=== PATIENT | male | born 1955 | race Caucasian/White ===

== ENCOUNTER 2018-02-20 16:16 | Inpatient (IN) | payer MEDICARE ==
--- NOTE | 2018-02-20 17:49 | ER Document Report ---
ED Medical Screen (RME) - General Chief Complaint: Abdominal Pain Stated Complaint: ABDOMINAL PAIN Time Seen by Provider: 02/20/18 17:36 Mode of Arrival: Wheelchair Information source: Relative Notes: 62-year-old male history of cirrhosis presents altered patient is on lactulose is concerned about elevated potassium Kd I have greeted and performed a rapid initial assessment of this patient. A comprehensive ED assessment and evaluation of the patient, analysis of test results and completion of the medical decision making process will be conducted by additional ED providers. PHYSICAL EXAMINATION: GENERAL: ill appearing HEAD: Atraumatic, normocephalic. EYES: Pupils equal round extraocular movements intact, conjunctiva are normal. ENT: Nares patent NECK: Normal range of motion LUNGS: No respiratory distress Musculoskeletal: Normal range of motion NEUROLOGICAL: spasms noted , not acting at baseline SKIN: Warm, Dry, normal turgor, no rashes or lesions noted. TRAVEL OUTSIDE OF THE [place] IN LAST 30 DAYS: No - Related Data Allergies/Adverse Reactions: No Known Allergies Allergy (Verified 02/20/18 17:40) Past Medical History - Social History Chew tobacco use (# tins/day): No Frequency of alcohol use: None Drug Abuse: None - Past Medical History Cardiac Medical History: Reports: Hx Congestive Heart Failure, Hx Coronary Artery Disease, Hx DVT, Hx Hypercholesterolemia, Hx Hypertension Denies: Hx Pulmonary Embolism Pulmonary Medical History: Reports: Hx Asthma Denies: Hx COPD, Hx Sleep Apnea Neurological Medical History: Denies: Hx Seizures Endocrine Medical History: Reports: Hx Diabetes Mellitus Type 1. Denies: Hx Hyperthyroidism, Hx Hypothyroidism Renal/ Medical History: Denies: Hx Peritoneal Dialysis GI Medical History: Reports: Hx Cirrhosis, Hx Gastroesophageal Reflux Disease, Hx Hepatitis Musculoskeltal Medical History: Reports Hx Arthritis - Osteoarthritis. Skin Medical History: Denies Hx Eczema, Denies Hx Psoriasis Psychiatric Medical History: Reports: Hx Depression Infectious Medical History: Reports: Hx Hepatitis Past Surgical History: Reports: Hx Appendectomy, Hx Cardiac Surgery - CABG X2, Hx Coronary Artery Bypass Graft, Hx Orthopedic Surgery - neck - Immunizations Immunizations up to date: Yes Hx Diphtheria, Pertussis, Tetanus Vaccination: No Physical Exam - Vital signs Vitals: Temp Pulse Resp BP Pulse Ox 99.0 F 57 L 16 113/45 L 95 02/20/18 16:30 02/20/18 16:30 02/20/18 16:30 02/20/18 16:30 02/20/18 16:30 Course - Vital Signs Vital signs: Temp Pulse Resp BP Pulse Ox 99.0 F 57 L 16 113/45 L 95 02/20/18 16:30 02/20/18 16:30 02/20/18 16:30 02/20/18 16:30 02/20/18 16:30
[2018-02-20 18:19] LABS: ABSOLUTE EOSINOPHILS # (AUTO) 0.1 10^3/uL (0.0-0.6); ABSOLUTE LYMPHOCYTES (AUTO) 1.5 10^3/uL (0.5-4.7); ABSOLUTE NEUT (AUTO) 9.6 10^3/uL (1.7-8.2); BASOPHILS % (AUTO) 0.3 % (0-2); EOSINOPHILS % (AUTO) 0.6 % (0-6); HEMATOCRIT 31.3 % (37.9-51.0); HEMOGLOBIN 10.3 g/dL (13.5-17.0); LYMPHOCYTES % (AUTO) 12.3 % (13-45); MEAN CORPUSCULAR HEMOGLOBIN 28.9 pg (27.0-33.4); MEAN CORPUSCULAR HGB CONC 32.8 g/dL (32.0-36.0); MEAN CORPUSCULAR VOLUME 88 fl (80-97); PLATELET COUNT 119 10^3/uL (150-450); RED BLOOD COUNT 3.56 10^6/uL (4.35-5.55); RED CELL DISTRIBUTION WIDTH 16.2 % (11.5-14.0); SEGMENTED NEUTROPHILS % (AUTO) 78.8 % (42-78); TOTAL CELLS COUNTED % (AUTO) 100 %; WHITE BLOOD COUNT 12.2 10^3/uL (4.0-10.5)
--- NOTE | 2018-02-20 18:20 | RADIOLOGY REPORT (SQ) ---
"EXAM DESCRIPTION: CT HEAD WITHOUT COMPLETED DATE/TIME: 02/20/2018 6:10 pm REASON FOR STUDY: altered COMPARISON: 08/28/2013 TECHNIQUE: Axial images acquired through the brain without intravenous contrast. Images reviewed wi th bone, brain and subdural windows. Additional sagittal and coronal reconstructions were generated. Images stored on PACS. All CT scanners at this facility use dose modulation, iterative reconstruction, and/or weight based d osing when appropriate to reduce radiation dose to as low as reasonably achievable (ALARA). [facility]: Dose Right [facility]: CareDose [facility]: Dose Right [facility]: Teradose 4D [facility]: Smart ideaTree - innovate | mentor | invest RADIATION DOSE: CT Rad equipment meets quality standard of care and radiation dose reduction techniq ues were employed. CTDIvol: 53.2 mGy. DLP: 991 mGy-cm. mGy. LIMITATIONS: None. FINDINGS: VENTRICLES: Normal size and contour. CEREBRUM: No masses. No hemorrhage. No midline shift. No evidence for acute infarction. Areas of l ow density in the white matter most likely chronic small vessel ischemic changes. CEREBELLUM: No masses. No hemorrhage. No evidence of acute infarction. EXTRAAXIAL SPACES: No fluid collections. No masses. ORBITS AND GLOBE: No intra- or extraconal masses. Normal contour of globe without masses. CALVARIUM: No fracture. PARANASAL SINUSES: No fluid or mucosal thickening. SOFT TISSUES: No mass or hematoma. OTHER: No other significant finding. IMPRESSION: MILD CHRONIC MICROVASCULAR ISCHEMIA. NO ACUTE IMAGING FINDINGS IN THE BRAIN. EVIDENCE OF ACUTE STROKE: NO. COMMENT: Quality ID # [id number]: Final reports with documentation of one or more dose reduction techniques (e.g., Automated exposure control, adjustment of the mA and/or kV according to patient size, use of iterative reconstruction technique) TECHNICAL DOCUMENTATION: JOB ID: [id number] [employer]- All Rights Reserved Reading location - IP/workstation name: [email or web address]"
--- NOTE | 2018-02-20 18:22 | RADIOLOGY REPORT (SQ) ---
EXAM DESCRIPTION: CHEST SINGLE VIEW COMPLETED DATE/TIME: 02/20/2018 6:14 pm REASON FOR STUDY: ALTERED (PER DR Shaw) COMPARISON: 07/25/2016 EXAM PARAMETERS: NUMBER OF VIEWS: One view. TECHNIQUE: Single frontal radiographic view of the chest acquired. RADIATION DOSE: NA LIMITATIONS: None. FINDINGS: LUNGS AND PLEURA: No opacities, masses or pneumothorax. No pleural effusion. MEDIASTINUM AND HILAR STRUCTURES: No masses. Contour normal. HEART AND VASCULAR STRUCTURES: Cardiomegaly. No evidence of failure. BONES: No acute findings. HARDWARE: Sternotomy wires. Graft markers. OTHER: No other significant finding. IMPRESSION: Cardiomegaly without CHF. TECHNICAL DOCUMENTATION: JOB ID: [id number] [employer]- All Rights Reserved Reading location - IP/workstation name: [email or web address]
[2018-02-20] MEDS ORDERED: LACTULOSE SYRUP 20 GM/30 ML UDCUP PO ONE ×3 (19:15→20:38)
--- NOTE | 2018-02-20 19:17 | ER Document Report ---
ED General - General Chief Complaint: Abdominal Pain Stated Complaint: ABDOMINAL PAIN Time Seen by Provider: 02/20/18 17:36 Mode of Arrival: Wheelchair Cannot obtain history due to: Altered mental status Notes: Patient is a 62-year-old male with a past medical history of morbid obesity, [place] with associated liver cirrhosis, insulin dependent diabetes, takes lactulose on a regular basis who presents with 48 hours of progressively worsening confusion and mild that it dictation. He has also only had one bowel movement in the past 2 days. states he has been taking medications as directed. She notes this is similar to when he has had hyperammonemia in the past. He has not seen his general doctor regarding today's concerns. History is otherwise limited as the patient is extremely lethargic. TRAVEL OUTSIDE OF THE [place] IN LAST 30 DAYS: No - Related Data Allergies/Adverse Reactions: No Known Allergies Allergy (Verified 02/20/18 17:40) Past Medical History - General Information source: Relative - Social History Smoking Status: Never Smoker Chew tobacco use (# tins/day): No Frequency of alcohol use: None Drug Abuse: None Lives with: Spouse/Significant other Family History: DM, Hypertension Patient has suicidal ideation: No Patient has homicidal ideation: No - Past Medical History Cardiac Medical History: Reports: Hx Congestive Heart Failure, Hx Coronary Artery Disease, Hx DVT, Hx Hypercholesterolemia, Hx Hypertension Denies: Hx Pulmonary Embolism Pulmonary Medical History: Reports: Hx Asthma Denies: Hx COPD, Hx Sleep Apnea Neurological Medical History: Denies: Hx Seizures Endocrine Medical History: Reports: Hx Diabetes Mellitus Type 1. Denies: Hx Hyperthyroidism, Hx Hypothyroidism Renal/ Medical History: Denies: Hx Peritoneal Dialysis GI Medical History: Reports: Hx Cirrhosis, Hx Gastroesophageal Reflux Disease, Hx Hepatitis Musculoskeltal Medical History: Reports Hx Arthritis - Osteoarthritis. Skin Medical History: Denies Hx Eczema, Denies Hx Psoriasis Psychiatric Medical History: Reports: Hx Depression Infectious Medical History: Reports: Hx Hepatitis Past Surgical History: Reports: Hx Appendectomy, Hx Cardiac Surgery - CABG X2, Hx Coronary Artery Bypass Graft, Hx Orthopedic Surgery - neck - Immunizations Immunizations up to date: Yes Hx Diphtheria, Pertussis, Tetanus Vaccination: No Hx Pneumococcal Vaccination: 06/22/15 Review of Systems - Review of Systems -: Yes ROS unobtainable due to patient's medical condition Physical Exam - Vital signs Vitals: Temp Pulse Resp BP Pulse Ox 99.0 F 57 L 16 113/45 L 95 02/20/18 16:30 02/20/18 16:30 02/20/18 16:30 02/20/18 16:30 02/20/18 16:30 Interpretation: Bradycardic Notes: PHYSICAL EXAMINATION: GENERAL: Lethargic, wakes to loud voice or noxious stimulation HEAD: Atraumatic, normocephalic. EYES: Pupils equal round and reactive to light, extraocular movements intact, sclera anicteric, conjunctiva are normal. ENT: nares patent, oropharynx clear without exudates. Mildly dry mucous membranes. NECK: Normal range of motion, supple without lymphadenopathy LUNGS: Breath sounds clear to auscultation bilaterally and equal. No wheezes rales or rhonchi. HEART: Regular bradycardia without murmurs ABDOMEN: Soft, obese abdomen, no fluid wave, no fluid visualized on bedside ultrasound suggested abdominal ascites. No focal rebound or guarding. EXTREMITIES: no pitting or edema. No cyanosis. NEUROLOGICAL: No focal neurological deficits. Moves all extremities spontaneously and on command. PSYCH: Lethargic, oriented to person and place only SKIN: Warm, Dry, normal turgor, no rashes or lesions noted. Course - Re-evaluation Re-evalutation: 02/20/18 19:16 Patient presents with altered mental status consistent with hyperammonemia in the setting of liver cirrhosis from [place]. Bedside ultrasound does not show any evidence of intraperitoneal fluid to suggest a spontaneous bacterial peritonitis. CT of the head and chest x-ray likewise clear. CMP is pending. The patient is quite lethargic, wakes only to loud voice or sternal rub and will likely require hospitalization given his degree of mental status decline. Will be started on lactulose as apparently he has had only one bowel movement over the past 2 days and he really should be having 3-4 bowel movements daily. Awaiting CMP and then will plan for admission 02/20/18 20:35 Patient is noted to have severe hyperkalemia at 7.3. EKG without marker changes. Insulin and dextrose as well as calcium will be administered. 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 Will discuss with Dr. evans for admission. - Vital Signs Vital signs: Temp Pulse Resp BP Pulse Ox 99.0 F 57 L 14 116/52 L 95 02/20/18 16:30 02/20/18 16:30 02/20/18 18:26 02/20/18 18:26 02/20/18 18:26 - Laboratory Result Diagrams: 02/20/18 17:55 02/20/18 19:40 Laboratory results interpreted by me: 02/20/18 02/20/18 02/20/18 17:55 17:55 19:16 WBC 12.2 H RBC 3.56 L Hgb 10.3 L Hct 31.3 L RDW 16.2 H Plt Count 119 L Seg Neutrophils % 78.8 H Lymphocytes % 12.3 L Absolute Neutrophils 9.6 H Sodium Potassium BUN Creatinine Est GFR (Non-Af Amer) Glucose Alkaline Phosphatase Ammonia 68.4 H Albumin Urine Ascorbic Acid 40 H 02/20/18 19:40 WBC RBC Hgb Hct RDW Plt Count Seg Neutrophils % Lymphocytes % Absolute Neutrophils Sodium 132.3 L Potassium 7.3 H* BUN 43 H Creatinine 1.38 H Est GFR (Non-Af Amer) 52 L Glucose 180 H Alkaline Phosphatase 160 H Ammonia Albumin 3.3 L Urine Ascorbic Acid - Diagnostic Test Radiology reviewed: Image reviewed, Reports reviewed Radiology results interpreted by me: 02/20/18 19:50 CT head: No acute intracranial bleed or mass Chest x-ray: No acute infiltrate Discharge - Discharge Clinical Impression: Hyperkalemia, Hyperammonemia Altered mental status Qualifiers: Altered mental status type: delirium Qualified Code(s): R41.0 - Disorientation , unspecified Condition: Fair Disposition: ADMITTED INPATIENT Admitting Provider: Sh[facility] Unit Admitted: IMCU Referrals: BETHANIE PLUNKETT MD [Primary Care Provider] - Follow up as needed
[2018-02-20 19:32] LABS: APPEARANCE,URINE CLEAR; BILIRUBIN,URINE NEGATIVE (NEGATIVE); COLOR,URINE YELLOW; GLUCOSE, URINE NEGATIVE (NEGATIVE); KETONES,URINE NEGATIVE (NEGATIVE); LEUKOCYTE ESTERASE,URINE NEGATIVE (NEGATIVE); NITRITE,URINE NEGATIVE (NEGATIVE); PROTEIN,URINE NEGATIVE (NEGATIVE); URINE SPECIFIC GRAVITY 1.012; UROBILINOGEN,URINE NEGATIVE mg/dL (<2.0)
[2018-02-20 20:20] LABS: ALANINE AMINOTRANSFERASE 41 U/L (21-72); ALBUMIN 3.3 g/dL (3.5-5.0); ALKALINE PHOSPHATASE 160 U/L (38-126); ANION GAP 11 (5-19); ASPARTATE AMINO TRANSFERASE 43 U/L (17-59); BILIRUBIN,DIRECT 0.4 mg/dL (0.0-0.4); BILIRUBIN,TOTAL 1.3 mg/dL (0.2-1.3); BLOOD UREA NITROGEN 43 mg/dL (7-20); CALCIUM 8.7 mg/dL (8.4-10.2); CARBON DIOXIDE 23 mmol/L (22-30); CHLORIDE 98 mmol/L (98-107); GLUCOSE 180 mg/dL (75-110); SODIUM 132.3 mmol/L (137-145); TOTAL PROTEIN 6.3 g/dL (6.3-8.2)
[2018-02-20] MEDS ORDERED: NORMAL SALINE 1000 ML 500 ML IV ONE (20:30)
[2018-02-20] MEDS ORDERED: CALCIUM GLUCONATE 1000 MG/10 ML INJ IV ONE (20:30)
[2018-02-20 20:31] LABS: POTASSIUM 7.3 mmol/L (3.6-5.0)
[2018-02-20] MEDS ORDERED: DEXTROSE 50%-WATER 25 GM/50 ML DISP.SYRIN IV ONE (20:34)
[2018-02-20] MEDS ORDERED: INSULIN REG, HUMAN 100 UNIT/ML 3 ML VIAL (PYX) IV ONE (20:34)
[2018-02-20] MEDS ORDERED: FUROSEMIDE INJ/PF 40 MG/4 ML SDV IV ONE (20:39)
[2018-02-20] MEDS ORDERED: SODIUM POLYSTYRENE SULFONATE 15 GM/60 ML PO ONE (23:30)
[2018-02-20] MEDS ORDERED: OXYCODONE HCL IR 5 MG TABLET PO PRN (23:51)
[2018-02-20] MEDS ORDERED: NITROGLYCERIN 0.4 MG/TAB 25 TAB/BOTTLE SL PRN (23:51)
[2018-02-20] MEDS ORDERED: ALBUTEROL SULFATE 0.083% NEB 2.5 MG/3 ML AMPUL NEB PRN (23:51)
[2018-02-21] MEDS ORDERED: LACTULOSE SYRUP 20 GM/30 ML UDCUP PO SCH
[2018-02-21] MEDS ORDERED: DEXTROSE 50%-WATER SYRINGE 25 GM/50 ML DOSE IV PRN (00:35)
[2018-02-21] MEDS ORDERED: DEXTROSE 40% GEL 15 GM TUBE X 2 PO PRN (00:35)
[2018-02-21] MEDS ORDERED: GLUCAGON,HUMAN RECOMB 1 MG INJ IM PRN (00:35)
[2018-02-21] MEDS ORDERED: DEXTROSE 40% GEL 15 GM TUBE PO PRN (00:35)
[2018-02-21] MEDS ORDERED: DEXTROSE 50%-WATER SYRINGE 12.5 GM/25 ML DOSE IV PRN (00:35)
[2018-02-21] MEDS: LACTULOSE SYRUP 20 GM/30 ML UDCUP PO SCH ×4 (04:08→21:12)
[2018-02-21] MEDS ORDERED: ALBUTEROL SULFATE 0.083% NEB 2.5 MG/3 ML AMPUL NEB PRN (06:00)
--- NOTE | 2018-02-21 06:19 | EKG REPORT ---
SEVERITY:- NORMAL ECG - SINUS RHYTHM : Confirmed by: Adalid Leary MD 21-Feb-2018 06:18:15
[2018-02-21 07:43] LABS: ABSOLUTE BASOPHILS # (AUTO) 0.1 10^3/uL (0.0-0.2); ABSOLUTE EOSINOPHILS # (AUTO) 0.1 10^3/uL (0.0-0.6); ABSOLUTE LYMPHOCYTES (AUTO) 1.4 10^3/uL (0.5-4.7); ABSOLUTE MONOCYTES (AUTO) 0.7 10^3/uL (0.1-1.4); BASOPHILS % (AUTO) 1.1 % (0-2); EOSINOPHILS % (AUTO) 1.4 % (0-6); HEMATOCRIT 28.9 % (37.9-51.0); HEMOGLOBIN 9.8 g/dL (13.5-17.0); LYMPHOCYTES % (AUTO) 19.8 % (13-45); MEAN CORPUSCULAR HEMOGLOBIN 29.7 pg (27.0-33.4); MEAN CORPUSCULAR VOLUME 87 fl (80-97); MONOCYTES % (AUTO) 9.6 % (3-13); RED BLOOD COUNT 3.31 10^6/uL (4.35-5.55); RED CELL DISTRIBUTION WIDTH 16.2 % (11.5-14.0); SEGMENTED NEUTROPHILS % (AUTO) 68.1 % (42-78); TOTAL CELLS COUNTED % (AUTO) 100 %; WHITE BLOOD COUNT 7.3 10^3/uL (4.0-10.5)
[2018-02-21 07:57] LABS: ALANINE AMINOTRANSFERASE 42 U/L (21-72); ALBUMIN 3.1 g/dL (3.5-5.0); ALKALINE PHOSPHATASE 155 U/L (38-126); ANION GAP 8 (5-19); ASPARTATE AMINO TRANSFERASE 44 U/L (17-59); BILIRUBIN,DIRECT 0.4 mg/dL (0.0-0.4); BILIRUBIN,TOTAL 1.3 mg/dL (0.2-1.3); BLOOD UREA NITROGEN 34 mg/dL (7-20); CARBON DIOXIDE 27 mmol/L (22-30); CHLORIDE 104 mmol/L (98-107); GLUCOSE 266 mg/dL (75-110); SODIUM 139.3 mmol/L (137-145); TRIGLYCERIDES 136 mg/dL (<150)
[2018-02-21] MEDS: INSULIN LISPRO 100 UNIT/ML 3 ML VIAL SUBCUT PRN ×4 (07:57→22:49)
[2018-02-21] MEDS: LANSOPRAZOLE 30 MG TAB.RAP.DR PO SCH (07:57)
[2018-02-21] MEDS ORDERED: SODIUM POLYSTYRENE SULFONATE 15 GM/60 ML PO ONE (08:00)
[2018-02-21 08:09] LABS: DIRECT LDL 67 mg/dL (<100)
[2018-02-21 08:11] LABS: POTASSIUM 6.2 mmol/L (3.6-5.0)
[2018-02-21 08:18] LABS: PLATELET COUNT 91 10^3/uL (150-450)
[2018-02-21] MEDS: ASPIRIN 81 MG TABLET, CHEWABLE PO SCH (09:10)
[2018-02-21] MEDS: PREGABALIN 100 MG CAPSULE PO SCH ×2 (09:10→17:37)
[2018-02-21] MEDS: ESCITALOPRAM OXALATE 10 MG TABLET PO SCH (09:11)
[2018-02-21] MEDS: METFORMIN HCL 500 MG TABLET PO SCH ×2 (09:11→17:38)
[2018-02-21] MEDS: FERROUS SULFATE 325 MG TABLET PO SCH ×2 (09:11→17:37)
[2018-02-21] MEDS: PROMETHAZINE HCL 25 MG TABLET PO SCH ×2 (09:11→17:38)
[2018-02-21] MEDS: LORATADINE 10 MG TABLET PO SCH (09:12)
[2018-02-21] MEDS: ENOXAPARIN SODIUM INJ 40 MG/0.4 ML DISP.SYRIN SUBCUT SCH (09:17)
[2018-02-21] MEDS: ATENOLOL 50 MG TABLET PO SCH (09:58)
[2018-02-21] MEDS ORDERED: SODIUM POLYSTYRENE SULFONATE 15 GM/60 ML PO SCH (10:00)
[2018-02-21] MEDS: FLUTICASONE NASAL SPRAY 50 MCG/SPRY 120 SPRAY/16 GM NASL SCH (10:00)
[2018-02-21] MEDS ORDERED: INSULIN GLARGINE,HUM.REC.ANLOG 1,000 UNIT/10 ML UNIT SUBCUT SCH (10:00)
--- NOTE | 2018-02-21 13:16 | PDOC H&P ---
History of Present Illness Admission Date/PCP: 02/20/18 20:50 BETHANIE PLUNKETT Patient complains of: History of confusion and change in mental status for 2 days as per pt's . 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 def. anemia/Narcolepsy/Chronic hyperkalemia/Neck pain/ Depression, who has been admitted to the hospital in the past for Hyperkalemia and elevated ammonia. He was in his baseline till about 2 days ago when he started having worsening confusion and change in mental status as per his .He has had 1 bowel movement in the past 48 hours. He was brought to ER and his potassium was 7.2. He was given calcium gluconate, Insulin and Lactulose at ER. I added Kayexelate for him last night and this morning. He was admitted to [facility] for mgt. Past Medical History Cardiac Medical History: Reports: Congestive Heart Failure, Coronary Artery Disease, DVT, Hyperlipidema, Hypertension Denies: Pulmonary Embolism Pulmonary Medical History: Reports: Asthma Denies: Chronic Obstructive Pulmonary Disease (COPD), Sleep Apnea Neurological Medical History: Denies: Seizures Endocrine Medical History: Reports: Diabetes Mellitus Type 1 Denies: Hyperthyroidism, Hypothyroidism GI Medical History: Reports: Cirrhosis, Gastroesophageal Reflux Disease, Hepatitis Musculoskeltal Medical History: Reports: Arthritis - Osteoarthritis. Skin Medical History: Denies: Eczema, Psoriasis Psychiatric Medical History: Reports: Depression Past Surgical History Past Surgical History: Reports: Appendectomy, Coronary Artery Bypass Graft, Orthopedic Surgery - neck Social History Lives with: Spouse/Significant other Smoking Status: Never Smoker Frequency of Alcohol Use: None Hx Recreational Drug Use: No Drugs: None Hx Prescription Drug Abuse: No Family History Family History: DM, Hypertension Parental Family History Reviewed: Yes Children Family History Reviewed: Yes Sibling(s) Family History Reviewed.: Yes Medication/Allergy Home Medications: Atenolol [Tenormin 100 mg Tablet] 100 mg PO QAM 02/21/18 Atorvastatin Calcium [Lipitor 20 mg Tablet] 20 mg PO QPM 02/21/18 Ergocalciferol (Vitamin D2) [Drisdol 50,000 unit (1.25MG) Capsule] 50,000 unit PO MO@1000 02/21/18 Escitalopram Oxalate [Lexapro] 20 mg PO QHS 02/21/18 Esomeprazole Magnesium [Nexium] 40 mg PO QAM 02/21/18 Furosemide [Lasix 20 mg Tablet] 20 mg PO QHS 02/21/18 Insulin Aspart [Novolog Flexpen] 10 units SQ .BEFORE SNACKS 02/21/18 Insulin Aspart [Novolog Flexpen] 30 unit SQ MEALS 02/21/18 Insulin Glargine,Hum.rec.anlog [Lantus Solostar] 65 units SQ BID 02/21/18 Lactulose [Enulose 10 gm/15 mL Oral Solution] 30 mg PO QID 02/21/18 Lisinopril [Prinivil 40 mg Tablet] 40 mg PO QAM 02/21/18 Metformin HCl [Glucophage] 1,000 mg PO BID 02/21/18 Methadone HCl [Dolophine 10 mg Tablet] 10 mg PO Q8HP PRN 02/21/18 Modafinil [Provigil] 200 mg PO DAILY 02/21/18 Oxycodone HCl [Oxycodone HCl 10 MG Tablet] 10 mg PO Q8HP PRN 02/21/18 Pregabalin [Lyrica 100 mg Capsule] 100 mg PO Q12 02/21/18 Promethazine HCl [Phenergan 25 mg Tablet] 25 mg PO Q12HP PRN 02/21/18 Spironolactone [Aldactone] 50 mg PO QAM 02/21/18 Allergies/Adverse Reactions: No Known Allergies Allergy (Verified 02/20/18 17:40) Review of Systems Constitutional: PRESENT: as per HPI Eyes: PRESENT: as per HPI Ears: PRESENT: as per HPI Nose, Mouth, and Throat: PRESENT: as per HPI Breasts: PRESENT: as per HPI Cardiovascular: PRESENT: as per HPI Respiratory: PRESENT: as per HPI Gastrointestinal: PRESENT: as per HPI Genitourinary: PRESENT: as per HPI Musculoskeletal: PRESENT: as per HPI Integumentary: PRESENT: as per HPI Neurological: PRESENT: confusion Physical Exam Vital Signs: Temp Pulse Resp BP Pulse Ox 99.0 F 78 12 139/47 H 97 02/21/18 12:02 02/21/18 12:02 02/21/18 12:02 02/21/18 12:02 02/21/18 12:02 Intake & Output 02/20/18 02/21/18 02/22/18 06:59 06:59 06:59 Intake Total 20 Output Total 2150 Balance -2130 Weight 107.3 kg General appearance: PRESENT: no acute distress, obese, well-developed, well- nourished Head exam: PRESENT: atraumatic, normocephalic Eye exam: PRESENT: conjunctiva pink, EOMI, PERRLA. ABSENT: scleral icterus Ear exam: PRESENT: normal external ear exam Mouth exam: PRESENT: moist, tongue midline Neck exam: PRESENT: full ROM. ABSENT: carotid bruit, JVD, lymphadenopathy, thyromegaly Respiratory exam: PRESENT: clear to auscultation jhonatan, symmetrical Cardiovascular exam: PRESENT: RRR, +S1, +S2. ABSENT: diastolic murmur, rubs, systolic murmur Pulses: PRESENT: normal dorsalis pedis pul, +2 pedal pulses bilateral Vascular exam: PRESENT: normal capillary refill GI/Abdominal exam: PRESENT: normal bowel sounds, soft. ABSENT: distended, guarding, mass, organolmegaly, rebound, tenderness Rectal exam: PRESENT: deferred Extremities exam: PRESENT: full ROM Musculoskeletal exam: PRESENT: full ROM Neurological exam: PRESENT: alert, altered, awake, oriented to person, oriented to place, oriented to time, oriented to situation, CN II-XII grossly intact. ABSENT: motor sensory deficit Additional comments: Lethargic, but awakes and answers questions correctly. Psychiatric exam: PRESENT: appropriate affect, normal mood. ABSENT: homicidal ideation, suicidal ideation Skin exam: PRESENT: dry, intact, warm. ABSENT: cyanosis, rash Results Laboratory Results: 02/21/18 07:13 02/21/18 07:13 02/21/18 02/21/18 02/21/18 07:13 07:13 07:13 WBC 7.3 RBC 3.31 L Hgb 9.8 L Hct 28.9 L MCV 87 MCH 29.7 MCHC 34.0 RDW 16.2 H Plt Count 91 L Seg Neutrophils % 68.1 Lymphocytes % 19.8 Monocytes % 9.6 Eosinophils % 1.4 Basophils % 1.1 Absolute Neutrophils 5.0 Absolute Lymphocytes 1.4 Absolute Monocytes 0.7 Absolute Eosinophils 0.1 Absolute Basophils 0.1 Sodium 139.3 Potassium 6.2 H* D Chloride 104 Carbon Dioxide 27 Anion Gap 8 BUN 34 H Creatinine 1.12 Est GFR ( Amer) > 60 Est GFR (Non-Af Amer) > 60 Glucose 266 H Calcium 9.0 Total Bilirubin 1.3 AST 44 ALT 42 Alkaline Phosphatase 155 H Ammonia Total Protein 6.0 L Albumin 3.1 L Triglycerides 136 Cholesterol 118.40 LDL Cholesterol Direct 67 VLDL Cholesterol 27.0 HDL Cholesterol 32 L TSH 1.51 02/21/18 07:13 WBC RBC Hgb Hct MCV MCH MCHC RDW Plt Count Seg Neutrophils % Lymphocytes % Monocytes % Eosinophils % Basophils % Absolute Neutrophils Absolute Lymphocytes Absolute Monocytes Absolute Eosinophils Absolute Basophils Sodium Potassium Chloride Carbon Dioxide Anion Gap BUN Creatinine Est GFR ( Amer) Est GFR (Non-Af Amer) Glucose Calcium Total Bilirubin AST ALT Alkaline Phosphatase Ammonia 69.5 H Total Protein Albumin Triglycerides Cholesterol LDL Cholesterol Direct VLDL Cholesterol HDL Cholesterol TSH Impressions: Chest X-Ray 02/20/18 00:00 IMPRESSION: Cardiomegaly without CHF. Head CT 02/20/18 17:47 IMPRESSION: MILD CHRONIC MICROVASCULAR ISCHEMIA. NO ACUTE IMAGING FINDINGS IN THE BRAIN. EVIDENCE OF ACUTE STROKE: NO. Assessment & Plan - Diagnosis (1) Altered mental status Qualifiers: Altered mental status type: delirium Qualified Code(s): R41.0 - Disorientation, unspecified Is this a current diagnosis for this admission?: Yes Plan: Monitor his mental status closely; ct with Lactulose 20 g q6h po; Correct Hyperkalemia; monitor chemistries daily. (2) Hepatic encephalopathy Is this a current diagnosis for this admission?: Yes Plan: Ct with Lactulose 20 g(30ml) q6h po; monitor mental status and chemistries daily. (3) Hyperkalemia Is this a current diagnosis for this admission?: Yes Plan: Ct with Kayexelate 30 g BID PO; Pt had received IV calcium gluconate and Insulin with dextrose at ED. Hold Lisinopril and Spironolactone for now. Monitor chemistries daily and telemetry. (4) Diabetes mellitus type 2 in obese Is this a current diagnosis for this admission?: Yes Plan: Ct with Metformin 1000mg BID PO; Lantus insulin 65 iu BID subcut; accucheck qac , qhs with slidding scale with humalog insulin OM protocol; 1800 calorie ADA diet. (5) Hypertension Qualifiers: Hypertension type: essential hypertension Qualified Code(s): I10 - Essential (primary) hypertension Is this a current diagnosis for this admission?: Yes Plan: Ct with Atenolol 100 mg qd po; 2 g sodium diet; Hold off Lisinopril due to hyperkalemia. (6) Hyperlipidemia Qualifiers: Hyperlipidemia type: unspecified Qualified Code(s): E78.5 - Hyperlipidemia , unspecified Is this a current diagnosis for this admission?: Yes Plan: Ct with Atorvastatin 20 mg qhs po; 200 mg cholesterol diet. (7) Diabetic neuropathy Is this a current diagnosis for this admission?: Yes Plan: Ct with Lyrica 100 mg BID po. (8) Coronary artery disease Qualifiers: Coronary Disease-Associated Artery/Lesion type: [place] artery [place] vs. transplanted heart: [place] heart Associated angina: without angina Qualified Code(s): I25.10 - Atherosclerotic heart disease of [place] coronary artery without angina pectoris Is this a current diagnosis for this admission?: Yes Plan: Ct with Aspirin 81 mg qd po; NTG 0.4 mg S/L q5 minutes prn x3; cardiac diet. (9) Asthma Qualifiers: Asthma severity: unspecified severity Asthma complication type: uncomplicated Qualified Code(s): J45.909 - Unspecified asthma, uncomplicated Is this a current diagnosis for this admission?: Yes Plan: Ct with Albuterol nebs 2.5 mg q6h prn. (10) Cirrhosis Qualifiers: Hepatic cirrhosis type: other cirrhosis Qualified Code(s): K74.69 - Other cirrhosis of liver Is this a current diagnosis for this admission?: Yes Plan: Ct with Lasix 20 mg qd po; hold spironolactone due to hyperkalemia. Ct with Lactulose 20 g q6h po. (11) Narcolepsy Is this a current diagnosis for this admission?: Yes Plan: Ct with Provigil 200 mg qd po. (12) Reflux esophagitis Is this a current diagnosis for this admission?: Yes Plan: Ct with Prevacid 30 mg qd po since we do not have Nexium in our formulary. (13) Cervicalgia Is this a current diagnosis for this admission?: Yes Plan: Ct with Oxycodone 15 mg q6h prn po. (14) Rhinitis, allergic Qualifiers: Allergic rhinitis seasonality: seasonal Is this a current diagnosis for this admission?: Yes Plan: Ct with Claritin 10 mg qd po; Flonase nasal spray- 1 spray daily. (15) Vitamin D deficiency Is this a current diagnosis for this admission?: Yes Plan: Ct with Vitamin D [id number] weekly po. (16) Depression Is this a current diagnosis for this admission?: Yes Plan: Ct with Lexapro 20 mg qd po. (17) Anemia of chronic disease Is this a current diagnosis for this admission?: Yes Plan: Ct with Ferrous sulfate 325 mg BID po.Monitor CBC daily. (18) DVT prophylaxis Is this a current diagnosis for this admission?: Yes Plan: Ct with Lovenox 40 mg qd subcut; SCD. - Time Time Spent: 30 to 50 Minutes Smoking Cessation Education: 3 to 10 minutes Medications reviewed and adjusted accordingly: Yes Anticipated discharge: Home Within: within 72 hours - Inpatient Certification Medical Necessity: Failure to Improve With Outpatient Therapy, Significant Comorbidiites Make Outpatient Treatment Too Risky, Need Close Monitoring Due to Risk of Patient Decompensation, Need For Continuous Telemetry Monitoring, Need for Nebulizer Therapy and Monitoring of Response, Need for Neurological Checks, Risk of Complication if Not Cared For in Hospital, Risk of Diagnosis Which Will Require Inpatient Eval/Care/Monitoring
[2018-02-21] MEDS: INSULIN GLARGINE,HUM.REC.ANLOG 1,000 UNIT/10 ML UNIT SUBCUT SCH (17:37)
[2018-02-21] MEDS: FUROSEMIDE 20 MG TABLET PO SCH (21:16)
[2018-02-21] MEDS: ATORVASTATIN CALCIUM 20 MG TABLET PO SCH (21:17)
[2018-02-21] MEDS: SODIUM POLYSTYRENE SULFONATE 15 GM/60 ML PO SCH (21:18)
[2018-02-22] MEDS: LACTULOSE SYRUP 20 GM/30 ML UDCUP PO SCH ×4 (04:18→21:10)
[2018-02-22] MEDS: OXYCODONE HCL IR 5 MG TABLET PO PRN ×3 (04:30→19:16)
[2018-02-22 07:03] LABS: ABSOLUTE BASOPHILS # (AUTO) 0.1 10^3/uL (0.0-0.2); ABSOLUTE EOSINOPHILS # (AUTO) 0.1 10^3/uL (0.0-0.6); ABSOLUTE LYMPHOCYTES (AUTO) 1.7 10^3/uL (0.5-4.7); ABSOLUTE MONOCYTES (AUTO) 0.6 10^3/uL (0.1-1.4); ABSOLUTE NEUT (AUTO) 3.1 10^3/uL (1.7-8.2); EOSINOPHILS % (AUTO) 1.9 % (0-6); HEMOGLOBIN 10.4 g/dL (13.5-17.0); LYMPHOCYTES % (AUTO) 30.2 % (13-45); MEAN CORPUSCULAR HEMOGLOBIN 29.3 pg (27.0-33.4); MEAN CORPUSCULAR HGB CONC 33.7 g/dL (32.0-36.0); MEAN CORPUSCULAR VOLUME 87 fl (80-97); MONOCYTES % (AUTO) 11.1 % (3-13); PLATELET COUNT 102 10^3/uL (150-450); RED BLOOD COUNT 3.56 10^6/uL (4.35-5.55); RED CELL DISTRIBUTION WIDTH 16.2 % (11.5-14.0); SEGMENTED NEUTROPHILS % (AUTO) 55.8 % (42-78); TOTAL CELLS COUNTED % (AUTO) 100 %; WHITE BLOOD COUNT 5.6 10^3/uL (4.0-10.5)
[2018-02-22 07:21] LABS: ALANINE AMINOTRANSFERASE 43 U/L (21-72); ALBUMIN 3.2 g/dL (3.5-5.0); ALKALINE PHOSPHATASE 148 U/L (38-126); ANION GAP 11 (5-19); ASPARTATE AMINO TRANSFERASE 43 U/L (17-59); BILIRUBIN,DIRECT 0.4 mg/dL (0.0-0.4); BILIRUBIN,TOTAL 0.9 mg/dL (0.2-1.3); BLOOD UREA NITROGEN 24 mg/dL (7-20); CALCIUM 9.3 mg/dL (8.4-10.2); CARBON DIOXIDE 27 mmol/L (22-30); CHLORIDE 108 mmol/L (98-107); GLUCOSE 133 mg/dL (75-110); TOTAL PROTEIN 6.2 g/dL (6.3-8.2)
[2018-02-22 07:44] LABS: POTASSIUM 4.9 mmol/L (3.6-5.0)
[2018-02-22] MEDS: LANSOPRAZOLE 30 MG TAB.RAP.DR PO SCH (08:52)
[2018-02-22] MEDS: INSULIN LISPRO 100 UNIT/ML 3 ML VIAL SUBCUT PRN ×4 (09:52→21:58)
[2018-02-22] MEDS: INSULIN GLARGINE,HUM.REC.ANLOG 1,000 UNIT/10 ML UNIT SUBCUT SCH ×2 (09:52→17:59)
[2018-02-22] MEDS: FERROUS SULFATE 325 MG TABLET PO SCH ×2 (09:53→17:59)
[2018-02-22] MEDS: ENOXAPARIN SODIUM INJ 40 MG/0.4 ML DISP.SYRIN SUBCUT SCH (09:53)
[2018-02-22] MEDS: METFORMIN HCL 500 MG TABLET PO SCH ×2 (09:54→18:00)
[2018-02-22] MEDS: ESCITALOPRAM OXALATE 10 MG TABLET PO SCH (09:54)
[2018-02-22] MEDS: PREGABALIN 100 MG CAPSULE PO SCH ×2 (09:54→18:00)
[2018-02-22] MEDS: PROMETHAZINE HCL 25 MG TABLET PO SCH ×2 (09:55→18:00)
[2018-02-22] MEDS: LORATADINE 10 MG TABLET PO SCH (09:55)
[2018-02-22] MEDS: ATENOLOL 50 MG TABLET PO SCH (09:56)
[2018-02-22] MEDS: SODIUM POLYSTYRENE SULFONATE 15 GM/60 ML PO SCH (09:57)
[2018-02-22] MEDS: FLUTICASONE NASAL SPRAY 50 MCG/SPRY 120 SPRAY/16 GM NASL SCH (09:59)
[2018-02-22] MEDS: ASPIRIN 81 MG TABLET, CHEWABLE PO SCH (10:01)
--- NOTE | 2018-02-22 13:10 | PDOC PROGRESS REPORT ---
Subjective Progress Note for:: 02/22/18 Subjective:: He is doing better today and was able to walk up to 300 feet with physical therapy. His Potassium is normal at 4.9 and ammonia at 24. I added Amlodipine 10 m qd to help optimize his BP control since Lisinopril and Spironolactone wre D/C due to hypokalemia. He was seen by medical planner and he has no needs presently. He will be possibly discharged home tomorrow. Reason For Visit: AMS Physical Exam Vital Signs: Temp Pulse Resp BP Pulse Ox 97.9 F 80 14 142/47 H 98 02/22/18 12:38 02/22/18 12:38 02/22/18 12:38 02/22/18 12:38 02/22/18 12:38 Intake & Output 02/21/18 02/22/18 02/23/18 06:59 06:59 06:59 Intake Total 20 715 Output Total 2150 1300 Balance -2130 -585 Weight 107.3 kg 107.9 kg General appearance: PRESENT: no acute distress, cooperative, obese, well- developed, well-nourished Head exam: PRESENT: atraumatic Eye exam: PRESENT: EOMI, PERRLA Ear exam: PRESENT: normal external ear exam, TM's normal bilaterally Mouth exam: PRESENT: moist, neck supple, tongue midline Neck exam: PRESENT: full ROM Respiratory exam: PRESENT: clear to auscultation jhonatan, symmetrical Cardiovascular exam: PRESENT: +S1, +S2 Pulses: PRESENT: +2 pedal pulses bilateral GI/Abdominal exam: PRESENT: normal bowel sounds, soft Rectal exam: PRESENT: deferred Extremities exam: PRESENT: full ROM Musculoskeletal exam: PRESENT: full ROM Neurological exam: PRESENT: alert, awake, oriented to person, oriented to place , oriented to time Psychiatric exam: PRESENT: normal mood Results Laboratory Results: 02/22/18 06:39 02/22/18 06:39 02/22/18 02/22/18 02/22/18 06:39 06:39 06:39 WBC 5.6 RBC 3.56 L Hgb 10.4 L Hct 31.0 L MCV 87 MCH 29.3 MCHC 33.7 RDW 16.2 H Plt Count 102 L Seg Neutrophils % 55.8 Lymphocytes % 30.2 Monocytes % 11.1 Eosinophils % 1.9 Basophils % 1.0 Absolute Neutrophils 3.1 Absolute Lymphocytes 1.7 Absolute Monocytes 0.6 Absolute Eosinophils 0.1 Absolute Basophils 0.1 Sodium 146.0 H Potassium 4.9 D Chloride 108 H Carbon Dioxide 27 Anion Gap 11 BUN 24 H Creatinine 0.83 Est GFR ( Amer) > 60 Est GFR (Non-Af Amer) > 60 Glucose 133 H Calcium 9.3 Total Bilirubin 0.9 AST 43 ALT 43 Alkaline Phosphatase 148 H Ammonia 21.6 Total Protein 6.2 L Albumin 3.2 L Impressions: Chest X-Ray 02/20/18 00:00 IMPRESSION: Cardiomegaly without CHF. Head CT 02/20/18 17:47 IMPRESSION: MILD CHRONIC MICROVASCULAR ISCHEMIA. NO ACUTE IMAGING FINDINGS IN THE BRAIN. EVIDENCE OF ACUTE STROKE: NO. Assessment & Plan - Diagnosis (1) Altered mental status Qualifiers: Altered mental status type: delirium Qualified Code(s): R41.0 - Disorientation, unspecified Is this a current diagnosis for this admission?: Yes Plan: Monitor his mental status closely; ct with Lactulose 20 g q6h po; Correct Hyperkalemia; monitor chemistries daily. (2) Hepatic encephalopathy Is this a current diagnosis for this admission?: Yes Plan: Ct with Lactulose 20 g(30ml) q6h po; monitor mental status and chemistries daily. (3) Hyperkalemia Is this a current diagnosis for this admission?: Yes Plan: Ct with Kayexelate 30 g BID PO; Pt had received IV calcium gluconate and Insulin with dextrose at ED. Hold Lisinopril and Spironolactone for now. Monitor chemistries daily and telemetry. (4) Diabetes mellitus type 2 in obese Is this a current diagnosis for this admission?: Yes Plan: Ct with Metformin 1000mg BID PO; Lantus insulin 65 iu BID subcut; accucheck qac , qhs with slidding scale with humalog insulin [facility] protocol; 1800 calorie ADA diet. (5) Hypertension Qualifiers: Hypertension type: essential hypertension Qualified Code(s): I10 - Essential (primary) hypertension Is this a current diagnosis for this admission?: Yes Plan: Ct with Atenolol 100 mg qd po; Add Amlodipine 10 mg qd po; 2 g sodium diet; Hold off Lisinopril due to hyperkalemia. (6) Hyperlipidemia Qualifiers: Hyperlipidemia type: unspecified Qualified Code(s): E78.5 - Hyperlipidemia , unspecified Is this a current diagnosis for this admission?: Yes Plan: Ct with Atorvastatin 20 mg qhs po; 200 mg cholesterol diet. (7) Diabetic neuropathy Is this a current diagnosis for this admission?: Yes Plan: Ct with Lyrica 100 mg BID po. (8) Coronary artery disease Qualifiers: Coronary Disease-Associated Artery/Lesion type: [place] artery [place] vs. transplanted heart: [place] heart Associated angina: without angina Qualified Code(s): I25.10 - Atherosclerotic heart disease of [place] coronary artery without angina pectoris Is this a current diagnosis for this admission?: Yes Plan: Ct with Aspirin 81 mg qd po; NTG 0.4 mg S/L q5 minutes prn x3; cardiac diet. (9) Asthma Qualifiers: Asthma severity: unspecified severity Asthma complication type: uncomplicated Qualified Code(s): J45.909 - Unspecified asthma, uncomplicated Is this a current diagnosis for this admission?: Yes Plan: Ct with Albuterol nebs 2.5 mg q6h prn. (10) Cirrhosis Qualifiers: Hepatic cirrhosis type: other cirrhosis Qualified Code(s): K74.69 - Other cirrhosis of liver Is this a current diagnosis for this admission?: Yes Plan: Ct with Lasix 20 mg qd po; hold spironolactone due to hyperkalemia. Ct with Lactulose 20 g q6h po. (11) Narcolepsy Is this a current diagnosis for this admission?: Yes Plan: Ct with Provigil 200 mg qd po. (12) Reflux esophagitis Is this a current diagnosis for this admission?: Yes Plan: Ct with Prevacid 30 mg qd po since we do not have Nexium in our formulary. (13) Cervicalgia Is this a current diagnosis for this admission?: Yes Plan: Ct with Oxycodone 15 mg q6h prn po. (14) Rhinitis, allergic Qualifiers: Allergic rhinitis seasonality: seasonal Is this a current diagnosis for this admission?: Yes Plan: Ct with Claritin 10 mg qd po; Flonase nasal spray- 1 spray daily. (15) Vitamin D deficiency Is this a current diagnosis for this admission?: Yes Plan: Ct with Vitamin D [id number] weekly po. (16) Depression Is this a current diagnosis for this admission?: Yes Plan: Ct with Lexapro 20 mg qd po. (17) Anemia of chronic disease Is this a current diagnosis for this admission?: Yes Plan: Ct with Ferrous sulfate 325 mg BID po.Monitor CBC daily. (18) DVT prophylaxis Is this a current diagnosis for this admission?: Yes Plan: Ct with Lovenox 40 mg qd subcut; SCD.
[2018-02-22] MEDS ORDERED: AMLODIPINE BESYLATE 10 MG TABLET PO ONE (14:00)
[2018-02-22] MEDS ORDERED: ONDANSETRON HCL INJ/PF 4 MG/2 ML SDV IV PRN (19:27)
[2018-02-22] MEDS ORDERED: ONDANSETRON HCL INJ/PF 4 MG/2 ML SDV ONE (20:54)
[2018-02-22] MEDS: ATORVASTATIN CALCIUM 20 MG TABLET PO SCH (21:53)
[2018-02-22] MEDS: FUROSEMIDE 20 MG TABLET PO SCH (21:53)
[2018-02-23] MEDS: LACTULOSE SYRUP 20 GM/30 ML UDCUP PO SCH ×3 (02:22→15:17)
[2018-02-23] MEDS: OXYCODONE HCL IR 5 MG TABLET PO PRN ×2 (03:58→09:51)
[2018-02-23 05:20] LABS: ABSOLUTE EOSINOPHILS # (AUTO) 0.2 10^3/uL (0.0-0.6); ABSOLUTE LYMPHOCYTES (AUTO) 1.6 10^3/uL (0.5-4.7); ABSOLUTE MONOCYTES (AUTO) 0.6 10^3/uL (0.1-1.4); ABSOLUTE NEUT (AUTO) 2.6 10^3/uL (1.7-8.2); BASOPHILS % (AUTO) 0.9 % (0-2); EOSINOPHILS % (AUTO) 3.1 % (0-6); HEMOGLOBIN 10.2 g/dL (13.5-17.0); LYMPHOCYTES % (AUTO) 31.6 % (13-45); MEAN CORPUSCULAR HEMOGLOBIN 29.6 pg (27.0-33.4); MEAN CORPUSCULAR HGB CONC 34.1 g/dL (32.0-36.0); MEAN CORPUSCULAR VOLUME 87 fl (80-97); MONOCYTES % (AUTO) 11.7 % (3-13); RED BLOOD COUNT 3.45 10^6/uL (4.35-5.55); RED CELL DISTRIBUTION WIDTH 15.7 % (11.5-14.0); SEGMENTED NEUTROPHILS % (AUTO) 52.7 % (42-78); TOTAL CELLS COUNTED % (AUTO) 100 %
[2018-02-23 05:25] LABS: ALANINE AMINOTRANSFERASE 44 U/L (21-72); ALBUMIN 3.1 g/dL (3.5-5.0); ALKALINE PHOSPHATASE 158 U/L (38-126); ANION GAP 14 (5-19); ASPARTATE AMINO TRANSFERASE 43 U/L (17-59); BILIRUBIN,DIRECT 0.4 mg/dL (0.0-0.4); BILIRUBIN,TOTAL 0.8 mg/dL (0.2-1.3); BLOOD UREA NITROGEN 17 mg/dL (7-20); CALCIUM 8.9 mg/dL (8.4-10.2); CARBON DIOXIDE 27 mmol/L (22-30); CHLORIDE 104 mmol/L (98-107); GLUCOSE 137 mg/dL (75-110); POTASSIUM 4.3 mmol/L (3.6-5.0); SODIUM 144.5 mmol/L (137-145); TOTAL PROTEIN 6.3 g/dL (6.3-8.2)
[2018-02-23 05:51] LABS: PLATELET COUNT 99 10^3/uL (150-450)
[2018-02-23] MEDS: PREGABALIN 100 MG CAPSULE PO SCH (09:47)
[2018-02-23] MEDS: ESCITALOPRAM OXALATE 10 MG TABLET PO SCH (09:47)
[2018-02-23] MEDS: METFORMIN HCL 500 MG TABLET PO SCH (09:47)
[2018-02-23] MEDS: ASPIRIN 81 MG TABLET, CHEWABLE PO SCH (09:49)
[2018-02-23] MEDS: PROMETHAZINE HCL 25 MG TABLET PO SCH (09:49)
[2018-02-23] MEDS: LANSOPRAZOLE 30 MG TAB.RAP.DR PO SCH (09:49)
[2018-02-23] MEDS: FERROUS SULFATE 325 MG TABLET PO SCH (09:50)
[2018-02-23] MEDS: ATENOLOL 50 MG TABLET PO SCH (09:50)
[2018-02-23] MEDS: INSULIN GLARGINE,HUM.REC.ANLOG 1,000 UNIT/10 ML UNIT SUBCUT SCH (09:51)
[2018-02-23] MEDS: FLUTICASONE NASAL SPRAY 50 MCG/SPRY 120 SPRAY/16 GM NASL SCH (09:52)
[2018-02-23] MEDS: LORATADINE 10 MG TABLET PO SCH (09:57)
[2018-02-23] MEDS: ENOXAPARIN SODIUM INJ 40 MG/0.4 ML DISP.SYRIN SUBCUT SCH (09:58)
[2018-02-23] MEDS ORDERED: AMLODIPINE BESYLATE 10 MG TABLET PO SCH (10:00)
[2018-02-23] MEDS ORDERED: INSULIN LISPRO 100 UNIT/ML 3 ML VIAL SUBCUT SCH (12:00)
[2018-02-23] MEDS: INSULIN LISPRO 100 UNIT/ML 3 ML VIAL SUBCUT PRN (13:02)
--- NOTE | 2018-02-23 14:49 | PDOC DISCHARGE SUMMARY ---
General - Admit/Disc Date/PCP Admission Date/Primary Care Provider: 02/20/18 20:50 BETHANIE PLUNKETT Discharge Date: 02/23/18 - Discharge Diagnosis (1) Altered mental status Is this a current diagnosis for this admission?: Yes (2) Hepatic encephalopathy Is this a current diagnosis for this admission?: Yes (3) Hyperkalemia Is this a current diagnosis for this admission?: Yes (4) Diabetes mellitus type 2 in obese Is this a current diagnosis for this admission?: Yes (5) Hypertension Is this a current diagnosis for this admission?: Yes (6) Hyperlipidemia Is this a current diagnosis for this admission?: Yes (7) Diabetic neuropathy Is this a current diagnosis for this admission?: Yes (8) Coronary artery disease Is this a current diagnosis for this admission?: Yes (9) Asthma Is this a current diagnosis for this admission?: Yes (10) Cirrhosis Is this a current diagnosis for this admission?: Yes (11) Narcolepsy Is this a current diagnosis for this admission?: Yes (12) Reflux esophagitis Is this a current diagnosis for this admission?: Yes (13) Cervicalgia Is this a current diagnosis for this admission?: Yes (14) Rhinitis, allergic Is this a current diagnosis for this admission?: Yes (15) Vitamin D deficiency Is this a current diagnosis for this admission?: Yes (16) Depression Is this a current diagnosis for this admission?: Yes (17) Anemia of chronic disease Is this a current diagnosis for this admission?: Yes (18) DVT prophylaxis Is this a current diagnosis for this admission?: Yes - Additional Information Prescriptions: Amlodipine Besylate [Norvasc 10 mg Tablet] 10 mg PO DAILY #30 tablet Home Medications: Atenolol [Tenormin 100 mg Tablet] 100 mg PO QAM 02/21/18 Atorvastatin Calcium [Lipitor 20 mg Tablet] 20 mg PO QPM 02/21/18 Ergocalciferol (Vitamin D2) [Drisdol 50,000 unit (1.25MG) Capsule] 50,000 unit PO MO@1000 02/21/18 Escitalopram Oxalate [Lexapro] 20 mg PO QHS 02/21/18 Esomeprazole Magnesium [Nexium] 40 mg PO QAM 02/21/18 Furosemide [Lasix 20 mg Tablet] 20 mg PO QHS 02/21/18 Insulin Aspart [Novolog Flexpen] 10 units SQ .BEFORE SNACKS 02/21/18 Insulin Aspart [Novolog Flexpen] 30 unit SQ MEALS 02/21/18 Insulin Glargine,Hum.rec.anlog [Lantus Solostar] 65 units SQ BID 02/21/18 Lactulose [Enulose 10 gm/15 mL Oral Solution] 30 mg PO QID 02/21/18 Metformin HCl [Glucophage] 1,000 mg PO BID 02/21/18 Methadone HCl [Dolophine 10 mg Tablet] 10 mg PO Q8HP PRN 02/21/18 Modafinil [Provigil] 200 mg PO DAILY 02/21/18 Oxycodone HCl [Oxycodone HCl 10 MG Tablet] 10 mg PO Q8HP PRN 02/21/18 Pregabalin [Lyrica 100 mg Capsule] 100 mg PO Q12 02/21/18 Promethazine HCl [Phenergan 25 mg Tablet] 25 mg PO Q12HP PRN 02/21/18 Amlodipine Besylate [Norvasc 10 mg Tablet] 10 mg PO DAILY #30 tablet 02/23/18 History of Present Illness History of Present Illness: WINDY BERMAN is a 62 year old male with h xof DM2/HTN/Hyperlipidemia/DM neuropathy/Asthma/GERD/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 def. anemia/Narcolepsy/Chronic hyperkalemia/Neck pain/ Depression, who has been admitted to the hospital in the past for Hyperkalemia and elevated ammonia. He was in his baseline till about 2 days ago when he started having worsening confusion and change in mental status as per his .He has had 1 bowel movement in the past 48 hours. He was brought to ER and his potassium was 7.2. He was given calcium gluconate, Insulin and Lactulose at ER. I added Kayexelate for him last night and this morning. He was admitted to [facility] for mgt. Hospital Course Hospital Course: 62 year old man who was admitted to [facility] for altered mental status/Hepatic encephalopathy/Severe hyperkalemia. He had Calcium gluconate, IV insulin with D50, Kayexelate, Lactulose. He was monitored closely at [facility].We discontinued Spironolactone and Lisinopril which are culprits for the hyperkalemia, and added Amlodipine 10 mg qd po to help optimize BP control. His Potasium and ammonia are back to normal and his mental status is back to his baseline. He was seen by PT/OT and discharge planer and he has no discharge needs. He will be discharged home today to follow up with me within 1 week for transition of care. Both patient and his are in agreement with this plan of care. Physical Exam Vital Signs: Temp Pulse Resp BP Pulse Ox 98.3 F 75 22 H 164/67 H 100 02/23/18 12:00 02/23/18 12:00 02/23/18 12:00 02/23/18 12:00 02/23/18 12:00 Intake & Output 02/22/18 02/23/18 02/24/18 06:59 06:59 06:59 Intake Total 715 1515 Output Total 1300 400 Balance -585 1515 -400 Weight 107.9 kg 103.4 kg General appearance: PRESENT: no acute distress, cooperative, hard of hearing, obese, well-developed, well-nourished Head exam: PRESENT: normocephalic Eye exam: PRESENT: EOMI, PERRLA Ear exam: PRESENT: normal external ear exam, TM's normal bilaterally Mouth exam: PRESENT: moist, neck supple, tongue midline Neck exam: PRESENT: full ROM Respiratory exam: PRESENT: clear to auscultation jhonatan, symmetrical Cardiovascular exam: PRESENT: +S1, +S2 Pulses: PRESENT: +2 pedal pulses bilateral GI/Abdominal exam: PRESENT: normal bowel sounds, soft Rectal exam: PRESENT: deferred Extremities exam: PRESENT: full ROM Musculoskeletal exam: PRESENT: full ROM Neurological exam: PRESENT: alert, awake, oriented to person, oriented to place , oriented to time Psychiatric exam: PRESENT: normal mood Results Laboratory Results: 02/23/18 04:51 02/23/18 04:51 02/23/18 02/23/18 02/23/18 04:51 04:51 04:51 WBC 5.0 RBC 3.45 L Hgb 10.2 L Hct 30.0 L MCV 87 MCH 29.6 MCHC 34.1 RDW 15.7 H Plt Count 99 L Seg Neutrophils % 52.7 Lymphocytes % 31.6 Monocytes % 11.7 Eosinophils % 3.1 Basophils % 0.9 Absolute Neutrophils 2.6 Absolute Lymphocytes 1.6 Absolute Monocytes 0.6 Absolute Eosinophils 0.2 Absolute Basophils 0.0 Sodium 144.5 Potassium 4.3 Chloride 104 Carbon Dioxide 27 Anion Gap 14 BUN 17 Creatinine 0.72 Est GFR ( Amer) > 60 Est GFR (Non-Af Amer) > 60 Glucose 137 H Calcium 8.9 Total Bilirubin 0.8 AST 43 ALT 44 Alkaline Phosphatase 158 H Ammonia 31.7 Total Protein 6.3 Albumin 3.1 L Impressions: Chest X-Ray 02/20/18 00:00 IMPRESSION: Cardiomegaly without CHF. Head CT 02/20/18 17:47 IMPRESSION: MILD CHRONIC MICROVASCULAR ISCHEMIA. NO ACUTE IMAGING FINDINGS IN THE BRAIN. EVIDENCE OF ACUTE STROKE: NO. Qualifiers - * PATIENT BEING DISCHARGED WITH ANY OF THE FOLLOWING DIAGNOSIS: No
[2018-02-23 15:24] VITALS: BP 130/58
== END 2018-02-23 15:40 | disposition home or self-care (01) | DRG 442 ==
LOC: ER 16:16 → EH 20:50 → 3N 02-21 00:42
PROVIDERS: ADMIT Internal Medicine; ATTEND Internal Medicine
DX: K72.90 Hepatic failure, unspecified without coma (principal); E72.20 Disorder of urea cycle metabolism, unspecified; E87.5 Hyperkalemia; K75.81 Nonalcoholic steatohepatitis (NASH); K74.69 Other cirrhosis of liver; E11.40 Type 2 diabetes mellitus with diabetic neuropathy, unspecified; I11.0 Hypertensive heart disease with heart failure; I50.9 Heart failure, unspecified; K21.9 Gastro-esophageal reflux disease without esophagitis; I25.10 Atherosclerotic heart disease of native coronary artery without angina pectoris; J45.909 Unspecified asthma, uncomplicated; G47.419 Narcolepsy without cataplexy; M54.2 Cervicalgia; E66.01 Morbid (severe) obesity due to excess calories; Z79.84 Long term (current) use of oral hypoglycemic drugs; Z79.4 Long term (current) use of insulin; Z79.899 Other long term (current) drug therapy
CPT/HCPCS: 36415; 70450; 71045; 80053; 80061; 81001; 82140; 82962; 83036; 84443; 85025; 93005; 93010; 99285; G8978-GP; G8979-GP; G8980-GP; J0610; J1650; J1815; J1940; J2405; J3490; J7030

== ENCOUNTER 2018-04-03 21:11 | Inpatient (IN) | payer MEDICARE ==
[2018-04-04] MEDS ORDERED: MORPHINE SULFATE 10 MG/ML INJ IV ONE (00:44)
[2018-04-04] MEDS ORDERED: FUROSEMIDE INJ/PF 40 MG/4 ML SDV IV ONE (00:44)
--- NOTE | 2018-04-04 00:45 | ER Document Report ---
ED General - General TRAVEL OUTSIDE OF THE [place] IN LAST 30 DAYS: No <CHRIS CARRERA - Last Filed: 04/04/18 07:18> <ANAHI WHITESIDE - Last Filed: 04/04/18 07:28> - General Chief Complaint: Swelling Stated Complaint: SWELLING Time Seen by Provider: 04/04/18 00:19 Notes: Patient is a 63-year-old male who comes emergency department for chief complaint of swelling of his scrotum, lower extremities, and somewhat over the abdomen progressing for the past 2 weeks, he states it has become so bad that he cannot ambulate anymore. He has a history of CHF and a history of cirrhosis , he is on Lasix 20 mg once daily, states he was taken off of his Spironolactone and placed on metolazone, he was taken off his lisinopril and placed on amlodipine. He denies chest pain, fever, abdominal pain, nausea or vomiting. He does report shortness of breath, states that he can barely walk across the room without becoming very short of breath. Past medical history includes CABG, diabetes, and GERD as well. He is also on chronic pain management. (CHRIS CARRERA) - Related Data Allergies/Adverse Reactions: No Known Allergies Allergy (Verified 02/20/18 17:40) Past Medical History - General Information source: Patient, Relative - Social History Smoking Status: Former Smoker Frequency of alcohol use: None Drug Abuse: None Lives with: Spouse/Significant other Family History: DM, Hypertension Patient has suicidal ideation: No Patient has homicidal ideation: No - Past Medical History Cardiac Medical History: Reports: Hx Congestive Heart Failure, Hx Coronary Artery Disease, Hx DVT, Hx Hypercholesterolemia, Hx Hypertension Denies: Hx Pulmonary Embolism Pulmonary Medical History: Reports: Hx Asthma Denies: Hx COPD, Hx Sleep Apnea Neurological Medical History: Denies: Hx Seizures Endocrine Medical History: Reports: Hx Diabetes Mellitus Type 1. Denies: Hx Hyperthyroidism, Hx Hypothyroidism Renal/ Medical History: Denies: Hx Peritoneal Dialysis GI Medical History: Reports: Hx Cirrhosis, Hx Gastroesophageal Reflux Disease, Hx Hepatitis Musculoskeletal Medical History: Reports Hx Arthritis - Osteoarthritis. Skin Medical History: Denies Hx Eczema, Denies Hx Psoriasis Psychiatric Medical History: Reports: Hx Depression Infectious Medical History: Reports: Hx Hepatitis Past Surgical History: Reports: Hx Appendectomy, Hx Cardiac Surgery - CABG X2, Hx Coronary Artery Bypass Graft, Hx Orthopedic Surgery - neck - Immunizations Immunizations up to date: Yes Hx Diphtheria, Pertussis, Tetanus Vaccination: No Hx Pneumococcal Vaccination: 06/22/15 <CHRIS CARRERA - Last Filed: 04/04/18 07:18> Review of Systems - Review of Systems Constitutional: No symptoms reported EENT: No symptoms reported Cardiovascular: See HPI Respiratory: See HPI Gastrointestinal: No symptoms reported Genitourinary: No symptoms reported Male Genitourinary: See HPI Musculoskeletal: See HPI Skin: No symptoms reported Hematologic/Lymphatic: No symptoms reported Neurological/Psychological: No symptoms reported <CHRIS CARRERA - Last Filed: 04/04/18 07:18> Physical Exam <CHRIS CARRERA - Last Filed: 04/04/18 07:18> <ANAHI WHITESIDE - Last Filed: 04/04/18 07:28> - Vital signs Vitals: Temp Pulse Resp BP Pulse Ox 97.8 F 64 16 148/62 H 95 04/03/18 21:19 04/03/18 21:19 04/03/18 21:19 04/03/18 21:19 04/03/18 21:19 - Notes Notes: GENERAL: Alert, interacts well. No acute distress. HEAD: Normocephalic, atraumatic. EYES: Pupils equal, round, and reactive to light. Extraocular movements intact. ENT: Oral mucosa moist, tongue midline. NECK: Full range of motion. Supple. Trachea midline. LUNGS: Clear breath sounds on both side except in the mid to lower lungs are some scant scattered rales. No tachypnea. HEART: Regular rate and rhythm. No murmur ABDOMEN: Abdominal distention without tenderness, abdomen is not rigid. Bowel sounds present. GENITOURINARY: Very swollen scrotum with generalized tenderness but no marked erythema or warmth, no severe tenderness. EXTREMITIES: Bilateral lower extremity edema with very tight skin and slight pitting bilaterally. BACK: no cervical, thoracic, lumbar midline tenderness. No saddle anesthesia, normal distal neurovascular exam. NEUROLOGICAL: Alert and oriented x3. Normal speech. [cranial nerves II through XII grossly intact]. PSYCH: Normal affect, normal mood. SKIN: Warm, dry, normal turgor. No rashes or lesions noted. (CHRIS CARRERA) Course - Laboratory Result Diagrams: 04/04/18 01:03 04/04/18 01:03 <CHRIS CARRERA - Last Filed: 04/04/18 07:18> - Laboratory Result Diagrams: 04/04/18 01:03 04/04/18 01:03 <ANAHI WHITESIDE - Last Filed: 04/04/18 07:28> - Re-evaluation Re-evalutation: Patient appears generally uncomfortable, he has a very swollen scrotum, he does have swelling of the lower extremities and abdomen. On auscultation the lungs I can hear faint scattered rales but he does not have significant tachypnea, no hypoxia, no signs of respiratory distress. He states that if he tries to walk across the room he becomes very short of breath however. Giving pain medicine and Lasix. Chest x-ray does not show any acute abnormality. EKG showing sinus rhythm at a rate of 72, QTc is prolonged at 500. Flattened T waves inferior but no T-wave inversions or ST segment changes in consecutive leads. No chest pain. CBC showing normocytic anemia, chemistry showing hyperglycemia without acidosis. Troponin is negative. Discussed with patient and . Because of patient's difficulty ambulating, increased swelling, and dyspnea on exertion will discuss with hospitalist for admission. They very much want this. Discussed with Dr. Whiteside. 04/04/18 04:35 Still pending call back from hospitalist Dr. Tsang. 04/04/[address] Tsang, hospitalist, patient will be admitted to telemetry observation for scrotal swelling, dyspnea on exertion. (CHRIS CARRERA) - Vital Signs Vital signs: Temp Pulse Resp BP Pulse Ox 97.8 F 64 12 148/86 H 99 04/04/18 07:00 04/03/18 21:19 04/04/18 06:03 04/04/18 06:03 04/04/18 06:03 - Laboratory Laboratory results interpreted by mi: 04/04/18 04/04/18 04/04/18 01:03 01:03 01:03 RBC 3.18 L Hgb 9.0 L Hct 27.2 L RDW 16.7 H Plt Count 129 L PT 15.6 H APTT 38.8 H Chloride 97 L Glucose 256 H Alkaline Phosphatase 213 H Albumin 3.2 L Discharge - Discharge Admitting Provider: Hospitalist Unit Admitted: Telemetry <CHRIS CARRERA - Last Filed: 04/04/18 07:18> - Discharge Admitting Provider: Sharan Unit Admitted: Telemetry <ANAHI WHITESIDE - Last Filed: 04/04/18 07:28> - Discharge Clinical Impression: Scrotal swelling, Dyspnea on exertion Condition: Stable Disposition: ADMITTED OBSERVATION
[2018-04-04 02:04] LABS: ABSOLUTE EOSINOPHILS # (AUTO) 0.1 10^3/uL (0.0-0.6); ABSOLUTE MONOCYTES (AUTO) 0.4 10^3/uL (0.1-1.4); ABSOLUTE NEUT (AUTO) 3.5 10^3/uL (1.7-8.2); BASOPHILS % (AUTO) 0.9 % (0-2); EOSINOPHILS % (AUTO) 1.7 % (0-6); HEMATOCRIT 27.2 % (37.9-51.0); LYMPHOCYTES % (AUTO) 19.7 % (13-45); MEAN CORPUSCULAR HEMOGLOBIN 28.2 pg (27.0-33.4); MEAN CORPUSCULAR VOLUME 85 fl (80-97); PLATELET COUNT 129 10^3/uL (150-450); RED BLOOD COUNT 3.18 10^6/uL (4.35-5.55); RED CELL DISTRIBUTION WIDTH 16.7 % (11.5-14.0); SEGMENTED NEUTROPHILS % (AUTO) 69.7 % (42-78); TOTAL CELLS COUNTED % (AUTO) 100 %
[2018-04-04 02:06] LABS: INTERNATIONAL RATION (INR) 1.18; PROTHROMBIN TIME 15.6 SEC (11.4-15.4)
[2018-04-04 02:07] LABS: PARTIAL THROMBOPLASTIN TIME 38.8 SEC (23.5-35.8)
[2018-04-04 02:21] LABS: ALANINE AMINOTRANSFERASE 35 U/L (21-72); ALBUMIN 3.2 g/dL (3.5-5.0); ALKALINE PHOSPHATASE 213 U/L (38-126); ANION GAP 12 (5-19); ASPARTATE AMINO TRANSFERASE 49 U/L (17-59); BILIRUBIN,DIRECT 0.4 mg/dL (0.0-0.4); BILIRUBIN,TOTAL 0.9 mg/dL (0.2-1.3); BLOOD UREA NITROGEN 14 mg/dL (7-20); CALCIUM 8.6 mg/dL (8.4-10.2); CARBON DIOXIDE 28 mmol/L (22-30); CHLORIDE 97 mmol/L (98-107); GLUCOSE 256 mg/dL (75-110); POTASSIUM 4.4 mmol/L (3.6-5.0); SODIUM 137.2 mmol/L (137-145); TOTAL PROTEIN 6.5 g/dL (6.3-8.2)
[2018-04-04 02:31] LABS: NT PRO BNP 835 pg/mL (5-900)
[2018-04-04 02:32] LABS: TROPONIN I < 0.012 ng/mL
--- NOTE | 2018-04-04 02:44 | RADIOLOGY REPORT (SQ) ---
Chest single view on 04/04/2018 at 2:17 AM CLINICAL INDICATION: Shortness of breath COMPARISON: 02/20/2018 FINDINGS: The patient is status post median sternotomy and CABG. Mild cardiomegaly is noted. Fusion hardware is noted in the lower cervical spine. The lungs are clear. Hilar and mediastinal contours are within normal limits. Pulmonary vascularity is within normal limits. IMPRESSION: Cardiomegaly with no acute pulmonary disease.
--- NOTE | 2018-04-04 07:47 | EKG REPORT ---
SEVERITY:- ABNORMAL ECG - SINUS RHYTHM BORDERLINE T ABNORMALITIES, INFERIOR LEADS BORDERLINE PROLONGED QT INTERVAL : Confirmed by: Adalid Leary MD 04-Apr-2018 07:45:59
[2018-04-04] MEDS ORDERED: ACETAMINOPHEN 325 MG TABLET PO PRN (08:50)
[2018-04-04] MEDS ORDERED: ALBUTEROL SULFATE 0.083% NEB 2.5 MG/3 ML AMPUL NEB PRN (08:50)
[2018-04-04] MEDS ORDERED: ALBUTEROL SULFATE HFA (90 MCG/PUFF) 8 GM MDI (1 MDI/ER DISP) IH PRN (09:03)
[2018-04-04] MEDS ORDERED: PROMETHAZINE HCL 25 MG TABLET PO PRN (09:12)
[2018-04-04] MEDS: INSULIN GLARGINE,HUM.REC.ANLOG 300 UNIT/3 ML INSULN.PEN SUBCUT SCH ×2 (10:46→21:14)
[2018-04-04] MEDS: ENOXAPARIN SODIUM INJ 40 MG/0.4 ML DISP.SYRIN SUBCUT SCH (10:47)
[2018-04-04] MEDS: PREGABALIN 100 MG CAPSULE PO SCH ×2 (10:48→19:01)
[2018-04-04] MEDS: ATENOLOL 50 MG TABLET PO SCH (10:48)
[2018-04-04] MEDS: MODAFINIL 100 MG TABLET PO SCH (10:48)
[2018-04-04] MEDS: ASPIRIN 81 MG TABLET, ENT COATED PO SCH (10:49)
[2018-04-04] MEDS: FUROSEMIDE INJ/PF 20 MG/2 ML SDV IV SCH ×2 (10:49→21:11)
[2018-04-04] MEDS: INSULIN LISPRO 100 UNIT/ML 3 ML VIAL SUBCUT SCH ×2 (11:07→16:49)
[2018-04-04] MEDS: ESCITALOPRAM OXALATE 10 MG TABLET PO SCH (12:08)
[2018-04-04] MEDS: METOLAZONE 5 MG TABLET PO SCH (12:12)
[2018-04-04] MEDS: METHADONE HCL 10 MG TABLET PO SCH ×2 (13:14→21:13)
[2018-04-04] MEDS: LACTULOSE SYRUP 20 GM/30 ML UDCUP PO SCH ×2 (13:18→19:01)
[2018-04-04] MEDS: HYDRALAZINE HCL 25 MG TABLET PO SCH ×2 (14:13→21:10)
--- NOTE | 2018-04-04 15:47 | PDOC H&P ---
History of Present Illness Admission Date/PCP: 04/04/18 05:46 BETHANIE PLUNKETT Patient complains of: Gen. body swelling, scrotal swelling and leg swelling. History of Present Illness: WINDY BERMAN is a 63 year old male wiithhx of DM2/HTN/Hyperlipidemia/DM neuropathy/CAD s.p CABG/Cirrhosis secondary to NAFLD/Asthma/GERD/Narcolepsy/ Constipation/Rhinitis/Fe. def. anemia/Vitamin D def/Depression, who was discharged from this hospital on 02/23/2018 where he was treated for hepatic encephalopathy/hyperkalemia/AMS. He was seen for transition of care on 2017 since pt claimed he could not afford the office visit co-pay for office visit within 1 week of discharge. We had increased his Lasix to 20 mg BID and added Metolazone 5 mg daily, but patient did not his Lasix dose and still continued on 20 mg daily. He came to ER complaining of worsening gen. body swelling, scrotal swelling and leg swelling. He was admitted for 48 hour observation for IV diuretics. Past Medical History Cardiac Medical History: Reports: Congestive Heart Failure, Coronary Artery Disease, DVT, Hyperlipidema, Hypertension Denies: Pulmonary Embolism Pulmonary Medical History: Reports: Asthma Denies: Chronic Obstructive Pulmonary Disease (COPD), Sleep Apnea Neurological Medical History: Denies: Seizures Endocrine Medical History: Reports: Diabetes Mellitus Type 1 Denies: Hyperthyroidism, Hypothyroidism GI Medical History: Reports: Cirrhosis, Gastroesophageal Reflux Disease, Hepatitis Musculoskeltal Medical History: Reports: Arthritis - Osteoarthritis. Skin Medical History: Denies: Eczema, Psoriasis Psychiatric Medical History: Reports: Depression Past Surgical History Past Surgical History: Reports: Appendectomy, Coronary Artery Bypass Graft, Orthopedic Surgery - neck Social History Lives with: Spouse/Significant other Smoking Status: Former Smoker Frequency of Alcohol Use: None Hx Recreational Drug Use: No Drugs: None Hx Prescription Drug Abuse: No - Advance Directive Resuscitation Status: Full Code Family History Family History: DM, Hypertension Parental Family History Reviewed: Yes Children Family History Reviewed: Yes Sibling(s) Family History Reviewed.: Yes Medication/Allergy Home Medications: Amlodipine Besylate [Norvasc 10 mg Tablet] 10 mg PO DAILY 04/04/18 Atenolol [Tenormin 100 mg Tablet] 100 mg PO QAM 04/04/18 Atorvastatin Calcium [Lipitor 20 mg Tablet] 20 mg PO QPM 04/04/18 Ergocalciferol (Vitamin D2) [Drisdol 50,000 unit (1.25MG) Capsule] 50,000 unit PO MO@0800 04/04/18 Escitalopram Oxalate [Lexapro] 20 mg PO QHS 04/04/18 Furosemide [Lasix 20 mg Tablet] 20 mg PO DAILY 04/04/18 Insulin Aspart [Novolog Flexpen] 10 unit SQ .ASDIR 04/04/18 Insulin Aspart [Novolog Flexpen] 30 unit SQ AC 04/04/18 Insulin Glargine,Hum.rec.anlog [Lantus Solostar] 65 mg SQ BID 04/04/18 Lactulose [Constulose 10 gm/15 mL Oral Solution] 30 ml PO QID 04/04/18 Metformin HCl [Glucophage] 1,000 mg PO BID 04/04/18 Methadone HCl [Dolophine 10 mg Tablet] 5 mg PO QHS 04/04/18 Methadone HCl [Dolophine 10 mg Tablet] 10 mg PO BID 04/04/18 Metolazone [Zaroxolyn 5 mg Tablet] 5 mg PO DAILY 04/04/18 Modafinil [Provigil] 200 mg PO DAILY 04/04/18 Allergies/Adverse Reactions: No Known Allergies Allergy (Verified 02/20/18 17:40) Review of Systems Constitutional: PRESENT: as per HPI Eyes: PRESENT: as per HPI Ears: PRESENT: as per HPI Nose, Mouth, and Throat: PRESENT: as per HPI Breasts: PRESENT: as per HPI Cardiovascular: PRESENT: as per HPI, dyspnea on exertion Respiratory: PRESENT: as per HPI Gastrointestinal: PRESENT: as per HPI Genitourinary: PRESENT: as per HPI Musculoskeletal: PRESENT: as per HPI Integumentary: PRESENT: as per HPI Neurological: PRESENT: as per HPI Psychiatric: PRESENT: as per HPI Endocrine: PRESENT: as per HPI Hematologic/Lymphatic: PRESENT: as per HPI Physical Exam Vital Signs: Temp Pulse Resp BP Pulse Ox 97.8 F 65 12 116/53 L 95 04/04/18 07:00 04/04/18 15:02 04/04/18 15:02 04/04/18 14:01 04/04/18 15:02 General appearance: PRESENT: no acute distress, morbidly obese, well-developed, well-nourished Head exam: PRESENT: atraumatic, normocephalic Eye exam: PRESENT: EOMI, PERRLA Ear exam: PRESENT: normal external ear exam, TM's normal bilaterally Mouth exam: PRESENT: neck supple, tongue midline Neck exam: PRESENT: full ROM Respiratory exam: PRESENT: decreased breath sounds, symmetrical Cardiovascular exam: PRESENT: +S1, +S2 Pulses: PRESENT: +2 pedal pulses bilateral GI/Abdominal exam: PRESENT: ascites, firm, normal bowel sounds, soft Rectal exam: PRESENT: deferred Extremities exam: PRESENT: full ROM Musculoskeletal exam: PRESENT: full ROM Neurological exam: PRESENT: alert, awake, oriented to person, oriented to place , oriented to time Psychiatric exam: PRESENT: normal mood Results Impressions: Chest X-Ray 04/04/18 00:43 IMPRESSION: Cardiomegaly with no acute pulmonary disease. Assessment & Plan - Diagnosis (1) Scrotal swelling Is this a current diagnosis for this admission?: Yes Plan: Gen. body swelling/Scrotal swelling- we will switch him to Lasix 20 mg BID IV; Metolazone 5 mg daily po; strict input/output chart; daily weight; monitor chemistries daily. D/C Amlodipine. (2) Diabetes mellitus type 2 in obese Is this a current diagnosis for this admission?: Yes Plan: Ct with accucheck QAC, QHS with slidding scale humalog insulin as per [facility] protocol; Metformin 65 iu BID subcut; Metformin 1000mg BID po; 1800 calorie ADA diet. (3) Hypertension Qualifiers: Hypertension type: essential hypertension Qualified Code(s): I10 - Essential (primary) hypertension Is this a current diagnosis for this admission?: Yes Plan: Ct with Atenolol 100 mg qd po; switch to Hydralazine 25 mg TID po; D/C Amlodipine due to worsening body swelling and leg swelling; 2 g sodium diet. (4) Hyperlipidemia Qualifiers: Hyperlipidemia type: unspecified Qualified Code(s): E78.5 - Hyperlipidemia , unspecified Is this a current diagnosis for this admission?: Yes Plan: Ct with Atorvastatin 20 mg qhs po; 200 mg cholesterol diet. (5) Diabetic neuropathy Is this a current diagnosis for this admission?: Yes Plan: Ct with Lyrica 100 mg BID po. (6) Cirrhosis Qualifiers: Hepatic cirrhosis type: other cirrhosis Qualified Code(s): K74.69 - Other cirrhosis of liver Is this a current diagnosis for this admission?: Yes Plan: Ct with Lactulose 30 mls q6h po; Metolazone 5 mg qd po; lasix 20 mg BID IV. (7) Asthma Qualifiers: Asthma severity: unspecified severity Asthma complication type: uncomplicated Qualified Code(s): J45.909 - Unspecified asthma, uncomplicated Is this a current diagnosis for this admission?: Yes Plan: Ct with Albuterol nebs 3mls q6h prn; Ventolin HFA- 2 puffs q6h prn. (8) Coronary artery disease Qualifiers: Coronary Disease-Associated Artery/Lesion type: [place] artery [place] vs. transplanted heart: [place] heart Associated angina: without angina Qualified Code(s): I25.10 - Atherosclerotic heart disease of [place] coronary artery without angina pectoris Is this a current diagnosis for this admission?: Yes Plan: Ct with Aspirin 81 mg qd po; NTG 0.4mg q 5minutes prn S/L x3. Cardiac diet. (9) Cervicalgia Is this a current diagnosis for this admission?: Yes Plan: Ct with oxycodone 5 mg q6h po prn; Methadone 10 mg TID prn po. (10) Reflux esophagitis Is this a current diagnosis for this admission?: Yes Plan: Ct with Prevacid 30 mg qd po since Nexium is not in our formulary; Promethazine 25 mg BID prn PO. (11) Narcolepsy Is this a current diagnosis for this admission?: Yes Plan: Ct with Provigil 200 mg qd po. (12) Depression Is this a current diagnosis for this admission?: Yes Plan: Ct with Lexapro 20 mg qd po. (13) Anemia of chronic disease Is this a current diagnosis for this admission?: Yes Plan: Ct with Ferrous sulfate 325 mg BID; monitor CBC daily. (14) DVT prophylaxis Is this a current diagnosis for this admission?: Yes Plan: Ct with Lovenox 40 mg daily subcut; SCD. - Time Time Spent: 30 to 50 Minutes Medications reviewed and adjusted accordingly: Yes Anticipated discharge: Home Within: within 48 hours
[2018-04-04] MEDS: OXYCODONE HCL IR 5 MG TABLET PO PRN (16:48)
[2018-04-04] MEDS: METFORMIN HCL 500 MG TABLET PO SCH (16:48)
[2018-04-04] MEDS: FERROUS SULFATE 325 MG TABLET PO SCH (19:02)
[2018-04-04] MEDS: ATORVASTATIN CALCIUM 20 MG TABLET PO SCH (21:09)
[2018-04-05] MEDS: LACTULOSE SYRUP 20 GM/30 ML UDCUP PO SCH ×4 (00:22→17:51)
[2018-04-05] MEDS: HYDRALAZINE HCL 25 MG TABLET PO SCH ×3 (06:22→22:19)
[2018-04-05] MEDS: LANSOPRAZOLE 30 MG TAB.RAP.DR PO SCH (06:22)
[2018-04-05] MEDS: METHADONE HCL 10 MG TABLET PO SCH ×3 (06:23→22:24)
[2018-04-05 06:46] LABS: HEMATOCRIT 25.8 % (37.9-51.0); HEMOGLOBIN 8.6 g/dL (13.5-17.0); MEAN CORPUSCULAR HEMOGLOBIN 28.1 pg (27.0-33.4); MEAN CORPUSCULAR HGB CONC 33.3 g/dL (32.0-36.0); MEAN CORPUSCULAR VOLUME 84 fl (80-97); PLATELET COUNT 123 10^3/uL (150-450); RED BLOOD COUNT 3.06 10^6/uL (4.35-5.55); RED CELL DISTRIBUTION WIDTH 16.8 % (11.5-14.0); WHITE BLOOD COUNT 4.6 10^3/uL (4.0-10.5)
[2018-04-05 07:11] LABS: ANION GAP 12 (5-19); BLOOD UREA NITROGEN 16 mg/dL (7-20); CALCIUM 8.5 mg/dL (8.4-10.2); CARBON DIOXIDE 31 mmol/L (22-30); CHLORIDE 98 mmol/L (98-107); GLUCOSE 139 mg/dL (75-110); POTASSIUM 4.4 mmol/L (3.6-5.0); SODIUM 140.5 mmol/L (137-145)
[2018-04-05] MEDS: METFORMIN HCL 500 MG TABLET PO SCH ×2 (07:54→16:28)
[2018-04-05] MEDS: INSULIN LISPRO 100 UNIT/ML 3 ML VIAL SUBCUT SCH ×3 (07:54→16:28)
[2018-04-05] MEDS: OXYCODONE HCL IR 5 MG TABLET PO PRN ×2 (07:56→17:53)
[2018-04-05] MEDS: METOLAZONE 5 MG TABLET PO SCH (10:27)
[2018-04-05] MEDS: INSULIN GLARGINE,HUM.REC.ANLOG 300 UNIT/3 ML INSULN.PEN SUBCUT SCH ×2 (10:28→22:19)
[2018-04-05] MEDS: FUROSEMIDE INJ/PF 20 MG/2 ML SDV IV SCH ×2 (10:31→22:22)
[2018-04-05] MEDS: ENOXAPARIN SODIUM INJ 40 MG/0.4 ML DISP.SYRIN SUBCUT SCH (10:33)
[2018-04-05] MEDS: PREGABALIN 100 MG CAPSULE PO SCH ×2 (10:33→17:51)
[2018-04-05] MEDS: ESCITALOPRAM OXALATE 10 MG TABLET PO SCH (10:33)
[2018-04-05] MEDS: MODAFINIL 100 MG TABLET PO SCH (10:33)
[2018-04-05] MEDS: ASPIRIN 81 MG TABLET, ENT COATED PO SCH (10:33)
[2018-04-05] MEDS: FERROUS SULFATE 325 MG TABLET PO SCH ×2 (10:34→17:51)
[2018-04-05] MEDS: ATENOLOL 50 MG TABLET PO SCH (12:07)
--- NOTE | 2018-04-05 17:15 | PDOC PROGRESS REPORT ---
Subjective Progress Note for:: 04/05/18 Subjective:: He has been able to get up and move around and he refused PT/OT. The scrotal US was not done today for unclear reason.The scrotal swelling has decreased and he is diuresing well. Reason For Visit: GENERAL BODY SWELLING Physical Exam Vital Signs: Temp Pulse Resp BP Pulse Ox 98.4 F 70 16 130/56 H 95 04/05/18 11:00 04/05/18 16:19 04/05/18 16:19 04/05/18 11:00 04/05/18 16:19 Intake & Output 04/04/18 04/05/18 04/06/18 06:59 06:59 06:59 Intake Total 835 Balance 835 Weight 116.8 kg General appearance: PRESENT: no acute distress, cooperative, morbidly obese, well-nourished Head exam: PRESENT: atraumatic, normocephalic Eye exam: PRESENT: EOMI, PERRLA Ear exam: PRESENT: normal external ear exam, TM's normal bilaterally Mouth exam: PRESENT: neck supple, tongue midline Respiratory exam: PRESENT: decreased breath sounds, symmetrical Cardiovascular exam: PRESENT: +S1, +S2 Pulses: PRESENT: +1 pedal pulses bilateral Additonal comments: Swollen scrotum, tender, can easily be elevated and no relief or aggravation of pain. Rectal exam: PRESENT: deferred Extremities exam: PRESENT: full ROM Musculoskeletal exam: PRESENT: full ROM Neurological exam: PRESENT: alert, awake, oriented to person, oriented to place , oriented to time Psychiatric exam: PRESENT: normal mood Results Laboratory Results: 04/05/18 05:23 04/05/18 05:23 04/05/18 04/05/18 05:23 05:23 WBC 4.6 RBC 3.06 L Hgb 8.6 L Hct 25.8 L MCV 84 MCH 28.1 MCHC 33.3 RDW 16.8 H Plt Count 123 L Sodium 140.5 Potassium 4.4 Chloride 98 Carbon Dioxide 31 H Anion Gap 12 BUN 16 Creatinine 0.86 Est GFR ( Amer) > 60 Est GFR (Non-Af Amer) > 60 Glucose 139 H Calcium 8.5 Impressions: Chest X-Ray 04/04/18 00:43 IMPRESSION: Cardiomegaly with no acute pulmonary disease. Assessment & Plan - Diagnosis (1) Scrotal swelling Is this a current diagnosis for this admission?: Yes Plan: Gen. body swelling/Scrotal swelling- we will switch him to Lasix 20 mg BID IV; Metolazone 5 mg daily po; strict input/output chart; daily weight; monitor chemistries daily. D/C Amlodipine.F/u scrotal US. (2) Diabetes mellitus type 2 in obese Is this a current diagnosis for this admission?: Yes Plan: Ct with accucheck QAC, QHS with slidding scale humalog insulin as per [facility] protocol; Metformin 65 iu BID subcut; Metformin 1000mg BID po; 1800 calorie ADA diet. (3) Hypertension Qualifiers: Hypertension type: essential hypertension Qualified Code(s): I10 - Essential (primary) hypertension Is this a current diagnosis for this admission?: Yes Plan: Ct with Atenolol 100 mg qd po; switch to Hydralazine 25 mg TID po; D/C Amlodipine due to worsening body swelling and leg swelling; 2 g sodium diet. (4) Hyperlipidemia Qualifiers: Hyperlipidemia type: unspecified Qualified Code(s): E78.5 - Hyperlipidemia , unspecified Is this a current diagnosis for this admission?: Yes Plan: Ct with Atorvastatin 20 mg qhs po; 200 mg cholesterol diet. (5) Diabetic neuropathy Is this a current diagnosis for this admission?: Yes Plan: Ct with Lyrica 100 mg BID po. (6) Cirrhosis Qualifiers: Hepatic cirrhosis type: other cirrhosis Qualified Code(s): K74.69 - Other cirrhosis of liver Is this a current diagnosis for this admission?: Yes Plan: Ct with Lactulose 30 mls q6h po; Metolazone 5 mg qd po; lasix 20 mg BID IV. (7) Asthma Qualifiers: Asthma severity: unspecified severity Asthma complication type: uncomplicated Qualified Code(s): J45.909 - Unspecified asthma, uncomplicated Is this a current diagnosis for this admission?: Yes Plan: Ct with Albuterol nebs 3mls q6h prn; Ventolin HFA- 2 puffs q6h prn. (8) Coronary artery disease Qualifiers: Coronary Disease-Associated Artery/Lesion type: [place] artery [place] vs. transplanted heart: [place] heart Associated angina: without angina Qualified Code(s): I25.10 - Atherosclerotic heart disease of [place] coronary artery without angina pectoris Is this a current diagnosis for this admission?: Yes Plan: Ct with Aspirin 81 mg qd po; NTG 0.4mg q 5minutes prn S/L x3. Cardiac diet. (9) Cervicalgia Is this a current diagnosis for this admission?: Yes Plan: Ct with oxycodone 5 mg q6h po prn; Methadone 10 mg TID prn po. (10) Reflux esophagitis Is this a current diagnosis for this admission?: Yes Plan: Ct with Prevacid 30 mg qd po since Nexium is not in our formulary; Promethazine 25 mg BID prn PO. (11) Narcolepsy Is this a current diagnosis for this admission?: Yes Plan: Ct with Provigil 200 mg qd po. (12) Depression Is this a current diagnosis for this admission?: Yes Plan: Ct with Lexapro 20 mg qd po. (13) Anemia of chronic disease Is this a current diagnosis for this admission?: Yes Plan: Ct with Ferrous sulfate 325 mg BID; monitor CBC daily. (14) DVT prophylaxis Is this a current diagnosis for this admission?: Yes Plan: Ct with Lovenox 40 mg daily subcut; SCD.
--- NOTE | 2018-04-05 18:53 | RADIOLOGY REPORT (SQ) ---
EXAM DESCRIPTION: U/S SCROTUM W/O DOPPLER COMPLETED DATE/TIME: 04/05/2018 6:42 pm REASON FOR STUDY: Edema D63.8 ANEMIA IN OTHER CHRONIC DISEASES CLASSIFIED ELSEWHERE COMPARISON: 07/28/2016 TECHNIQUE: Static and realtime vanessa scale imaging of the scrotum and testes. Selected color Doppler and spectral images recorded to document blood flow. LIMITATIONS: None. FINDINGS: RIGHT: TESTICLE: Normal size. Normal echotexture. Normal blood flow. No mass. EPIDIDYMIS: Inflamed HYDROCELE OR VARICOCELE: Hydrocele HERNIA OR EXTRA-TESTICULAR MASS: No. OTHER: Generalize scrotal thickening. LEFT: TESTICLE: Normal size. Normal echotexture. Normal blood flow. No mass. EPIDIDYMIS: Inflamed HYDROCELE OR VARICOCELE: Hydrocele HERNIA OR EXTRA-TESTICULAR MASS: No. OTHER: Generalized scrotal wall thickening. IMPRESSION: No testicular mass or torsion. Epididymitis. Bilateral hydroceles. Generalized scrota l wall thickening. TECHNICAL DOCUMENTATION: JOB ID: [id number] [employer]- All Rights Reserved Reading location - IP/workstation name: [email or web address]
[2018-04-05] MEDS: ATORVASTATIN CALCIUM 20 MG TABLET PO SCH (22:23)
[2018-04-06] MEDS: LACTULOSE SYRUP 20 GM/30 ML UDCUP PO SCH ×4 (00:25→17:58)
[2018-04-06 05:18] LABS: HEMATOCRIT 26.5 % (37.9-51.0); HEMOGLOBIN 8.6 g/dL (13.5-17.0); MEAN CORPUSCULAR HEMOGLOBIN 27.7 pg (27.0-33.4); MEAN CORPUSCULAR HGB CONC 32.4 g/dL (32.0-36.0); MEAN CORPUSCULAR VOLUME 86 fl (80-97); PLATELET COUNT 121 10^3/uL (150-450); RED BLOOD COUNT 3.09 10^6/uL (4.35-5.55); WHITE BLOOD COUNT 5.2 10^3/uL (4.0-10.5)
[2018-04-06 05:43] LABS: ANION GAP 14 (5-19); BLOOD UREA NITROGEN 17 mg/dL (7-20); CALCIUM 8.7 mg/dL (8.4-10.2); CARBON DIOXIDE 30 mmol/L (22-30); CHLORIDE 96 mmol/L (98-107); GLUCOSE 124 mg/dL (75-110); POTASSIUM 4.2 mmol/L (3.6-5.0); SODIUM 139.5 mmol/L (137-145)
[2018-04-06] MEDS: HYDRALAZINE HCL 25 MG TABLET PO SCH ×3 (06:27→22:48)
[2018-04-06] MEDS: LANSOPRAZOLE 30 MG TAB.RAP.DR PO SCH (06:27)
[2018-04-06] MEDS: METHADONE HCL 10 MG TABLET PO SCH ×3 (06:28→22:49)
[2018-04-06] MEDS: METFORMIN HCL 500 MG TABLET PO SCH ×2 (08:54→17:04)
[2018-04-06] MEDS: FERROUS SULFATE 325 MG TABLET PO SCH ×2 (08:54→17:58)
[2018-04-06] MEDS: INSULIN LISPRO 100 UNIT/ML 3 ML VIAL SUBCUT SCH ×3 (09:49→17:03)
[2018-04-06] MEDS: PREGABALIN 100 MG CAPSULE PO SCH ×2 (09:54→17:58)
[2018-04-06] MEDS: MODAFINIL 100 MG TABLET PO SCH (09:55)
[2018-04-06] MEDS: ESCITALOPRAM OXALATE 10 MG TABLET PO SCH (09:55)
[2018-04-06] MEDS: METOLAZONE 5 MG TABLET PO SCH (09:57)
[2018-04-06] MEDS: ASPIRIN 81 MG TABLET, ENT COATED PO SCH (09:57)
[2018-04-06] MEDS: ATENOLOL 50 MG TABLET PO SCH (09:58)
[2018-04-06] MEDS: ENOXAPARIN SODIUM INJ 40 MG/0.4 ML DISP.SYRIN SUBCUT SCH (09:59)
[2018-04-06] MEDS: FUROSEMIDE INJ/PF 20 MG/2 ML SDV IV SCH ×2 (10:03→22:51)
[2018-04-06] MEDS: INSULIN GLARGINE,HUM.REC.ANLOG 300 UNIT/3 ML INSULN.PEN SUBCUT SCH ×2 (10:22→22:47)
[2018-04-06] MEDS: PIPERACILLIN SODIUM/TAZOBACTAM 3.375 GM in NORMAL SALINE 100 ML IV SCH ×3 (10:29→22:47)
--- NOTE | 2018-04-06 12:38 | PDOC CONSULTATION ---
Consultation Consult Date: 04/06/18 History of Present Illness Admission Date/PCP: 04/04/18 05:46 BETHANIE PLUNKETT History of Present Illness: WINDY BERMAN is a 63 year old male Past Medical History Cardiac Medical History: Reports: Congestive Heart Failure, Coronary Artery Disease, DVT, Hyperlipidema, Hypertension Denies: Pulmonary Embolism Pulmonary Medical History: Reports: Asthma Denies: Chronic Obstructive Pulmonary Disease (COPD), Sleep Apnea Neurological Medical History: Denies: Seizures Endocrine Medical History: Reports: Diabetes Mellitus Type 1 Denies: Hyperthyroidism, Hypothyroidism GI Medical History: Reports: Cirrhosis, Gastroesophageal Reflux Disease, Hepatitis Musculoskeltal Medical History: Reports: Arthritis - Osteoarthritis. Skin Medical History: Denies: Eczema, Psoriasis Psychiatric Medical History: Reports: Depression Past Surgical History Past Surgical History: Reports: Appendectomy, Coronary Artery Bypass Graft, Orthopedic Surgery - neck Social History Lives with: Spouse/Significant other Smoking Status: Former Smoker Frequency of Alcohol Use: None Hx Recreational Drug Use: No Drugs: None Hx Prescription Drug Abuse: No - Advance Directive Resuscitation Status: Full Code Family History Family History: DM, Hypertension Parental Family History Reviewed: No Children Family History Reviewed: No Sibling(s) Family History Reviewed.: No Medication/Allergy Home Medications: Amlodipine Besylate [Norvasc 10 mg Tablet] 10 mg PO DAILY 04/04/18 Atenolol [Tenormin 100 mg Tablet] 100 mg PO QAM 04/04/18 Atorvastatin Calcium [Lipitor 20 mg Tablet] 20 mg PO QPM 04/04/18 Ergocalciferol (Vitamin D2) [Drisdol 50,000 unit (1.25MG) Capsule] 50,000 unit PO MO@0800 04/04/18 Escitalopram Oxalate [Lexapro] 20 mg PO QHS 04/04/18 Furosemide [Lasix 20 mg Tablet] 20 mg PO DAILY 04/04/18 Insulin Aspart [Novolog Flexpen] 10 unit SQ .ASDIR 04/04/18 Insulin Aspart [Novolog Flexpen] 30 unit SQ AC 04/04/18 Insulin Glargine,Hum.rec.anlog [Lantus Solostar] 65 mg SQ BID 04/04/18 Lactulose [Constulose 10 gm/15 mL Oral Solution] 30 ml PO QID 04/04/18 Metformin HCl [Glucophage] 1,000 mg PO BID 04/04/18 Methadone HCl [Dolophine 10 mg Tablet] 5 mg PO QHS 04/04/18 Methadone HCl [Dolophine 10 mg Tablet] 10 mg PO BID 04/04/18 Metolazone [Zaroxolyn 5 mg Tablet] 5 mg PO DAILY 04/04/18 Modafinil [Provigil] 200 mg PO DAILY 04/04/18 Allergies/Adverse Reactions: No Known Allergies Allergy (Verified 02/20/18 17:40) Physical Exam Vital Signs: Temp Pulse Resp BP Pulse Ox 98.4 F 74 20 145/67 H 98 04/06/18 02:59 04/06/18 07:00 04/06/18 02:59 04/06/18 02:59 04/06/18 02:59 Intake & Output 04/05/18 04/06/18 04/07/18 06:59 06:59 06:59 Intake Total 1735 100 Balance 1735 100 Weight 116.8 kg 120 kg GI/Abdominal exam: PRESENT: ascites - marked abdominal distension Gentrourinary exam: PRESENT: scrotal swelling - thickened scrotum, testes non- palpable due to marked edema., testicular tenderness - scrotal tenderness Results Laboratory Results: 04/06/18 04:57 04/06/18 04:57 04/06/18 04/06/18 04:57 04:57 WBC 5.2 RBC 3.09 L Hgb 8.6 L Hct 26.5 L MCV 86 MCH 27.7 MCHC 32.4 RDW 17.0 H Plt Count 121 L Sodium 139.5 Potassium 4.2 Chloride 96 L Carbon Dioxide 30 Anion Gap 14 BUN 17 Creatinine 0.96 Est GFR ( Amer) > 60 Est GFR (Non-Af Amer) > 60 Glucose 124 H Calcium 8.7 Impressions: Scrotum Ultrasound 04/04/18 00:00 IMPRESSION: No testicular mass or torsion. Epididymitis. Bilateral hydroceles. Generalized scrotal wall thickening. Chest X-Ray 04/04/18 00:43 IMPRESSION: Cardiomegaly with no acute pulmonary disease. Assessment & Plan - Diagnosis (1) Scrotal swelling Is this a current diagnosis for this admission?: Yes Plan: 1. Elevate scrotum 2. Treat for epididymitis 3. Bladder scan to check for urinary retention
--- NOTE | 2018-04-06 16:36 | PDOC PROGRESS REPORT ---
Subjective Progress Note for:: 04/06/18 Subjective:: He had scrotal US that showed epididymitis and bilateral hydrocele with scrotal wall thickening, so we added IV Zosyn and got urology consult and we appreciate the input of Dr Puentes in the management of this pt. We will change him to inpatient status due to need for IV antibiotics due to the new diagnosis. Reason For Visit: GENERAL BODY SWELLING WITH NEED FOR IV ANTIBIOTICS Physical Exam Vital Signs: Temp Pulse Resp BP Pulse Ox 98.5 F 69 16 139/58 H 98 04/06/18 12:31 04/06/18 14:00 04/06/18 12:31 04/06/18 12:31 04/06/18 12:31 General appearance: PRESENT: no acute distress, cooperative, morbidly obese, well-developed, well-nourished Head exam: PRESENT: atraumatic, normocephalic Eye exam: PRESENT: EOMI, PERRLA Ear exam: PRESENT: normal external ear exam, TM's normal bilaterally Mouth exam: PRESENT: neck supple, tongue midline Neck exam: PRESENT: full ROM Respiratory exam: PRESENT: clear to auscultation jhonatan, symmetrical Cardiovascular exam: PRESENT: +S1, +S2 Pulses: PRESENT: +2 pedal pulses bilateral GI/Abdominal exam: PRESENT: normal bowel sounds, soft Rectal exam: PRESENT: deferred Gentrourinary exam: PRESENT: scrotal swelling Musculoskeletal exam: PRESENT: full ROM Neurological exam: PRESENT: alert, awake, oriented to person, oriented to place , oriented to time Psychiatric exam: PRESENT: normal mood Results Impressions: Scrotum Ultrasound 04/04/18 00:00 IMPRESSION: No testicular mass or torsion. Epididymitis. Bilateral hydroceles. Generalized scrotal wall thickening. Chest X-Ray 04/04/18 00:43 IMPRESSION: Cardiomegaly with no acute pulmonary disease. Assessment & Plan - Diagnosis (1) Epididymitis Is this a current diagnosis for this admission?: Yes Plan: We will put him on Zosyn 3.375 mg q6h IV; elevate the scrotum. F/u urologist, Dr Puentes. (2) Scrotal swelling Is this a current diagnosis for this admission?: Yes Plan: Gen. body swelling/Scrotal swelling- we will switch him to Lasix 20 mg BID IV; Metolazone 5 mg daily po; strict input/output chart; daily weight; monitor chemistries daily. D/C Amlodipine. (3) Diabetes mellitus type 2 in obese Is this a current diagnosis for this admission?: Yes Plan: Ct with accucheck QAC, QHS with slidding scale humalog insulin as per [facility] protocol; Metformin 65 iu BID subcut; Metformin 1000mg BID po; 1800 calorie ADA diet. (4) Hypertension Qualifiers: Hypertension type: essential hypertension Qualified Code(s): I10 - Essential (primary) hypertension Is this a current diagnosis for this admission?: Yes Plan: Ct with Atenolol 100 mg qd po; switch to Hydralazine 25 mg TID po; D/C Amlodipine due to worsening body swelling and leg swelling; 2 g sodium diet. (5) Hyperlipidemia Qualifiers: Hyperlipidemia type: unspecified Qualified Code(s): E78.5 - Hyperlipidemia , unspecified Is this a current diagnosis for this admission?: Yes Plan: Ct with Atorvastatin 20 mg qhs po; 200 mg cholesterol diet. (6) Diabetic neuropathy Is this a current diagnosis for this admission?: Yes Plan: Ct with Lyrica 100 mg BID po. (7) Cirrhosis Qualifiers: Hepatic cirrhosis type: other cirrhosis Qualified Code(s): K74.69 - Other cirrhosis of liver Is this a current diagnosis for this admission?: Yes Plan: Ct with Lactulose 30 mls q6h po; Metolazone 5 mg qd po; lasix 20 mg BID IV. (8) Asthma Qualifiers: Asthma severity: unspecified severity Asthma complication type: uncomplicated Qualified Code(s): J45.909 - Unspecified asthma, uncomplicated Is this a current diagnosis for this admission?: Yes Plan: Ct with Albuterol nebs 3mls q6h prn; Ventolin HFA- 2 puffs q6h prn. (9) Coronary artery disease Qualifiers: Coronary Disease-Associated Artery/Lesion type: [place] artery [place] vs. transplanted heart: [place] heart Associated angina: without angina Qualified Code(s): I25.10 - Atherosclerotic heart disease of [place] coronary artery without angina pectoris Is this a current diagnosis for this admission?: Yes Plan: Ct with Aspirin 81 mg qd po; NTG 0.4mg q 5minutes prn S/L x3. Cardiac diet. (10) Cervicalgia Is this a current diagnosis for this admission?: Yes Plan: Ct with oxycodone 5 mg q6h po prn; Methadone 10 mg TID prn po. (11) Reflux esophagitis Is this a current diagnosis for this admission?: Yes Plan: Ct with Prevacid 30 mg qd po since Nexium is not in our formulary; Promethazine 25 mg BID prn PO. (12) Narcolepsy Is this a current diagnosis for this admission?: Yes Plan: Ct with Provigil 200 mg qd po. (13) Depression Is this a current diagnosis for this admission?: Yes Plan: Ct with Lexapro 20 mg qd po. (14) Anemia of chronic disease Is this a current diagnosis for this admission?: Yes Plan: Ct with Ferrous sulfate 325 mg BID; monitor CBC daily. (15) DVT prophylaxis Is this a current diagnosis for this admission?: Yes Plan: Ct with Lovenox 40 mg daily subcut; SCD.
[2018-04-06 17:26] LABS: HEMATOCRIT 27.1 % (37.9-51.0); HEMOGLOBIN 8.7 g/dL (13.5-17.0); MEAN CORPUSCULAR HEMOGLOBIN 27.2 pg (27.0-33.4); MEAN CORPUSCULAR HGB CONC 32.3 g/dL (32.0-36.0); MEAN CORPUSCULAR VOLUME 84 fl (80-97); RED BLOOD COUNT 3.22 10^6/uL (4.35-5.55); RED CELL DISTRIBUTION WIDTH 16.8 % (11.5-14.0); WHITE BLOOD COUNT 5.7 10^3/uL (4.0-10.5)
[2018-04-06 17:41] LABS: PLATELET COUNT 117 10^3/uL (150-450)
[2018-04-06] MEDS: DOCUSATE SODIUM 100 MG CAPSULE PO SCH (17:58)
[2018-04-06] MEDS: ATORVASTATIN CALCIUM 20 MG TABLET PO SCH (22:52)
[2018-04-07] MEDS: LACTULOSE SYRUP 20 GM/30 ML UDCUP PO SCH ×4 (01:48→17:07)
[2018-04-07] MEDS: PIPERACILLIN SODIUM/TAZOBACTAM 3.375 GM in NORMAL SALINE 100 ML IV SCH ×4 (03:55→21:10)
[2018-04-07 05:41] LABS: ALANINE AMINOTRANSFERASE 30 U/L (21-72); ALBUMIN 3.1 g/dL (3.5-5.0); ALKALINE PHOSPHATASE 176 U/L (38-126); ANION GAP 14 (5-19); ASPARTATE AMINO TRANSFERASE 39 U/L (17-59); BILIRUBIN,DIRECT 0.4 mg/dL (0.0-0.4); BILIRUBIN,TOTAL 0.7 mg/dL (0.2-1.3); BLOOD UREA NITROGEN 19 mg/dL (7-20); CALCIUM 8.5 mg/dL (8.4-10.2); CARBON DIOXIDE 29 mmol/L (22-30); CHLORIDE 94 mmol/L (98-107); GLUCOSE 163 mg/dL (75-110); POTASSIUM 3.8 mmol/L (3.6-5.0); SODIUM 136.9 mmol/L (137-145); TOTAL PROTEIN 6.3 g/dL (6.3-8.2)
[2018-04-07] MEDS: METHADONE HCL 10 MG TABLET PO SCH ×3 (06:43→21:09)
[2018-04-07] MEDS: LANSOPRAZOLE 30 MG TAB.RAP.DR PO SCH (06:43)
[2018-04-07] MEDS: HYDRALAZINE HCL 25 MG TABLET PO SCH ×3 (06:43→22:47)
[2018-04-07] MEDS: METFORMIN HCL 500 MG TABLET PO SCH ×2 (08:43→17:07)
[2018-04-07] MEDS: FERROUS SULFATE 325 MG TABLET PO SCH ×2 (08:43→17:07)
[2018-04-07] MEDS: INSULIN LISPRO 100 UNIT/ML 3 ML VIAL SUBCUT SCH ×3 (08:45→16:52)
[2018-04-07] MEDS: ATENOLOL 50 MG TABLET PO SCH (09:19)
[2018-04-07] MEDS: DOCUSATE SODIUM 100 MG CAPSULE PO SCH ×2 (09:19→17:07)
[2018-04-07] MEDS: PREGABALIN 100 MG CAPSULE PO SCH ×2 (09:19→17:07)
[2018-04-07] MEDS: ASPIRIN 81 MG TABLET, ENT COATED PO SCH (09:19)
[2018-04-07] MEDS: METOLAZONE 5 MG TABLET PO SCH (09:19)
[2018-04-07] MEDS: MODAFINIL 100 MG TABLET PO SCH (09:21)
[2018-04-07] MEDS: ESCITALOPRAM OXALATE 10 MG TABLET PO SCH (09:22)
[2018-04-07] MEDS: ENOXAPARIN SODIUM INJ 40 MG/0.4 ML DISP.SYRIN SUBCUT SCH (09:23)
[2018-04-07] MEDS: INSULIN GLARGINE,HUM.REC.ANLOG 300 UNIT/3 ML INSULN.PEN SUBCUT SCH ×2 (11:04→22:47)
[2018-04-07] MEDS: FUROSEMIDE INJ/PF 20 MG/2 ML SDV IV SCH ×2 (11:05→21:08)
--- NOTE | 2018-04-07 15:33 | PDOC PROGRESS REPORT ---
Subjective Progress Note for:: 04/07/18 Subjective:: No new complaints and the scrotal swelling is decreased a bit. Discussed his care with pt and his and both are in agreement . We will keep pt over the weekend for IV antibiotics and hospitalists will cover for the weekend. Reason For Visit: GENERAL BODY SWELLING WITH NEED FOR IV ANTIBIOTICS Physical Exam Vital Signs: Temp Pulse Resp BP Pulse Ox 98.1 F 68 19 145/64 H 98 04/07/18 11:41 04/07/18 11:41 04/07/18 11:41 04/07/18 11:41 04/07/18 11:41 Intake & Output 04/06/18 04/07/18 04/08/18 06:59 06:59 06:59 Intake Total 200 200 Balance 200 200 Weight 123 kg General appearance: PRESENT: no acute distress, cooperative, morbidly obese Head exam: PRESENT: atraumatic, normocephalic Eye exam: PRESENT: EOMI, PERRLA Ear exam: PRESENT: normal external ear exam, TM's normal bilaterally Mouth exam: PRESENT: neck supple Neck exam: PRESENT: full ROM Respiratory exam: PRESENT: decreased breath sounds, symmetrical Cardiovascular exam: PRESENT: +S1, +S2 Pulses: PRESENT: +2 pedal pulses bilateral GI/Abdominal exam: PRESENT: normal bowel sounds, soft Rectal exam: PRESENT: deferred Gentrourinary exam: PRESENT: scrotal swelling Neurological exam: PRESENT: alert, awake, oriented to person, oriented to place , oriented to time Psychiatric exam: PRESENT: normal mood Results Laboratory Results: 04/07/18 03:49 04/07/18 03:49 Sodium 136.9 L Potassium 3.8 Chloride 94 L Carbon Dioxide 29 Anion Gap 14 BUN 19 Creatinine 1.00 Est GFR ( Amer) > 60 Est GFR (Non-Af Amer) > 60 Glucose 163 H Calcium 8.5 Total Bilirubin 0.7 AST 39 ALT 30 Alkaline Phosphatase 176 H Total Protein 6.3 Albumin 3.1 L Impressions: Scrotum Ultrasound 04/04/18 00:00 IMPRESSION: No testicular mass or torsion. Epididymitis. Bilateral hydroceles. Generalized scrotal wall thickening. Chest X-Ray 04/04/18 00:43 IMPRESSION: Cardiomegaly with no acute pulmonary disease. Assessment & Plan - Diagnosis (1) Epididymitis Is this a current diagnosis for this admission?: Yes Plan: We will put him on Zosyn 3.375 mg q6h IV; elevate the scrotum. F/u urologist, Dr Puentes. (2) Scrotal swelling Is this a current diagnosis for this admission?: Yes Plan: Gen. body swelling/Scrotal swelling- we will switch him to Lasix 20 mg BID IV; Metolazone 5 mg daily po; strict input/output chart; daily weight; monitor chemistries daily. D/C Amlodipine. (3) Diabetes mellitus type 2 in obese Is this a current diagnosis for this admission?: Yes Plan: Ct with accucheck QAC, QHS with slidding scale humalog insulin as per [facility] protocol; Metformin 65 iu BID subcut; Metformin 1000mg BID po; 1800 calorie ADA diet. (4) Hypertension Qualifiers: Hypertension type: essential hypertension Qualified Code(s): I10 - Essential (primary) hypertension Is this a current diagnosis for this admission?: Yes Plan: Ct with Atenolol 100 mg qd po; switch to Hydralazine 25 mg TID po; D/C Amlodipine due to worsening body swelling and leg swelling; 2 g sodium diet. (5) Hyperlipidemia Qualifiers: Hyperlipidemia type: unspecified Qualified Code(s): E78.5 - Hyperlipidemia , unspecified Is this a current diagnosis for this admission?: Yes Plan: Ct with Atorvastatin 20 mg qhs po; 200 mg cholesterol diet. (6) Diabetic neuropathy Is this a current diagnosis for this admission?: Yes Plan: Ct with Lyrica 100 mg BID po. (7) Cirrhosis Qualifiers: Hepatic cirrhosis type: other cirrhosis Qualified Code(s): K74.69 - Other cirrhosis of liver Is this a current diagnosis for this admission?: Yes Plan: Ct with Lactulose 30 mls q6h po; Metolazone 5 mg qd po; lasix 20 mg BID IV. (8) Asthma Qualifiers: Asthma severity: unspecified severity Asthma complication type: uncomplicated Qualified Code(s): J45.909 - Unspecified asthma, uncomplicated Is this a current diagnosis for this admission?: Yes Plan: Ct with Albuterol nebs 3mls q6h prn; Ventolin HFA- 2 puffs q6h prn. (9) Coronary artery disease Qualifiers: Coronary Disease-Associated Artery/Lesion type: [place] artery [place] vs. transplanted heart: [place] heart Associated angina: without angina Qualified Code(s): I25.10 - Atherosclerotic heart disease of [place] coronary artery without angina pectoris Is this a current diagnosis for this admission?: Yes Plan: Ct with Aspirin 81 mg qd po; NTG 0.4mg q 5minutes prn S/L x3. Cardiac diet. (10) Cervicalgia Is this a current diagnosis for this admission?: Yes Plan: Ct with oxycodone 5 mg q6h po prn; Methadone 10 mg TID prn po. (11) Reflux esophagitis Is this a current diagnosis for this admission?: Yes Plan: Ct with Prevacid 30 mg qd po since Nexium is not in our formulary; Promethazine 25 mg BID prn PO. (12) Narcolepsy Is this a current diagnosis for this admission?: Yes Plan: Ct with Provigil 200 mg qd po. (13) Depression Is this a current diagnosis for this admission?: Yes Plan: Ct with Lexapro 20 mg qd po. (14) Anemia of chronic disease Is this a current diagnosis for this admission?: Yes Plan: Ct with Ferrous sulfate 325 mg BID; monitor CBC daily. (15) DVT prophylaxis Is this a current diagnosis for this admission?: Yes
[2018-04-07 16:38] LABS: HEMATOCRIT 26.2 % (37.9-51.0); HEMOGLOBIN 8.7 g/dL (13.5-17.0); MEAN CORPUSCULAR HGB CONC 33.2 g/dL (32.0-36.0); MEAN CORPUSCULAR VOLUME 84 fl (80-97); PLATELET COUNT 125 10^3/uL (150-450); RED CELL DISTRIBUTION WIDTH 16.6 % (11.5-14.0); WHITE BLOOD COUNT 7.2 10^3/uL (4.0-10.5)
[2018-04-07] MEDS ORDERED: LIDOCAINE 1% INJ-PF (10 MG/ML) 30 ML SDV INJ PRN (17:19)
--- NOTE | 2018-04-07 19:09 | RADIOLOGY REPORT (SQ) ---
EXAM DESCRIPTION: CHEST SINGLE VIEW COMPLETED DATE/TIME: 04/07/2018 6:57 pm REASON FOR STUDY: central line placement verification D63.8 ANEMIA IN OTHER CHRONIC DISEASES CLASSI FIED ELSEWHERE COMPARISON: 04/04/2018 NUMBER OF VIEWS: One view. TECHNIQUE: Single frontal radiographic view of the chest acquired. LIMITATIONS: None. FINDINGS: Central venous access catheter placed via right subclavian approach. Catheter tip at cav o-atrial junction. No pneumothorax. Radiographic appearance of the chest otherwise stable. IMPRESSION: CENTRAL VENOUS ACCESS CATHETER IN APPROPRIATE LOCATION. NO PNEUMOTHORAX. NEW CENTRAL L INE. TECHNICAL DOCUMENTATION: JOB ID: [id number] [employer]- All Rights Reserved Reading location - IP/workstation name: [email or web address]
[2018-04-07] MEDS: ATORVASTATIN CALCIUM 20 MG TABLET PO SCH (21:09)
--- NOTE | 2018-04-07 23:16 | OPERATIVE REPORT E ---
Operative Report NAME: WINDY BERMAN : 1955 AGE: 63Y DATE OF SURGERY: 04/07/2018 ROOM: 401 PREOPERATIVE DIAGNOSIS: POOR VEINS FOR IV ACCESS. NEEDED IV AND ANTIBIOTIC THERAPY. POSTOPERATIVE DIAGNOSIS: POOR VEINS FOR IV ACCESS. NEEDED IV AND ANTIBIOTIC THERAPY. OPERATION: Placement of right subclavian vein, triple lumen catheter. SURGEON: ZORAN MITCHELL M.D. ANESTHESIA: Local. INDICATION: This is a 64-year-old male who was admitted for sepsis and needed IV access. Patient has poor peripheral veins for IV access. PROCEDURE: The patient was placed in Trendelenburg position.Ultrasound of the right internal jugular vein showed that the vein was relatively small.The neck and subclavian areas on the right side were then prepped and draped in the usual sterile fashion. Because the IJV was small, the right subclavian vein area was then anesthetized with 1% lidocaine. Right subclavian vein was subsequently punctured and guidewire passed through the needle towards the area of the superior vena cava. The needle was removed and the puncture site dilated and a triple lumen catheter inserted through the guidewire to a distance of about 15 cm. The catheter was then anchored to the skin with 3-0 silk. All the 3 ports aspirated blood easily and instilled saline easily. Biopatch was placed at the insertion site, and a transparent sterile dressing placed over the Biopatch and catheter. A chest x-ray will be obtained for placement. Patient tolerated the procedure well. DICTATING PHYSICIAN: ZORAN MITCHELL M.D. [id number] PHY#: [id number] ID: [id number] JOB#: [id number] ACCT: [id number] cc:ZORAN MITCHELL M.D. > MTDD
[2018-04-08] MEDS: LACTULOSE SYRUP 20 GM/30 ML UDCUP PO SCH ×4 (00:54→18:08)
[2018-04-08] MEDS: PIPERACILLIN SODIUM/TAZOBACTAM 3.375 GM in NORMAL SALINE 100 ML IV SCH ×4 (05:22→20:15)
[2018-04-08] MEDS: HYDRALAZINE HCL 25 MG TABLET PO SCH ×3 (06:09→22:16)
[2018-04-08] MEDS: METHADONE HCL 10 MG TABLET PO SCH ×3 (06:09→22:16)
[2018-04-08] MEDS: LANSOPRAZOLE 30 MG TAB.RAP.DR PO SCH (06:09)
[2018-04-08 06:43] LABS: HEMATOCRIT 25.1 % (37.9-51.0); HEMOGLOBIN 8.2 g/dL (13.5-17.0); MEAN CORPUSCULAR HEMOGLOBIN 27.6 pg (27.0-33.4); MEAN CORPUSCULAR HGB CONC 32.7 g/dL (32.0-36.0); MEAN CORPUSCULAR VOLUME 85 fl (80-97); PLATELET COUNT 119 10^3/uL (150-450); RED BLOOD COUNT 2.97 10^6/uL (4.35-5.55); RED CELL DISTRIBUTION WIDTH 17.4 % (11.5-14.0); WHITE BLOOD COUNT 6.1 10^3/uL (4.0-10.5)
[2018-04-08] MEDS: INSULIN LISPRO 100 UNIT/ML 3 ML VIAL SUBCUT SCH ×3 (08:10→15:45)
[2018-04-08] MEDS: METFORMIN HCL 500 MG TABLET PO SCH ×2 (08:15→18:08)
[2018-04-08] MEDS: FERROUS SULFATE 325 MG TABLET PO SCH ×2 (08:15→18:08)
[2018-04-08 08:52] LABS: ALANINE AMINOTRANSFERASE 30 U/L (21-72); ALBUMIN 2.9 g/dL (3.5-5.0); ALKALINE PHOSPHATASE 176 U/L (38-126); ANION GAP 13 (5-19); ASPARTATE AMINO TRANSFERASE 41 U/L (17-59); BILIRUBIN,DIRECT 0.4 mg/dL (0.0-0.4); BILIRUBIN,TOTAL 0.7 mg/dL (0.2-1.3); BLOOD UREA NITROGEN 18 mg/dL (7-20); CALCIUM 8.5 mg/dL (8.4-10.2); CARBON DIOXIDE 29 mmol/L (22-30); CHLORIDE 93 mmol/L (98-107); GLUCOSE 92 mg/dL (75-110); POTASSIUM 3.4 mmol/L (3.6-5.0); SODIUM 135.4 mmol/L (137-145); TOTAL PROTEIN 6.3 g/dL (6.3-8.2)
[2018-04-08] MEDS ORDERED: INSULIN GLARGINE,HUM.REC.ANLOG 1,000 UNIT/10 ML UNIT SUBCUT SCH ×3 (10:00→22:00)
[2018-04-08] MEDS: FUROSEMIDE INJ/PF 20 MG/2 ML SDV IV SCH ×2 (11:27→22:15)
[2018-04-08] MEDS: ESCITALOPRAM OXALATE 10 MG TABLET PO SCH (11:27)
[2018-04-08] MEDS: ATENOLOL 50 MG TABLET PO SCH (11:28)
[2018-04-08] MEDS: ASPIRIN 81 MG TABLET, ENT COATED PO SCH (11:28)
[2018-04-08] MEDS: MODAFINIL 100 MG TABLET PO SCH (11:28)
[2018-04-08] MEDS: DOCUSATE SODIUM 100 MG CAPSULE PO SCH ×2 (11:29→18:08)
[2018-04-08] MEDS: PREGABALIN 100 MG CAPSULE PO SCH ×2 (11:29→18:08)
[2018-04-08] MEDS: ENOXAPARIN SODIUM INJ 40 MG/0.4 ML DISP.SYRIN SUBCUT SCH (11:29)
[2018-04-08] MEDS: METOLAZONE 5 MG TABLET PO SCH (11:29)
--- NOTE | 2018-04-08 13:51 | RADIOLOGY REPORT (SQ) ---
EXAM DESCRIPTION: U/S ABDOMEN COMPLETE W/O DOP COMPLETED DATE/TIME: 04/08/2018 12:59 pm REASON FOR STUDY: ascites D63.8 ANEMIA IN OTHER CHRONIC DISEASES CLASSIFIED ELSEWHERE COMPARISON: Ultrasound 07/28/2016 TECHNIQUE: Dynamic and static grayscale images acquired of the abdomen and recorded on PACS. Additio nal selected color Doppler and spectral images recorded. LIMITATIONS: Suboptimal exam due to overlying bowel gas. FINDINGS: [employer] Attendant images of the 4 quadrants of the abdomen demonstrate trace scattered free f luid. Incidental note of a mildly distended gallbladder without stones. IMPRESSION: Trace nonspecific free fluid in the abdomen. TECHNICAL DOCUMENTATION: JOB ID: [id number] [employer]- All Rights Reserved Reading location - IP/workstation name: [email or web address]
--- NOTE | 2018-04-08 14:35 | PDOC PROGRESS REPORT ---
Subjective Progress Note for:: 04/08/18 Subjective:: Assumed care of patient for the patient. Chart and labs reviewed. No acute event overnight. Patient says he stills feels swollen and bloated. Denies SOB or chest pain. He says he has been drinking a lot of water at home and in the hospital as he thinks he needs a lot to keep himself hydrated. Says scrotal discomfort has only very slightly improved from yesterday. No fever or chills. Reason For Visit: GENERAL BODY SWELLING WITH NEED FOR IV ANTIBIOTICS Physical Exam Vital Signs: Temp Pulse Resp BP Pulse Ox 98.2 F 69 16 152/63 H 96 04/08/18 08:07 04/08/18 08:07 04/08/18 08:07 04/08/18 08:07 04/08/18 10:03 Intake & Output 04/07/18 04/08/18 04/09/18 06:59 06:59 06:59 Intake Total 200 1356 100 Balance 200 1356 100 Weight 271 lb 2.697 oz 275 lb 12.772 oz General appearance: PRESENT: no acute distress, well-developed, well-nourished Head exam: PRESENT: atraumatic, normocephalic Eye exam: PRESENT: conjunctiva pink, EOMI, PERRLA. ABSENT: scleral icterus Ear exam: PRESENT: normal external ear exam Neck exam: ABSENT: carotid bruit, JVD, lymphadenopathy, thyromegaly Respiratory exam: PRESENT: clear to auscultation jhonatan. ABSENT: rales, rhonchi, wheezes Cardiovascular exam: PRESENT: RRR. ABSENT: diastolic murmur, rubs, systolic murmur Pulses: PRESENT: normal dorsalis pedis pul GI/Abdominal exam: PRESENT: distended - no tenderness Rectal exam: PRESENT: deferred Gentrourinary exam: PRESENT: scrotal swelling Extremities exam: PRESENT: pedal edema - grade 3 bipedal edema Neurological exam: PRESENT: alert, awake, oriented to person, oriented to place , oriented to time, oriented to situation, CN II-XII grossly intact. ABSENT: motor sensory deficit Results Laboratory Results: 04/08/18 06:15 04/08/18 06:15 04/07/18 04/08/18 04/08/18 16:22 06:15 06:15 WBC 7.2 6.1 RBC 3.10 L 2.97 L Hgb 8.7 L 8.2 L Hct 26.2 L 25.1 L MCV 84 85 MCH 28.0 27.6 MCHC 33.2 32.7 RDW 16.6 H 17.4 H Plt Count 125 L 119 L Sodium 135.4 L Potassium 3.4 L Chloride 93 L Carbon Dioxide 29 Anion Gap 13 BUN 18 Creatinine 1.14 Est GFR ( Amer) > 60 Est GFR (Non-Af Amer) > 60 Glucose 92 Calcium 8.5 Total Bilirubin 0.7 AST 41 ALT 30 Alkaline Phosphatase 176 H Total Protein 6.3 Albumin 2.9 L Impressions: Scrotum Ultrasound 04/04/18 00:00 IMPRESSION: No testicular mass or torsion. Epididymitis. Bilateral hydroceles. Generalized scrotal wall thickening. Chest X-Ray 04/07/18 00:00 IMPRESSION: CENTRAL VENOUS ACCESS CATHETER IN APPROPRIATE LOCATION. NO PNEUMOTHORAX. NEW CENTRAL LINE. Assessment & Plan - Diagnosis (1) Epididymitis Is this a current diagnosis for this admission?: Yes Plan: Conitnue IV antibiotics for 2 more days. Urology following. (2) Generalized edema Is this a current diagnosis for this admission?: Yes Plan: Multifactorial. This is likely secondary to third spacing due to patient's hypoalbuminemia, cirrhosis and CHF. Continue diuretics. I&Os. Sodium restriction. Fluid restriction of 1.5L. Counseled patient a she syas he does drink more than 3L of water at times to hydrate himself. (3) Cirrhosis Qualifiers: Hepatic cirrhosis type: other cirrhosis Qualified Code(s): K74.69 - Other cirrhosis of liver Is this a current diagnosis for this admission?: Yes Plan: Likely from chronic Hep C. Patient says he was treated for this. Continue lactulose and diuretics. Will assess for significant ascites with abdominal US due to abdominal distention. (4) Hypertension Qualifiers: Hypertension type: essential hypertension Qualified Code(s): I10 - Essential (primary) hypertension Is this a current diagnosis for this admission?: Yes Plan: Controlled. Continue atenolol and hydralazine PO. (5) Reflux esophagitis Is this a current diagnosis for this admission?: Yes Plan: Continue lansoprazole. (6) Coronary artery disease Qualifiers: Coronary Disease-Associated Artery/Lesion type: [place] artery [place] vs. transplanted heart: [place] heart Associated angina: without angina Qualified Code(s): I25.10 - Atherosclerotic heart disease of [place] coronary artery without angina pectoris Is this a current diagnosis for this admission?: Yes Plan: Continue aspirin and statin. (7) Diabetes mellitus type 2 in obese Is this a current diagnosis for this admission?: Yes Plan: Noted sugars overnight with lows in 57 and 70s. Decrease Lantus to 55 from 60 u bid for now. - Time Time Spent with patient: 25-34 minutes
[2018-04-08] MEDS ORDERED: INSULIN GLARGINE,HUM.REC.ANLOG 1,000 UNIT/10 ML UNIT SUBCUT ONE (19:00)
[2018-04-08] MEDS: ATORVASTATIN CALCIUM 20 MG TABLET PO SCH (22:17)
[2018-04-09] MEDS: LACTULOSE SYRUP 20 GM/30 ML UDCUP PO SCH ×5 (01:05→23:47)
[2018-04-09] MEDS: PIPERACILLIN SODIUM/TAZOBACTAM 3.375 GM in NORMAL SALINE 100 ML IV SCH ×4 (03:17→21:57)
[2018-04-09] MEDS: LANSOPRAZOLE 30 MG TAB.RAP.DR PO SCH (05:48)
[2018-04-09] MEDS: METHADONE HCL 10 MG TABLET PO SCH ×3 (05:48→21:57)
[2018-04-09] MEDS: HYDRALAZINE HCL 25 MG TABLET PO SCH ×2 (05:49→13:41)
[2018-04-09] MEDS ORDERED: IBUPROFEN 600 MG TABLET PO PRN (06:33)
[2018-04-09 07:38] LABS: ALANINE AMINOTRANSFERASE 30 U/L (21-72); ALBUMIN 2.8 g/dL (3.5-5.0); ALKALINE PHOSPHATASE 157 U/L (38-126); ANION GAP 10 (5-19); ASPARTATE AMINO TRANSFERASE 42 U/L (17-59); BILIRUBIN,DIRECT 0.3 mg/dL (0.0-0.4); BILIRUBIN,TOTAL 0.6 mg/dL (0.2-1.3); BLOOD UREA NITROGEN 20 mg/dL (7-20); CALCIUM 8.5 mg/dL (8.4-10.2); CARBON DIOXIDE 32 mmol/L (22-30); CHLORIDE 96 mmol/L (98-107); GLUCOSE 68 mg/dL (75-110); POTASSIUM 3.3 mmol/L (3.6-5.0); SODIUM 138.1 mmol/L (137-145)
[2018-04-09] MEDS ORDERED: INSULIN GLARGINE,HUM.REC.ANLOG 1,000 UNIT/10 ML UNIT SUBCUT SCH (10:00)
[2018-04-09] MEDS: INSULIN LISPRO 100 UNIT/ML 3 ML VIAL SUBCUT SCH ×3 (10:07→17:48)
[2018-04-09] MEDS: DOCUSATE SODIUM 100 MG CAPSULE PO SCH ×2 (10:08→19:59)
[2018-04-09] MEDS: ENOXAPARIN SODIUM INJ 40 MG/0.4 ML DISP.SYRIN SUBCUT SCH ×2 (10:37→10:52)
[2018-04-09] MEDS: ASPIRIN 81 MG TABLET, ENT COATED PO SCH (10:41)
[2018-04-09] MEDS: METOLAZONE 5 MG TABLET PO SCH (10:41)
[2018-04-09] MEDS: ESCITALOPRAM OXALATE 10 MG TABLET PO SCH (10:42)
[2018-04-09] MEDS: FERROUS SULFATE 325 MG TABLET PO SCH ×2 (10:42→17:48)
[2018-04-09] MEDS: METFORMIN HCL 500 MG TABLET PO SCH ×2 (10:42→17:48)
[2018-04-09] MEDS: PREGABALIN 100 MG CAPSULE PO SCH ×2 (10:42→17:48)
[2018-04-09] MEDS: FUROSEMIDE INJ/PF 20 MG/2 ML SDV IV SCH ×2 (10:43→21:59)
[2018-04-09] MEDS: ATENOLOL 50 MG TABLET PO SCH (10:55)
[2018-04-09] MEDS: MODAFINIL 100 MG TABLET PO SCH (11:02)
[2018-04-09] MEDS: INSULIN GLARGINE,HUM.REC.ANLOG 1,000 UNIT/10 ML UNIT SUBCUT SCH ×2 (13:37→22:22)
[2018-04-09] MEDS ORDERED: SPIRONOLACTONE 25 MG TABLET PO SCH ×2 (14:30→17:00)
--- NOTE | 2018-04-09 14:38 | PDOC PROGRESS REPORT ---
Subjective Progress Note for:: 04/09/18 Subjective:: No acute event overnight. Patient says he stills feels swollen and bloated but this has slightly improved today compared from yesterday. Denies SOB or chest pain. No fever or chills. Reason For Visit: GENERAL BODY SWELLING WITH NEED FOR IV ANTIBIOTICS Physical Exam Vital Signs: Temp Pulse Resp BP Pulse Ox 98.6 F 65 15 115/40 L 95 04/09/18 12:00 04/09/18 12:00 04/09/18 12:00 04/09/18 12:00 04/09/18 12:00 Intake & Output 04/08/18 04/09/18 04/10/18 06:59 06:59 06:59 Intake Total 1356 1180 Balance 1356 1180 Weight 275 lb 12.772 oz 271 lb 9.752 oz General appearance: PRESENT: no acute distress, obese Head exam: PRESENT: atraumatic, normocephalic Eye exam: PRESENT: conjunctiva pink, EOMI, PERRLA. ABSENT: scleral icterus Neck exam: ABSENT: carotid bruit, JVD, lymphadenopathy, thyromegaly Respiratory exam: PRESENT: clear to auscultation jhonatan. ABSENT: rales, rhonchi, wheezes Cardiovascular exam: PRESENT: RRR GI/Abdominal exam: PRESENT: distended - No tenderness or masses Rectal exam: PRESENT: deferred Gentrourinary exam: PRESENT: other - Patient's scrotum remain enlarged. Neurological exam: PRESENT: alert, awake, oriented to person, oriented to place , oriented to time, oriented to situation, CN II-XII grossly intact. ABSENT: motor sensory deficit Results Laboratory Results: 04/08/18 06:15 04/09/18 06:05 04/09/18 06:05 Sodium 138.1 Potassium 3.3 L Chloride 96 L Carbon Dioxide 32 H Anion Gap 10 BUN 20 Creatinine 0.88 Est GFR ( Amer) > 60 Est GFR (Non-Af Amer) > 60 Glucose 68 L Calcium 8.5 Total Bilirubin 0.6 AST 42 ALT 30 Alkaline Phosphatase 157 H Total Protein 6.0 L Albumin 2.8 L Impressions: Scrotum Ultrasound 04/04/18 00:00 IMPRESSION: No testicular mass or torsion. Epididymitis. Bilateral hydroceles. Generalized scrotal wall thickening. Chest X-Ray 04/07/18 00:00 IMPRESSION: CENTRAL VENOUS ACCESS CATHETER IN APPROPRIATE LOCATION. NO PNEUMOTHORAX. NEW CENTRAL LINE. Abdomen Ultrasound 04/08/18 00:00 IMPRESSION: Trace nonspecific free fluid in the abdomen. Assessment & Plan - Diagnosis (1) Epididymitis Is this a current diagnosis for this admission?: Yes Plan: Conitnue IV antibiotics for another day. Urology following. (2) Generalized edema Is this a current diagnosis for this admission?: Yes Plan: Multifactorial. This is likely secondary to third spacing due to patient's hypoalbuminemia, cirrhosis and CHF. Continue diuretics. I&Os. Sodium restriction. Fluid restriction of 1.5L. Patient is currently getting Lasix 20 mg twice daily. Will add spironolactone and will start with a lower dose of 25 mg twice daily. This may be increased to 50 mg twice daily if patient is able to tolerate the diuretic regimen. (3) Cirrhosis Qualifiers: Hepatic cirrhosis type: other cirrhosis Qualified Code(s): K74.69 - Other cirrhosis of liver Is this a current diagnosis for this admission?: Yes Plan: Likely from chronic Hep C. Patient says he was not treated for this. Continue lactulose and diuretics. Ultrasound of the abdomen done yesterday did not reveal significant ascites amenable for tapping. Patient is currently getting Lasix 20 mg twice daily. Will add spironolactone and will start with a lower dose of 25 mg twice daily. This may be increased to 50 mg twice daily if patient is able to tolerate the diuretic regimen. (4) Hypertension Qualifiers: Hypertension type: essential hypertension Qualified Code(s): I10 - Essential (primary) hypertension Is this a current diagnosis for this admission?: Yes Plan: Reviewed patient's blood pressures. He has been having low normal blood pressures. Will decrease p.o. hydralazine from 25 to 10 mg q8h as patient will also be started on spironolactone. (5) Reflux esophagitis Is this a current diagnosis for this admission?: Yes Plan: Continue lansoprazole. (6) Coronary artery disease Qualifiers: Coronary Disease-Associated Artery/Lesion type: [place] artery [place] vs. transplanted heart: [place] heart Associated angina: without angina Qualified Code(s): I25.10 - Atherosclerotic heart disease of [place] coronary artery without angina pectoris Is this a current diagnosis for this admission?: Yes Plan: Continue aspirin and statin. (7) Diabetes mellitus type 2 in obese Is this a current diagnosis for this admission?: Yes Plan: Sugars have been much better (low 100s) after reducing Lantus yesterday to 55 units q12. No recurrence of hypoglycemic episodes so far. Continue current Lantus dose. (8) Hypokalemia Is this a current diagnosis for this admission?: Yes Plan: Patient's potassium this morning 3.3. This is likely diuretic induced. Will replace potassium and will start patient on regular oral potassium with 20 meqs daily. Note patient will also be started on spironolactone which will also offset furosemide-induced hypokalemia. Recheck BMP tomorrow. - Time Time Spent with patient: 25-34 minutes
[2018-04-09] MEDS: ATORVASTATIN CALCIUM 20 MG TABLET PO SCH (21:59)
[2018-04-09] MEDS: HYDRALAZINE HCL 10 MG TABLET PO SCH (21:59)
[2018-04-10] MEDS: PIPERACILLIN SODIUM/TAZOBACTAM 3.375 GM in NORMAL SALINE 100 ML IV SCH ×4 (04:11→21:07)
[2018-04-10] MEDS: HYDRALAZINE HCL 10 MG TABLET PO SCH ×3 (05:36→21:07)
[2018-04-10] MEDS: LACTULOSE SYRUP 20 GM/30 ML UDCUP PO SCH ×4 (05:36→23:44)
[2018-04-10] MEDS: METHADONE HCL 10 MG TABLET PO SCH ×3 (05:37→21:07)
[2018-04-10] MEDS: LANSOPRAZOLE 30 MG TAB.RAP.DR PO SCH (05:37)
[2018-04-10] MEDS: INSULIN LISPRO 100 UNIT/ML 3 ML VIAL SUBCUT SCH ×3 (08:04→17:08)
[2018-04-10] MEDS: FERROUS SULFATE 325 MG TABLET PO SCH ×2 (08:05→17:09)
[2018-04-10] MEDS: METFORMIN HCL 500 MG TABLET PO SCH ×2 (08:05→17:09)
[2018-04-10] MEDS: ATENOLOL 50 MG TABLET PO SCH (09:39)
[2018-04-10] MEDS: PREGABALIN 100 MG CAPSULE PO SCH ×2 (09:39→17:09)
[2018-04-10] MEDS: ASPIRIN 81 MG TABLET, ENT COATED PO SCH (09:39)
[2018-04-10] MEDS: ESCITALOPRAM OXALATE 10 MG TABLET PO SCH (09:39)
[2018-04-10] MEDS: FUROSEMIDE INJ/PF 20 MG/2 ML SDV IV SCH ×2 (09:39→21:06)
[2018-04-10] MEDS: DOCUSATE SODIUM 100 MG CAPSULE PO SCH ×2 (09:39→17:30)
[2018-04-10] MEDS: ENOXAPARIN SODIUM INJ 40 MG/0.4 ML DISP.SYRIN SUBCUT SCH (09:40)
[2018-04-10] MEDS: POTASSIUM CHLORIDE 20 MEQ/15 ML UDCUP PO SCH (09:40)
[2018-04-10] MEDS: MODAFINIL 100 MG TABLET PO SCH (09:40)
[2018-04-10] MEDS: METOLAZONE 5 MG TABLET PO SCH (09:43)
[2018-04-10] MEDS: INSULIN GLARGINE,HUM.REC.ANLOG 1,000 UNIT/10 ML UNIT SUBCUT SCH ×2 (09:44→21:18)
[2018-04-10] MEDS ORDERED: ACETAMINOPHEN 325 MG TABLET PO PRN (13:10)
--- NOTE | 2018-04-10 16:41 | PDOC PROGRESS REPORT ---
Subjective Progress Note for:: 04/10/18 Subjective:: He is feeling better, though he still has scrotal swelling. He is having oral thrush due to antibiotics; we will add Nystatin swish and swallow. We will f/u with urologist on further mgt of scrotal swelling. Reason For Visit: GENERAL BODY SWELLING WITH NEED FOR IV ANTIBIOTICS Physical Exam Vital Signs: Temp Pulse Resp BP Pulse Ox 98.6 F 69 16 140/59 H 96 04/10/18 12:00 04/10/18 12:00 04/10/18 12:00 04/10/18 12:00 04/10/18 12:00 Intake & Output 04/09/18 04/10/18 04/11/18 06:59 06:59 06:59 Intake Total 1180 1534 695 Balance 1180 1534 695 Weight 123.2 kg 124.2 kg General appearance: PRESENT: no acute distress, cooperative, morbidly obese, well-nourished Head exam: PRESENT: atraumatic, normocephalic Eye exam: PRESENT: EOMI, PERRLA Ear exam: PRESENT: normal external ear exam, TM's normal bilaterally Mouth exam: PRESENT: neck supple, tongue midline Neck exam: PRESENT: full ROM Respiratory exam: PRESENT: decreased breath sounds, symmetrical Cardiovascular exam: PRESENT: +S1, +S2 Pulses: PRESENT: +1 pedal pulses bilateral GI/Abdominal exam: PRESENT: normal bowel sounds, soft Rectal exam: PRESENT: deferred Extremities exam: PRESENT: full ROM Neurological exam: PRESENT: alert, awake, oriented to person, oriented to place , oriented to time Psychiatric exam: PRESENT: normal mood Results Laboratory Results: 04/08/18 06:15 04/09/18 06:05 Impressions: Scrotum Ultrasound 04/04/18 00:00 IMPRESSION: No testicular mass or torsion. Epididymitis. Bilateral hydroceles. Generalized scrotal wall thickening. Chest X-Ray 04/07/18 00:00 IMPRESSION: CENTRAL VENOUS ACCESS CATHETER IN APPROPRIATE LOCATION. NO PNEUMOTHORAX. NEW CENTRAL LINE. Abdomen Ultrasound 04/08/18 00:00 IMPRESSION: Trace nonspecific free fluid in the abdomen. Assessment & Plan - Diagnosis (1) Epididymitis Is this a current diagnosis for this admission?: Yes Plan: We will put him on Zosyn 3.375 mg q6h IV; elevate the scrotum. F/u urologist, Dr Puentes. (2) Scrotal swelling Is this a current diagnosis for this admission?: Yes Plan: Gen. body swelling/Scrotal swelling- we will switch him to Lasix 20 mg BID IV; Metolazone 5 mg daily po; strict input/output chart; daily weight; monitor chemistries daily. D/C Amlodipine. (3) Diabetes mellitus type 2 in obese Is this a current diagnosis for this admission?: Yes Plan: Ct with accucheck QAC, QHS with slidding scale humalog insulin as per [facility] protocol; Metformin 55 iu BID subcut; Metformin 1000mg BID po; 1800 calorie ADA diet. (4) Hypertension Qualifiers: Hypertension type: essential hypertension Qualified Code(s): I10 - Essential (primary) hypertension Is this a current diagnosis for this admission?: Yes Plan: Ct with Atenolol 100 mg qd po; switch to Hydralazine 10 mg TID po; D/C Amlodipine due to worsening body swelling and leg swelling; 2 g sodium diet. (5) Hyperlipidemia Qualifiers: Hyperlipidemia type: unspecified Qualified Code(s): E78.5 - Hyperlipidemia , unspecified Is this a current diagnosis for this admission?: Yes Plan: Ct with Atorvastatin 20 mg qhs po; 200 mg cholesterol diet. (6) Diabetic neuropathy Is this a current diagnosis for this admission?: Yes Plan: Ct with Lyrica 100 mg BID po. (7) Cirrhosis Qualifiers: Hepatic cirrhosis type: other cirrhosis Qualified Code(s): K74.69 - Other cirrhosis of liver Is this a current diagnosis for this admission?: Yes Plan: Ct with Lactulose 30 mls q6h po; Metolazone 5 mg qd po; Lasix 20 mg BID IV. (8) Asthma Qualifiers: Asthma severity: unspecified severity Asthma complication type: uncomplicated Qualified Code(s): J45.909 - Unspecified asthma, uncomplicated Is this a current diagnosis for this admission?: Yes Plan: Ct with Albuterol nebs 3mls q6h prn; Ventolin HFA- 2 puffs q6h prn. (9) Coronary artery disease Qualifiers: Coronary Disease-Associated Artery/Lesion type: [place] artery [place] vs. transplanted heart: [place] heart Associated angina: without angina Qualified Code(s): I25.10 - Atherosclerotic heart disease of [place] coronary artery without angina pectoris Is this a current diagnosis for this admission?: Yes Plan: Ct with Aspirin 81 mg qd po; NTG 0.4mg q 5minutes prn S/L x3. Cardiac diet. (10) Cervicalgia Is this a current diagnosis for this admission?: Yes Plan: Ct with oxycodone 5 mg q6h po prn; Methadone 10 mg TID prn po; Ibuprofen 600 mg q8h po prn. (11) Reflux esophagitis Is this a current diagnosis for this admission?: Yes Plan: Ct with Prevacid 30 mg qd po since Nexium is not in our formulary; Promethazine 25 mg BID prn PO. (12) Narcolepsy Is this a current diagnosis for this admission?: Yes Plan: Ct with Provigil 200 mg qd po. (13) Depression Is this a current diagnosis for this admission?: Yes Plan: Ct with Lexapro 20 mg qd po. (14) Anemia of chronic disease Is this a current diagnosis for this admission?: Yes Plan: Ct with Ferrous sulfate 325 mg BID; monitor CBC daily. (15) DVT prophylaxis Is this a current diagnosis for this admission?: Yes Plan: Ct with Lovenox 40 mg daily subcut; SCD. (16) Hypokalemia Is this a current diagnosis for this admission?: Yes Plan: Ct with KCL 20 MEQ qd po; f/u chemistries daily (17) Oral candidiasis Is this a current diagnosis for this admission?: Yes Plan: Ct with Nystatin swish and swallow 5 ml q6h po.
[2018-04-10] MEDS: OXYCODONE HCL IR 5 MG TABLET PO PRN (18:34)
[2018-04-10] MEDS: NYSTATIN 500000 UNIT/5 ML UDCUP PO SCH ×2 (18:35→23:44)
--- NOTE | 2018-04-10 20:34 | XCELERA REPORT ---
[address] [address] Transthoracic Echocardiogram Report Name: WINDY BERMAN Age: 63 yrs Gender: Male : 1955 Patient Status: Inpatient Patient Location: [address] [place], [place] [id number] Study Date: 04/10/2018 09:40 AM Height: 71 in Weight: 271 lb BSA: 2.4 m2 Procedure: A complete two-dimensional transthoracic echocardiogram was performed (2D, M-mode, spectral and color flow Doppler). The study was technically adequate with some images being suboptimal in quality. Reason For Study: HX OF CHF, WORSNEING EDEMA SOB Ordering Physician: VIMAL ARCHIBALD Performed By: Jessica Camacho Interpretation Summary The left ventricular ejection fraction is normal. There is borderline concentric left ventricular hypertrophy. The left ventricle is grossly normal size. Doppler measurements suggest pseudonormalized left ventricular relaxation, which is associated with grade II/IV or mild to moderate diastolic dysfunction Wall motion cannot be accurately commented on, but no definite regional wall motion abnormalities noted. The right ventricle is mildly dilated. The right ventricle appears to be hypertrophied The right ventricular systolic function is normal. The left atrium is moderately dilated. The right atrium is mildly dilated. There is a mild amount of mitral regurgitation There is no mitral valve stenosis. No aortic regurgitation is present. There is no aortic stenosis There is a mild to moderate amount of tricuspid regurgitation There is moderate to severe pulmonary hypertension by echo Best estimated RVSP is approximately 60 mm/Hg. The aortic root is not well visualized but is probably normal size. The inferior vena cava was not well visualized There is no pericardial effusion. MMode/2D Measurements & Calculations RVDd: 3.3 cm LVIDd: 7.0 cm FS: 29.4 % Ao root diam: 2.7 cm IVSd: 0.98 cm LVIDs: 5.0 cm EDV(Teich): 258.4 ml Ao root area: 5.7 cm2 LVPWd: 1.1 cm ESV(Teich): 116.6 ml LA dimension: 4.0 cm EF(Teich): 54.9 % LVOT diam: 2.0 cm LVOT area: 3.2 cm2 Doppler Measurements & Calculations MV E max destiny: MV P1/2t max destiny: Ao V2 max: LV V1 max P.1 cm/sec 166.1 cm/sec 192.9 cm/sec 5.2 mmHg MV A max destiny: MV P1/2t: 67.9 msec Ao max PG: LV V1 max: 65.4 cm/sec MVA(P1/2t): 3.2 cm2 14.9 mmHg 113.5 cm/sec MV E/A: 2.3 MV dec slope: CONSUELO(V,D): 1.9 cm2 716.4 cm/sec2 MV dec time: 0.20 sec PA V2 max: TR max destiny: MV P1/2t-pr_phl: 122.2 cm/sec 372.5 cm/sec 67.9 msec PA max P.0 mmHgTR max P.5 mmHg Left Ventricle The left ventricle is grossly normal size. There is borderline concentric left ventricular hypertrophy. The left ventricular ejection fraction is normal. Doppler measurements suggest pseudonormalized left ventricular relaxation, which is associated with grade II/IV or mild to moderate diastolic dysfunction. Wall motion cannot be accurately commented on, but no definite regional wall motion abnormalities noted. Right Ventricle The right ventricle is mildly dilated. The right ventricle appears to be hypertrophied. The right ventricular systolic function is normal. Atria The right atrium is mildly dilated. The left atrium is moderately dilated. Interarterial septum not well visualized and not well dopplered. Cannot comment on ASD/PFO presence. Mitral Valve The mitral valve is grossly normal. There is no mitral valve stenosis. There is a mild amount of mitral regurgitation. Aortic Valve The aortic valve is mildly calcified. There is no aortic stenosis. No aortic regurgitation is present. Tricuspid Valve The tricuspid valve is not well visualized secondary to technical limitations. There is no tricuspid stenosis. There is a mild to moderate amount of tricuspid regurgitation. There is moderate to severe pulmonary hypertension by echo. Best estimated RVSP is approximately 60 mm/Hg. Pulmonic Valve The pulmonic valve is not well visualized. Great Vessels The aortic root is not well visualized but is probably normal size. The inferior vena cava was not well visualized. Effusions There is no pericardial effusion. : VIMAL ARCHIBALD > Kyle Cintron
[2018-04-10] MEDS: ATORVASTATIN CALCIUM 20 MG TABLET PO SCH (21:07)
[2018-04-11] MEDS: OXYCODONE HCL IR 5 MG TABLET PO PRN ×2 (03:03→16:06)
[2018-04-11] MEDS: PIPERACILLIN SODIUM/TAZOBACTAM 3.375 GM in NORMAL SALINE 100 ML IV SCH ×4 (03:04→22:15)
[2018-04-11] MEDS: NYSTATIN 500000 UNIT/5 ML UDCUP PO SCH ×4 (06:06→23:56)
[2018-04-11] MEDS: LACTULOSE SYRUP 20 GM/30 ML UDCUP PO SCH ×4 (06:06→23:56)
[2018-04-11] MEDS: METHADONE HCL 10 MG TABLET PO SCH ×2 (06:07→22:20)
[2018-04-11] MEDS: HYDRALAZINE HCL 10 MG TABLET PO SCH ×3 (06:07→22:21)
[2018-04-11] MEDS: LANSOPRAZOLE 30 MG TAB.RAP.DR PO SCH (06:08)
[2018-04-11 07:27] LABS: ALBUMIN 3.1 g/dL (3.5-5.0); ANION GAP 9 (5-19); BLOOD UREA NITROGEN 27 mg/dL (7-20); CARBON DIOXIDE 34 mmol/L (22-30); CHLORIDE 98 mmol/L (98-107); GLUCOSE 85 mg/dL (75-110); POTASSIUM 3.7 mmol/L (3.6-5.0); SODIUM 141.1 mmol/L (137-145); TOTAL PROTEIN 6.3 g/dL (6.3-8.2)
[2018-04-11 07:28] LABS: ALANINE AMINOTRANSFERASE 35 U/L (21-72); ALKALINE PHOSPHATASE 156 U/L (38-126); ASPARTATE AMINO TRANSFERASE 43 U/L (17-59); BILIRUBIN,DIRECT 0.3 mg/dL (0.0-0.4); BILIRUBIN,TOTAL 0.8 mg/dL (0.2-1.3)
[2018-04-11] MEDS: METFORMIN HCL 500 MG TABLET PO SCH ×2 (08:48→16:06)
[2018-04-11] MEDS: INSULIN LISPRO 100 UNIT/ML 3 ML VIAL SUBCUT SCH ×2 (08:49→13:03)
[2018-04-11] MEDS: ASPIRIN 81 MG TABLET, ENT COATED PO SCH (10:14)
[2018-04-11] MEDS: ENOXAPARIN SODIUM INJ 40 MG/0.4 ML DISP.SYRIN SUBCUT SCH (10:15)
[2018-04-11] MEDS: FUROSEMIDE INJ/PF 20 MG/2 ML SDV IV SCH ×2 (10:15→22:19)
[2018-04-11] MEDS: POTASSIUM CHLORIDE 20 MEQ/15 ML UDCUP PO SCH (10:15)
[2018-04-11] MEDS: PREGABALIN 100 MG CAPSULE PO SCH ×2 (10:15→18:32)
[2018-04-11] MEDS: METOLAZONE 5 MG TABLET PO SCH (10:16)
[2018-04-11] MEDS: ESCITALOPRAM OXALATE 10 MG TABLET PO SCH (10:16)
[2018-04-11] MEDS: FERROUS SULFATE 325 MG TABLET PO SCH ×2 (10:16→18:32)
[2018-04-11] MEDS: ATENOLOL 50 MG TABLET PO SCH (10:17)
[2018-04-11] MEDS: DOCUSATE SODIUM 100 MG CAPSULE PO SCH ×2 (10:18→18:32)
[2018-04-11] MEDS: INSULIN GLARGINE,HUM.REC.ANLOG 1,000 UNIT/10 ML UNIT SUBCUT SCH ×2 (10:27→22:16)
--- NOTE | 2018-04-11 16:27 | PDOC PROGRESS REPORT ---
Subjective Progress Note for:: 04/11/18 Subjective:: He still has scrotal swelling; Pt encouraged to elevate the scrotum. He had ECHO yesterday and EF is 55% and no abnormality see. He also had Abd. US on that did not show any ascites. We will ct with IV antibiotics and Lasix since urologist, Dr Puentes said that there was nothing much that could done except to ct with present mgt. Reason For Visit: GENERAL BODY SWELLING WITH NEED FOR IV ANTIBIOTICS Physical Exam Vital Signs: Temp Pulse Resp BP Pulse Ox 98.2 F 66 16 138/54 H 97 04/11/18 12:00 04/11/18 14:00 04/11/18 12:00 04/11/18 08:48 04/11/18 12:00 Intake & Output 04/10/18 04/11/18 04/12/18 06:59 06:59 06:59 Intake Total 1534 995 795 Balance 1534 995 795 Weight 124.2 kg 122.4 kg General appearance: PRESENT: no acute distress, cooperative, morbidly obese, well-nourished Head exam: PRESENT: atraumatic, normocephalic Eye exam: PRESENT: EOMI, PERRLA Mouth exam: PRESENT: neck supple, tongue midline Respiratory exam: PRESENT: clear to auscultation jhonatan, symmetrical Cardiovascular exam: PRESENT: +S1, +S2 Pulses: PRESENT: +1 pedal pulses bilateral GI/Abdominal exam: PRESENT: normal bowel sounds, soft Rectal exam: PRESENT: deferred Extremities exam: PRESENT: full ROM Musculoskeletal exam: PRESENT: full ROM Neurological exam: PRESENT: alert, awake, oriented to person, oriented to place , oriented to time Psychiatric exam: PRESENT: normal mood Results Laboratory Results: 04/08/18 06:15 04/11/18 06:55 04/11/18 06:55 Sodium 141.1 Potassium 3.7 Chloride 98 Carbon Dioxide 34 H Anion Gap 9 BUN 27 H Creatinine 1.01 Est GFR ( Amer) > 60 Est GFR (Non-Af Amer) > 60 Glucose 85 Calcium 9.0 Total Bilirubin 0.8 AST 43 ALT 35 Alkaline Phosphatase 156 H Total Protein 6.3 Albumin 3.1 L Impressions: Scrotum Ultrasound 04/04/18 00:00 IMPRESSION: No testicular mass or torsion. Epididymitis. Bilateral hydroceles. Generalized scrotal wall thickening. Chest X-Ray 04/07/18 00:00 IMPRESSION: CENTRAL VENOUS ACCESS CATHETER IN APPROPRIATE LOCATION. NO PNEUMOTHORAX. NEW CENTRAL LINE. Abdomen Ultrasound 04/08/18 00:00 IMPRESSION: Trace nonspecific free fluid in the abdomen. Assessment & Plan - Diagnosis (1) Epididymitis Is this a current diagnosis for this admission?: Yes Plan: We will put him on Zosyn 3.375 mg q6h IV; elevate the scrotum. F/u urologist, Dr Puentes. (2) Scrotal swelling Is this a current diagnosis for this admission?: Yes Plan: Gen. body swelling/Scrotal swelling- we will switch him to Lasix 20 mg BID IV; Metolazone 5 mg daily po; strict input/output chart; daily weight; monitor chemistries daily. D/C Amlodipine. (3) Diabetes mellitus type 2 in obese Is this a current diagnosis for this admission?: Yes Plan: Ct with accucheck QAC, QHS with slidding scale humalog insulin as per [facility] protocol; Metformin 55 iu BID subcut; Metformin 1000mg BID po; 1800 calorie ADA diet. (4) Hypertension Qualifiers: Hypertension type: essential hypertension Qualified Code(s): I10 - Essential (primary) hypertension Is this a current diagnosis for this admission?: Yes Plan: Ct with Atenolol 100 mg qd po; switch to Hydralazine 10 mg TID po; D/C Amlodipine due to worsening body swelling and leg swelling; 2 g sodium diet. (5) Hyperlipidemia Qualifiers: Hyperlipidemia type: unspecified Qualified Code(s): E78.5 - Hyperlipidemia , unspecified Is this a current diagnosis for this admission?: Yes Plan: Ct with Atorvastatin 20 mg qhs po; 200 mg cholesterol diet. (6) Diabetic neuropathy Is this a current diagnosis for this admission?: Yes Plan: Ct with Lyrica 100 mg BID po. (7) Cirrhosis Qualifiers: Hepatic cirrhosis type: other cirrhosis Qualified Code(s): K74.69 - Other cirrhosis of liver Is this a current diagnosis for this admission?: Yes Plan: Ct with Lactulose 30 mls q6h po; Metolazone 5 mg qd po; Lasix 20 mg BID IV. (8) Asthma Qualifiers: Asthma severity: unspecified severity Asthma complication type: uncomplicated Qualified Code(s): J45.909 - Unspecified asthma, uncomplicated Is this a current diagnosis for this admission?: Yes Plan: Ct with Albuterol nebs 3mls q6h prn; Ventolin HFA- 2 puffs q6h prn. (9) Coronary artery disease Qualifiers: Coronary Disease-Associated Artery/Lesion type: [place] artery [place] vs. transplanted heart: [place] heart Associated angina: without angina Qualified Code(s): I25.10 - Atherosclerotic heart disease of [place] coronary artery without angina pectoris Is this a current diagnosis for this admission?: Yes Plan: Ct with Aspirin 81 mg qd po; NTG 0.4mg q 5minutes prn S/L x3. Cardiac diet. (10) Cervicalgia Is this a current diagnosis for this admission?: Yes Plan: Ct with oxycodone 5 mg q6h po prn; Methadone 10 mg TID prn po; Ibuprofen 600 mg q8h po prn. (11) Reflux esophagitis Is this a current diagnosis for this admission?: Yes Plan: Ct with Prevacid 30 mg qd po since Nexium is not in our formulary; Promethazine 25 mg BID prn PO. (12) Narcolepsy Is this a current diagnosis for this admission?: Yes Plan: Ct with Provigil 200 mg qd po. (13) Depression Is this a current diagnosis for this admission?: Yes Plan: Ct with Lexapro 20 mg qd po. (14) Anemia of chronic disease Is this a current diagnosis for this admission?: Yes Plan: Ct with Ferrous sulfate 325 mg BID; monitor CBC daily. (15) DVT prophylaxis Is this a current diagnosis for this admission?: Yes Plan: Ct with Lovenox 40 mg daily subcut; SCD. (16) Hypokalemia Is this a current diagnosis for this admission?: Yes Plan: Ct with KCL 20 MEQ qd po; f/u chemistries daily (17) Oral candidiasis Is this a current diagnosis for this admission?: Yes Plan: Ct with Nystatin swish and swallow 5 ml q6h po.
[2018-04-11] MEDS ORDERED: ALBUTEROL SULFATE HFA (90 MCG/PUFF) 8 GM MDI (1 MDI/ER DISP) IH PRN (16:30)
[2018-04-11] MEDS ORDERED: METHADONE HCL 10 MG TABLET PO ONE ×2 (16:30)
[2018-04-11] MEDS ORDERED: ALBUTEROL SULFATE HFA (90 MCG/PUFF) 200 PUFF/8.5 GM MDI IH PRN (16:33)
[2018-04-11] MEDS: ATORVASTATIN CALCIUM 20 MG TABLET PO SCH (22:19)
[2018-04-12] MEDS: OXYCODONE HCL IR 5 MG TABLET PO PRN ×3 (04:12→17:39)
[2018-04-12] MEDS: PIPERACILLIN SODIUM/TAZOBACTAM 3.375 GM in NORMAL SALINE 100 ML IV SCH ×4 (04:13→20:47)
[2018-04-12] MEDS: METHADONE HCL 10 MG TABLET PO SCH ×3 (05:13→21:34)
[2018-04-12] MEDS: LANSOPRAZOLE 30 MG TAB.RAP.DR PO SCH (05:13)
[2018-04-12] MEDS: HYDRALAZINE HCL 10 MG TABLET PO SCH ×3 (05:13→21:31)
[2018-04-12] MEDS: NYSTATIN 500000 UNIT/5 ML UDCUP PO SCH ×4 (05:13→23:00)
[2018-04-12] MEDS: LACTULOSE SYRUP 20 GM/30 ML UDCUP PO SCH ×4 (05:14→23:58)
[2018-04-12 05:51] LABS: ALANINE AMINOTRANSFERASE 28 U/L (21-72); ALKALINE PHOSPHATASE 148 U/L (38-126); ANION GAP 12 (5-19); ASPARTATE AMINO TRANSFERASE 41 U/L (17-59); BILIRUBIN,DIRECT 0.4 mg/dL (0.0-0.4); BILIRUBIN,TOTAL 0.7 mg/dL (0.2-1.3); BLOOD UREA NITROGEN 27 mg/dL (7-20); CALCIUM 8.7 mg/dL (8.4-10.2); CARBON DIOXIDE 32 mmol/L (22-30); CHLORIDE 98 mmol/L (98-107); GLUCOSE 107 mg/dL (75-110); POTASSIUM 3.8 mmol/L (3.6-5.0); SODIUM 141.9 mmol/L (137-145); TOTAL PROTEIN 6.2 g/dL (6.3-8.2)
[2018-04-12] MEDS: DOCUSATE SODIUM 100 MG CAPSULE PO SCH ×2 (09:45→17:39)
[2018-04-12] MEDS: METOLAZONE 5 MG TABLET PO SCH (10:19)
[2018-04-12] MEDS: FERROUS SULFATE 325 MG TABLET PO SCH ×2 (10:19→17:39)
[2018-04-12] MEDS: ATENOLOL 50 MG TABLET PO SCH (10:19)
[2018-04-12] MEDS: PREGABALIN 100 MG CAPSULE PO SCH ×2 (10:19→17:39)
[2018-04-12] MEDS: METFORMIN HCL 500 MG TABLET PO SCH ×2 (10:19→17:39)
[2018-04-12] MEDS: ESCITALOPRAM OXALATE 10 MG TABLET PO SCH (10:19)
[2018-04-12] MEDS: ASPIRIN 81 MG TABLET, ENT COATED PO SCH (10:19)
[2018-04-12] MEDS: POTASSIUM CHLORIDE 20 MEQ/15 ML UDCUP PO SCH (10:20)
[2018-04-12] MEDS: FUROSEMIDE INJ/PF 20 MG/2 ML SDV IV SCH ×2 (10:20→21:32)
[2018-04-12] MEDS: INSULIN GLARGINE,HUM.REC.ANLOG 1,000 UNIT/10 ML UNIT SUBCUT SCH ×2 (10:21→22:29)
[2018-04-12] MEDS: ENOXAPARIN SODIUM INJ 40 MG/0.4 ML DISP.SYRIN SUBCUT SCH (10:37)
--- NOTE | 2018-04-12 15:11 | PDOC PROGRESS REPORT ---
Subjective Progress Note for:: 04/12/18 Subjective:: The scrotal swelling is decreasing gradually and pt has no other complaints. We are looking at possible discharge home on tuesday and then he will follow up with urologist on outpatient. Reason For Visit: GENERAL BODY SWELLING WITH NEED FOR IV ANTIBIOTICS Physical Exam Vital Signs: Temp Pulse Resp BP Pulse Ox 97.7 F 76 19 147/54 H 98 04/12/18 10:59 04/12/18 14:00 04/12/18 10:59 04/12/18 10:59 04/12/18 10:59 Intake & Output 04/11/18 04/12/18 04/13/18 06:59 06:59 06:59 Intake Total 995 1475 100 Balance 995 1475 100 Weight 122.4 kg 122.2 kg General appearance: PRESENT: no acute distress, cooperative, morbidly obese, well-nourished Head exam: PRESENT: atraumatic, normocephalic Eye exam: PRESENT: EOMI, PERRLA Ear exam: PRESENT: normal external ear exam, TM's normal bilaterally Mouth exam: PRESENT: neck supple, tongue midline Neck exam: PRESENT: full ROM Respiratory exam: PRESENT: clear to auscultation jhonatan, symmetrical Cardiovascular exam: PRESENT: +S1, +S2 Pulses: PRESENT: +2 pedal pulses bilateral GI/Abdominal exam: PRESENT: normal bowel sounds, soft Rectal exam: PRESENT: deferred Gentrourinary exam: PRESENT: scrotal swelling Extremities exam: PRESENT: full ROM Musculoskeletal exam: PRESENT: full ROM Neurological exam: PRESENT: alert, awake, oriented to person, oriented to place , oriented to time Psychiatric exam: PRESENT: normal mood Results Laboratory Results: 04/08/18 06:15 04/12/18 05:30 04/12/18 05:30 Sodium 141.9 Potassium 3.8 Chloride 98 Carbon Dioxide 32 H Anion Gap 12 BUN 27 H Creatinine 1.16 Est GFR ( Amer) > 60 Est GFR (Non-Af Amer) > 60 Glucose 107 Calcium 8.7 Total Bilirubin 0.7 AST 41 ALT 28 Alkaline Phosphatase 148 H Total Protein 6.2 L Albumin 3.0 L Impressions: Scrotum Ultrasound 04/04/18 00:00 IMPRESSION: No testicular mass or torsion. Epididymitis. Bilateral hydroceles. Generalized scrotal wall thickening. Chest X-Ray 04/07/18 00:00 IMPRESSION: CENTRAL VENOUS ACCESS CATHETER IN APPROPRIATE LOCATION. NO PNEUMOTHORAX. NEW CENTRAL LINE. Abdomen Ultrasound 04/08/18 00:00 IMPRESSION: Trace nonspecific free fluid in the abdomen. Assessment & Plan - Diagnosis (1) Epididymitis Is this a current diagnosis for this admission?: Yes Plan: We will put him on Zosyn 3.375 mg q6h IV; elevate the scrotum. F/u urologist, Dr Puentes. (2) Scrotal swelling Is this a current diagnosis for this admission?: Yes (3) Diabetes mellitus type 2 in obese Is this a current diagnosis for this admission?: Yes Plan: Ct with accucheck QAC, QHS with slidding scale humalog insulin as per [facility] protocol; Metformin 55 iu BID subcut; Metformin 1000mg BID po; 1800 calorie ADA diet. (4) Hypertension Qualifiers: Hypertension type: essential hypertension Qualified Code(s): I10 - Essential (primary) hypertension Is this a current diagnosis for this admission?: Yes Plan: Ct with Atenolol 100 mg qd po; switch to Hydralazine 10 mg TID po; D/C Amlodipine due to worsening body swelling and leg swelling; 2 g sodium diet. (5) Hyperlipidemia Qualifiers: Hyperlipidemia type: unspecified Qualified Code(s): E78.5 - Hyperlipidemia , unspecified Is this a current diagnosis for this admission?: Yes Plan: Ct with Atorvastatin 20 mg qhs po; 200 mg cholesterol diet. (6) Diabetic neuropathy Is this a current diagnosis for this admission?: Yes Plan: Ct with Lyrica 100 mg BID po. (7) Cirrhosis Qualifiers: Hepatic cirrhosis type: other cirrhosis Qualified Code(s): K74.69 - Other cirrhosis of liver Is this a current diagnosis for this admission?: Yes Plan: Ct with Lactulose 30 mls q6h po; Metolazone 5 mg qd po; Lasix 20 mg BID IV. (8) Asthma Qualifiers: Asthma severity: unspecified severity Asthma complication type: uncomplicated Qualified Code(s): J45.909 - Unspecified asthma, uncomplicated Is this a current diagnosis for this admission?: Yes Plan: Ct with Albuterol nebs 3mls q6h prn; Ventolin HFA- 2 puffs q6h prn. (9) Coronary artery disease Qualifiers: Coronary Disease-Associated Artery/Lesion type: [place] artery [place] vs. transplanted heart: [place] heart Associated angina: without angina Qualified Code(s): I25.10 - Atherosclerotic heart disease of [place] coronary artery without angina pectoris Is this a current diagnosis for this admission?: Yes Plan: Ct with Aspirin 81 mg qd po; NTG 0.4mg q 5minutes prn S/L x3. Cardiac diet. (10) Cervicalgia Is this a current diagnosis for this admission?: Yes Plan: Ct with oxycodone 5 mg q6h po prn; Methadone 10 mg TID prn po; Ibuprofen 600 mg q8h po prn. (11) Reflux esophagitis Is this a current diagnosis for this admission?: Yes Plan: Ct with Prevacid 30 mg qd po since Nexium is not in our formulary; Promethazine 25 mg BID prn PO. (12) Narcolepsy Is this a current diagnosis for this admission?: Yes Plan: Ct with Provigil 200 mg qd po. (13) Depression Is this a current diagnosis for this admission?: Yes Plan: Ct with Lexapro 20 mg qd po. (14) Anemia of chronic disease Is this a current diagnosis for this admission?: Yes Plan: Ct with Ferrous sulfate 325 mg BID; monitor CBC daily. (15) DVT prophylaxis Is this a current diagnosis for this admission?: Yes Plan: Ct with Lovenox 40 mg daily subcut; SCD. (16) Hypokalemia Is this a current diagnosis for this admission?: Yes Plan: Ct with KCL 20 MEQ qd po; f/u chemistries daily (17) Oral candidiasis Is this a current diagnosis for this admission?: Yes Plan: Ct with Nystatin swish and swallow 5 ml q6h po.
[2018-04-12] MEDS: LEVOFLOXACIN 500 MG/D5W RTU 500 MG/100 ML RTUPB IV SCH (17:40)
[2018-04-12] MEDS: ATORVASTATIN CALCIUM 20 MG TABLET PO SCH (21:29)
[2018-04-13] MEDS: PIPERACILLIN SODIUM/TAZOBACTAM 3.375 GM in NORMAL SALINE 100 ML IV SCH ×4 (04:45→21:01)
[2018-04-13] MEDS: HYDRALAZINE HCL 10 MG TABLET PO SCH ×3 (05:46→21:17)
[2018-04-13] MEDS: METHADONE HCL 10 MG TABLET PO SCH ×3 (05:46→21:17)
[2018-04-13] MEDS: LACTULOSE SYRUP 20 GM/30 ML UDCUP PO SCH ×4 (05:46→23:43)
[2018-04-13] MEDS: LANSOPRAZOLE 30 MG TAB.RAP.DR PO SCH (05:48)
[2018-04-13] MEDS: NYSTATIN 500000 UNIT/5 ML UDCUP PO SCH ×4 (05:49→23:41)
[2018-04-13 07:08] LABS: ALANINE AMINOTRANSFERASE 26 U/L (21-72); ALKALINE PHOSPHATASE 146 U/L (38-126); ANION GAP 13 (5-19); ASPARTATE AMINO TRANSFERASE 40 U/L (17-59); BILIRUBIN,DIRECT 0.3 mg/dL (0.0-0.4); BILIRUBIN,TOTAL 0.6 mg/dL (0.2-1.3); BLOOD UREA NITROGEN 26 mg/dL (7-20); CALCIUM 8.8 mg/dL (8.4-10.2); CARBON DIOXIDE 31 mmol/L (22-30); CHLORIDE 97 mmol/L (98-107); GLUCOSE 69 mg/dL (75-110); POTASSIUM 3.9 mmol/L (3.6-5.0); SODIUM 140.8 mmol/L (137-145); TOTAL PROTEIN 6.1 g/dL (6.3-8.2)
[2018-04-13] MEDS: FUROSEMIDE INJ/PF 20 MG/2 ML SDV IV SCH ×2 (09:46→21:18)
[2018-04-13] MEDS: ENOXAPARIN SODIUM INJ 40 MG/0.4 ML DISP.SYRIN SUBCUT SCH (09:47)
[2018-04-13] MEDS: METOLAZONE 5 MG TABLET PO SCH (09:47)
[2018-04-13] MEDS: POTASSIUM CHLORIDE 20 MEQ/15 ML UDCUP PO SCH (09:49)
[2018-04-13] MEDS: ATENOLOL 50 MG TABLET PO SCH (09:49)
[2018-04-13] MEDS: DOCUSATE SODIUM 100 MG CAPSULE PO SCH ×2 (09:49→18:34)
[2018-04-13] MEDS: ESCITALOPRAM OXALATE 10 MG TABLET PO SCH (09:49)
[2018-04-13] MEDS: FERROUS SULFATE 325 MG TABLET PO SCH ×2 (09:49→18:34)
[2018-04-13] MEDS: ASPIRIN 81 MG TABLET, ENT COATED PO SCH (09:49)
[2018-04-13] MEDS: METFORMIN HCL 500 MG TABLET PO SCH ×2 (09:50→18:34)
[2018-04-13] MEDS: PREGABALIN 100 MG CAPSULE PO SCH ×2 (09:51→18:34)
[2018-04-13] MEDS: INSULIN GLARGINE,HUM.REC.ANLOG 1,000 UNIT/10 ML UNIT SUBCUT SCH (10:02)
[2018-04-13] MEDS: OXYCODONE HCL IR 5 MG TABLET PO PRN (10:27)
--- NOTE | 2018-04-13 16:12 | PDOC PROGRESS REPORT ---
Subjective Progress Note for:: 04/13/18 Subjective:: He has no new complaints and scrotal swelling is decreasing gradually.We will keep pt on present mgt. Reason For Visit: GENERAL BODY SWELLING WITH NEED FOR IV ANTIBIOTICS Physical Exam Vital Signs: Temp Pulse Resp BP Pulse Ox 98.4 F 70 17 134/53 H 94 04/13/18 12:00 04/13/18 12:00 04/13/18 12:00 04/13/18 12:00 04/13/18 12:00 Intake & Output 04/12/18 04/13/18 04/14/18 06:59 06:59 06:59 Intake Total 1475 1268 384 Balance 1475 1268 384 Weight 122.2 kg 123 kg General appearance: PRESENT: no acute distress, cooperative, morbidly obese, well-nourished Head exam: PRESENT: atraumatic, normocephalic Eye exam: PRESENT: EOMI, PERRLA Ear exam: PRESENT: normal external ear exam, TM's normal bilaterally Mouth exam: PRESENT: neck supple, tongue midline Neck exam: PRESENT: full ROM Respiratory exam: PRESENT: clear to auscultation jhonatan, symmetrical Cardiovascular exam: PRESENT: +S1, +S2 Pulses: PRESENT: +1 pedal pulses bilateral GI/Abdominal exam: PRESENT: normal bowel sounds, soft Rectal exam: PRESENT: deferred Neurological exam: PRESENT: alert, awake, oriented to person, oriented to place , oriented to time Psychiatric exam: PRESENT: normal mood Results Laboratory Results: 04/08/18 06:15 04/13/18 06:30 04/13/18 06:30 Sodium 140.8 Potassium 3.9 Chloride 97 L Carbon Dioxide 31 H Anion Gap 13 BUN 26 H Creatinine 1.33 H Est GFR ( Amer) > 60 Est GFR (Non-Af Amer) 54 L Glucose 69 L Calcium 8.8 Total Bilirubin 0.6 AST 40 ALT 26 Alkaline Phosphatase 146 H Total Protein 6.1 L Albumin 3.0 L Impressions: Scrotum Ultrasound 04/04/18 00:00 IMPRESSION: No testicular mass or torsion. Epididymitis. Bilateral hydroceles. Generalized scrotal wall thickening. Chest X-Ray 04/07/18 00:00 IMPRESSION: CENTRAL VENOUS ACCESS CATHETER IN APPROPRIATE LOCATION. NO PNEUMOTHORAX. NEW CENTRAL LINE. Abdomen Ultrasound 04/08/18 00:00 IMPRESSION: Trace nonspecific free fluid in the abdomen. Assessment & Plan - Diagnosis (1) Epididymitis Is this a current diagnosis for this admission?: Yes Plan: We will put him on Zosyn 3.375 mg q6h IV; Ct with Levaquin 500 mg daily IV; elevate the scrotum. F/u urologist, Dr Puentes. (2) Scrotal swelling Is this a current diagnosis for this admission?: Yes Plan: Gen. body swelling/Scrotal swelling- we will switch him to Lasix 20 mg BID IV; Metolazone 5 mg daily po; strict input/output chart; daily weight; monitor chemistries daily. D/C Amlodipine. (3) Diabetes mellitus type 2 in obese Is this a current diagnosis for this admission?: Yes Plan: Ct with accucheck QAC, QHS with slidding scale humalog insulin as per [facility] protocol; Metformin 55 iu BID subcut; Metformin 1000mg BID po; 1800 calorie ADA diet. (4) Hypertension Qualifiers: Hypertension type: essential hypertension Qualified Code(s): I10 - Essential (primary) hypertension Is this a current diagnosis for this admission?: Yes Plan: Ct with Atenolol 100 mg qd po; switch to Hydralazine 10 mg TID po; D/C Amlodipine due to worsening body swelling and leg swelling; 2 g sodium diet. (5) Hyperlipidemia Qualifiers: Hyperlipidemia type: unspecified Qualified Code(s): E78.5 - Hyperlipidemia , unspecified Is this a current diagnosis for this admission?: Yes Plan: Ct with Atorvastatin 20 mg qhs po; 200 mg cholesterol diet. (6) Diabetic neuropathy Is this a current diagnosis for this admission?: Yes Plan: Ct with Lyrica 100 mg BID po. (7) Cirrhosis Qualifiers: Hepatic cirrhosis type: other cirrhosis Qualified Code(s): K74.69 - Other cirrhosis of liver Is this a current diagnosis for this admission?: Yes Plan: Ct with Lactulose 30 mls q6h po; Metolazone 5 mg qd po; Lasix 20 mg BID IV. (8) Asthma Qualifiers: Asthma severity: unspecified severity Asthma complication type: uncomplicated Qualified Code(s): J45.909 - Unspecified asthma, uncomplicated Is this a current diagnosis for this admission?: Yes Plan: Ct with Albuterol nebs 3mls q6h prn; Ventolin HFA- 2 puffs q6h prn. (9) Coronary artery disease Qualifiers: Coronary Disease-Associated Artery/Lesion type: [place] artery [place] vs. transplanted heart: [place] heart Associated angina: without angina Qualified Code(s): I25.10 - Atherosclerotic heart disease of [place] coronary artery without angina pectoris Is this a current diagnosis for this admission?: Yes Plan: Ct with Aspirin 81 mg qd po; NTG 0.4mg q 5minutes prn S/L x3. Cardiac diet. (10) Cervicalgia Is this a current diagnosis for this admission?: Yes Plan: Ct with oxycodone 5 mg q6h po prn; Methadone 10 mg TID prn po; Ibuprofen 600 mg q8h po prn. (11) Reflux esophagitis Is this a current diagnosis for this admission?: Yes Plan: Ct with Prevacid 30 mg qd po since Nexium is not in our formulary; Promethazine 25 mg BID prn PO. (12) Narcolepsy Is this a current diagnosis for this admission?: Yes Plan: Ct with Provigil 200 mg qd po. (13) Depression Is this a current diagnosis for this admission?: Yes Plan: Ct with Lexapro 20 mg qd po. (14) Anemia of chronic disease Is this a current diagnosis for this admission?: Yes Plan: Ct with Ferrous sulfate 325 mg BID; monitor CBC daily. (15) DVT prophylaxis Is this a current diagnosis for this admission?: Yes Plan: Ct with Lovenox 40 mg daily subcut; SCD. (16) Hypokalemia Is this a current diagnosis for this admission?: Yes Plan: Ct with KCL 20 MEQ qd po; f/u chemistries daily (17) Oral candidiasis Is this a current diagnosis for this admission?: Yes Plan: Ct with Nystatin swish and swallow 5 ml q6h po.
[2018-04-13] MEDS: LEVOFLOXACIN 500 MG/D5W RTU 500 MG/100 ML RTUPB IV SCH (19:16)
[2018-04-13] MEDS: ATORVASTATIN CALCIUM 20 MG TABLET PO SCH (21:16)
[2018-04-13] MEDS ORDERED: INSULIN GLARGINE,HUM.REC.ANLOG 1,000 UNIT/10 ML UNIT SUBCUT SCH (22:00)
[2018-04-14] MEDS: PIPERACILLIN SODIUM/TAZOBACTAM 3.375 GM in NORMAL SALINE 100 ML IV SCH ×4 (04:26→23:19)
[2018-04-14] MEDS: NYSTATIN 500000 UNIT/5 ML UDCUP PO SCH ×3 (05:38→18:42)
[2018-04-14] MEDS: LACTULOSE SYRUP 20 GM/30 ML UDCUP PO SCH ×4 (05:38→23:19)
[2018-04-14] MEDS: HYDRALAZINE HCL 10 MG TABLET PO SCH ×3 (05:39→22:37)
[2018-04-14] MEDS: METHADONE HCL 10 MG TABLET PO SCH ×3 (05:39→22:37)
[2018-04-14] MEDS: LANSOPRAZOLE 30 MG TAB.RAP.DR PO SCH (05:41)
[2018-04-14 06:08] LABS: ALANINE AMINOTRANSFERASE 32 U/L (21-72); ALBUMIN 2.8 g/dL (3.5-5.0); ALKALINE PHOSPHATASE 139 U/L (38-126); ANION GAP 12 (5-19); ASPARTATE AMINO TRANSFERASE 40 U/L (17-59); BILIRUBIN,DIRECT 0.3 mg/dL (0.0-0.4); BILIRUBIN,TOTAL 0.5 mg/dL (0.2-1.3); BLOOD UREA NITROGEN 28 mg/dL (7-20); CALCIUM 8.7 mg/dL (8.4-10.2); CARBON DIOXIDE 30 mmol/L (22-30); CHLORIDE 98 mmol/L (98-107); GLUCOSE 104 mg/dL (75-110); POTASSIUM 4.3 mmol/L (3.6-5.0); SODIUM 140.2 mmol/L (137-145)
[2018-04-14] MEDS: POTASSIUM CHLORIDE 20 MEQ/15 ML UDCUP PO SCH (09:02)
[2018-04-14] MEDS: METFORMIN HCL 500 MG TABLET PO SCH ×2 (09:02→18:42)
[2018-04-14] MEDS: ASPIRIN 81 MG TABLET, ENT COATED PO SCH (09:03)
[2018-04-14] MEDS: DOCUSATE SODIUM 100 MG CAPSULE PO SCH ×2 (09:03→18:42)
[2018-04-14] MEDS: ATENOLOL 50 MG TABLET PO SCH (09:03)
[2018-04-14] MEDS: ESCITALOPRAM OXALATE 10 MG TABLET PO SCH (09:03)
[2018-04-14] MEDS: PREGABALIN 100 MG CAPSULE PO SCH ×2 (09:03→18:42)
[2018-04-14] MEDS: METOLAZONE 5 MG TABLET PO SCH (09:03)
[2018-04-14] MEDS: OXYCODONE HCL IR 5 MG TABLET PO PRN ×2 (09:04→19:24)
[2018-04-14] MEDS: FERROUS SULFATE 325 MG TABLET PO SCH ×2 (09:04→18:42)
[2018-04-14] MEDS: ENOXAPARIN SODIUM INJ 40 MG/0.4 ML DISP.SYRIN SUBCUT SCH (09:14)
[2018-04-14] MEDS: FUROSEMIDE INJ/PF 20 MG/2 ML SDV IV SCH ×2 (09:14→23:19)
[2018-04-14] MEDS: INSULIN LISPRO 100 UNIT/ML 3 ML VIAL SUBCUT PRN ×2 (12:19→18:42)
--- NOTE | 2018-04-14 14:57 | PDOC PROGRESS REPORT ---
Subjective Progress Note for:: 04/14/18 Subjective:: He still has scrotal swelling and had an episode of small blood in stool this am and we will get CBC stat and monitor him closely. He was seen by opthalmologist yesterday, who confirmed that pt has jhonatan. cataract and will see pt on outpatient. He seen by convention planner and pt indicated that he will want to go home on discharge. He will be covered over the weekend by hospitalists. Reason For Visit: GENERAL BODY SWELLING WITH NEED FOR IV ANTIBIOTICS Physical Exam Vital Signs: Temp Pulse Resp BP Pulse Ox 98.0 F 71 16 132/51 H 97 04/14/18 12:07 04/14/18 12:07 04/14/18 12:07 04/14/18 12:07 04/14/18 12:07 Intake & Output 04/13/18 04/14/18 04/15/18 06:59 06:59 06:59 Intake Total 1268 1138 459 Balance 1268 1138 459 Weight 123 kg 122.4 kg General appearance: PRESENT: no acute distress, cooperative, morbidly obese, well-nourished Head exam: PRESENT: atraumatic, normocephalic Eye exam: PRESENT: EOMI, PERRLA Ear exam: PRESENT: normal external ear exam, TM's normal bilaterally Mouth exam: PRESENT: neck supple, tongue midline Respiratory exam: PRESENT: decreased breath sounds, symmetrical Cardiovascular exam: PRESENT: +S1, +S2 Pulses: PRESENT: +1 pedal pulses bilateral GI/Abdominal exam: PRESENT: normal bowel sounds, soft Rectal exam: PRESENT: deferred Gentrourinary exam: PRESENT: scrotal swelling Extremities exam: PRESENT: full ROM, pedal edema Musculoskeletal exam: PRESENT: full ROM Neurological exam: PRESENT: alert, awake, oriented to person, oriented to place , oriented to time Psychiatric exam: PRESENT: normal mood Results Laboratory Results: 04/08/18 06:15 04/14/18 04:20 04/14/18 04:20 Sodium 140.2 Potassium 4.3 Chloride 98 Carbon Dioxide 30 Anion Gap 12 BUN 28 H Creatinine 0.98 Est GFR ( Amer) > 60 Est GFR (Non-Af Amer) > 60 Glucose 104 Calcium 8.7 Total Bilirubin 0.5 AST 40 ALT 32 Alkaline Phosphatase 139 H Total Protein 6.0 L Albumin 2.8 L Impressions: Scrotum Ultrasound 04/04/18 00:00 IMPRESSION: No testicular mass or torsion. Epididymitis. Bilateral hydroceles. Generalized scrotal wall thickening. Chest X-Ray 04/07/18 00:00 IMPRESSION: CENTRAL VENOUS ACCESS CATHETER IN APPROPRIATE LOCATION. NO PNEUMOTHORAX. NEW CENTRAL LINE. Abdomen Ultrasound 04/08/18 00:00 IMPRESSION: Trace nonspecific free fluid in the abdomen. Assessment & Plan - Diagnosis (1) Epididymitis Is this a current diagnosis for this admission?: Yes Plan: We will put him on Zosyn 3.375 mg q6h IV; Ct with Levaquin 750 mg daily po; elevate the scrotum. F/u urologist, Dr Puentes. (2) Scrotal swelling Is this a current diagnosis for this admission?: Yes Plan: Gen. body swelling/Scrotal swelling- we will switch him to Lasix 20 mg BID IV; Metolazone 5 mg daily po; strict input/output chart; daily weight; monitor chemistries daily. D/C Amlodipine. (3) Diabetes mellitus type 2 in obese Is this a current diagnosis for this admission?: Yes Plan: Ct with accucheck QAC, QHS with slidding scale humalog insulin as per [facility] protocol; Lantus insulin 50 iu qhs subcut; Metformin 1000mg BID po; 1800 calorie ADA diet. (4) Hypertension Qualifiers: Hypertension type: essential hypertension Qualified Code(s): I10 - Essential (primary) hypertension Is this a current diagnosis for this admission?: Yes Plan: Ct with Atenolol 100 mg qd po; switch to Hydralazine 10 mg TID po; D/C Amlodipine due to worsening body swelling and leg swelling; 2 g sodium diet. (5) Hyperlipidemia Qualifiers: Hyperlipidemia type: unspecified Qualified Code(s): E78.5 - Hyperlipidemia , unspecified Is this a current diagnosis for this admission?: Yes Plan: Ct with Atorvastatin 20 mg qhs po; 200 mg cholesterol diet. (6) Diabetic neuropathy Is this a current diagnosis for this admission?: Yes Plan: Ct with Lyrica 100 mg BID po. (7) Cirrhosis Qualifiers: Hepatic cirrhosis type: other cirrhosis Qualified Code(s): K74.69 - Other cirrhosis of liver Is this a current diagnosis for this admission?: Yes Plan: Ct with Lactulose 30 mls q6h po; Metolazone 5 mg qd po; Lasix 20 mg BID IV. (8) Asthma Qualifiers: Asthma severity: unspecified severity Asthma complication type: uncomplicated Qualified Code(s): J45.909 - Unspecified asthma, uncomplicated Is this a current diagnosis for this admission?: Yes Plan: Ct with Albuterol nebs 3mls q6h prn; Ventolin HFA- 2 puffs q6h prn. (9) Coronary artery disease Qualifiers: Coronary Disease-Associated Artery/Lesion type: [place] artery [place] vs. transplanted heart: [place] heart Associated angina: without angina Qualified Code(s): I25.10 - Atherosclerotic heart disease of [place] coronary artery without angina pectoris Is this a current diagnosis for this admission?: Yes Plan: Ct with Aspirin 81 mg qd po; NTG 0.4mg q 5minutes prn S/L x3. Cardiac diet. (10) Cervicalgia Is this a current diagnosis for this admission?: Yes Plan: Ct with oxycodone 5 mg q6h po prn; Methadone 10 mg TID prn po; Ibuprofen 600 mg q8h po prn. (11) Reflux esophagitis Is this a current diagnosis for this admission?: Yes Plan: Ct with Prevacid 30 mg qd po since Nexium is not in our formulary; Promethazine 25 mg BID prn PO. (12) Narcolepsy Is this a current diagnosis for this admission?: Yes Plan: Ct with Provigil 200 mg qd po. (13) Depression Is this a current diagnosis for this admission?: Yes Plan: Ct with Lexapro 20 mg qd po. (14) Anemia of chronic disease Is this a current diagnosis for this admission?: Yes Plan: Ct with Ferrous sulfate 325 mg BID; monitor CBC daily. (15) DVT prophylaxis Is this a current diagnosis for this admission?: Yes Plan: Ct with Lovenox 40 mg daily subcut; SCD. (16) Hypokalemia Is this a current diagnosis for this admission?: Yes Plan: Ct with KCL 20 MEQ qd po; f/u chemistries daily (17) Oral candidiasis Is this a current diagnosis for this admission?: Yes Plan: Ct with Nystatin swish and swallow 5 ml q6h po.
[2018-04-14 16:05] LABS: ABSOLUTE BASOPHILS # (AUTO) 0.1 10^3/uL (0.0-0.2); ABSOLUTE EOSINOPHILS # (AUTO) 0.1 10^3/uL (0.0-0.6); ABSOLUTE LYMPHOCYTES (AUTO) 1.5 10^3/uL (0.5-4.7); ABSOLUTE MONOCYTES (AUTO) 0.7 10^3/uL (0.1-1.4); BASOPHILS % (AUTO) 1.2 % (0-2); EOSINOPHILS % (AUTO) 2.5 % (0-6); HEMATOCRIT 22.5 % (37.9-51.0); LYMPHOCYTES % (AUTO) 27.3 % (13-45); MEAN CORPUSCULAR HEMOGLOBIN 28.5 pg (27.0-33.4); MEAN CORPUSCULAR HGB CONC 32.9 g/dL (32.0-36.0); MEAN CORPUSCULAR VOLUME 87 fl (80-97); MONOCYTES % (AUTO) 12.9 % (3-13); PLATELET COUNT 117 10^3/uL (150-450); RED CELL DISTRIBUTION WIDTH 18.9 % (11.5-14.0); SEGMENTED NEUTROPHILS % (AUTO) 56.1 % (42-78); TOTAL CELLS COUNTED % (AUTO) 100 %; WHITE BLOOD COUNT 5.4 10^3/uL (4.0-10.5)
[2018-04-14 16:17] LABS: HEMOGLOBIN 7.4 g/dL (13.5-17.0)
[2018-04-14] MEDS ORDERED: FUROSEMIDE INJ/PF 20 MG/2 ML SDV IV PRN (17:00)
[2018-04-14] MEDS: LEVOFLOXACIN 750 MG TABLET PO SCH (22:36)
[2018-04-14] MEDS: ATORVASTATIN CALCIUM 20 MG TABLET PO SCH (22:36)
[2018-04-14] MEDS: INSULIN GLARGINE,HUM.REC.ANLOG 1,000 UNIT/10 ML UNIT SUBCUT SCH (22:40)
[2018-04-15] MEDS: NYSTATIN 500000 UNIT/5 ML UDCUP PO SCH ×4 (03:00→17:41)
[2018-04-15] MEDS: OXYCODONE HCL IR 5 MG TABLET PO PRN ×3 (03:02→22:36)
[2018-04-15] MEDS: PIPERACILLIN SODIUM/TAZOBACTAM 3.375 GM in NORMAL SALINE 100 ML IV SCH ×4 (05:01→22:34)
[2018-04-15] MEDS: HYDRALAZINE HCL 10 MG TABLET PO SCH ×3 (05:03→22:35)
[2018-04-15] MEDS: LANSOPRAZOLE 30 MG TAB.RAP.DR PO SCH (05:03)
[2018-04-15] MEDS: METHADONE HCL 10 MG TABLET PO SCH ×5 (05:03→22:34)
[2018-04-15] MEDS: LACTULOSE SYRUP 20 GM/30 ML UDCUP PO SCH ×4 (05:04→23:28)
[2018-04-15 07:03] LABS: ALANINE AMINOTRANSFERASE 33 U/L (21-72); ALBUMIN 3.1 g/dL (3.5-5.0); ALKALINE PHOSPHATASE 147 U/L (38-126); ANION GAP 12 (5-19); ASPARTATE AMINO TRANSFERASE 36 U/L (17-59); BILIRUBIN,DIRECT 0.3 mg/dL (0.0-0.4); BLOOD UREA NITROGEN 28 mg/dL (7-20); CALCIUM 8.6 mg/dL (8.4-10.2); CARBON DIOXIDE 29 mmol/L (22-30); CHLORIDE 100 mmol/L (98-107); GLUCOSE 189 mg/dL (75-110); POTASSIUM 4.3 mmol/L (3.6-5.0); SODIUM 141.2 mmol/L (137-145)
[2018-04-15 07:31] LABS: ABSOLUTE BASOPHILS # (AUTO) 0.1 10^3/uL (0.0-0.2); ABSOLUTE EOSINOPHILS # (AUTO) 0.2 10^3/uL (0.0-0.6); ABSOLUTE LYMPHOCYTES (AUTO) 1.4 10^3/uL (0.5-4.7); ABSOLUTE MONOCYTES (AUTO) 0.5 10^3/uL (0.1-1.4); ABSOLUTE NEUT (AUTO) 3.3 10^3/uL (1.7-8.2); BASOPHILS % (AUTO) 1.1 % (0-2); EOSINOPHILS % (AUTO) 2.8 % (0-6); HEMOGLOBIN 9.2 g/dL (13.5-17.0); LYMPHOCYTES % (AUTO) 25.9 % (13-45); MEAN CORPUSCULAR HEMOGLOBIN 29.5 pg (27.0-33.4); MEAN CORPUSCULAR HGB CONC 33.9 g/dL (32.0-36.0); MEAN CORPUSCULAR VOLUME 87 fl (80-97); MONOCYTES % (AUTO) 9.9 % (3-13); PLATELET COUNT 119 10^3/uL (150-450); RED CELL DISTRIBUTION WIDTH 17.7 % (11.5-14.0); SEGMENTED NEUTROPHILS % (AUTO) 60.3 % (42-78); TOTAL CELLS COUNTED % (AUTO) 100 %; WHITE BLOOD COUNT 5.5 10^3/uL (4.0-10.5)
[2018-04-15] MEDS: METFORMIN HCL 500 MG TABLET PO SCH ×2 (08:46→17:35)
[2018-04-15] MEDS: INSULIN LISPRO 100 UNIT/ML 3 ML VIAL SUBCUT PRN ×2 (08:47→17:48)
[2018-04-15] MEDS: FERROUS SULFATE 325 MG TABLET PO SCH ×2 (08:47→17:33)
[2018-04-15] MEDS: METOLAZONE 5 MG TABLET PO SCH (09:15)
[2018-04-15] MEDS: DOCUSATE SODIUM 100 MG CAPSULE PO SCH ×2 (09:15→17:34)
[2018-04-15] MEDS: ATENOLOL 50 MG TABLET PO SCH (09:16)
[2018-04-15] MEDS: ASPIRIN 81 MG TABLET, ENT COATED PO SCH (09:17)
[2018-04-15] MEDS: ESCITALOPRAM OXALATE 10 MG TABLET PO SCH (09:17)
[2018-04-15] MEDS: FUROSEMIDE INJ/PF 20 MG/2 ML SDV IV SCH ×2 (09:17→19:00)
[2018-04-15] MEDS: ENOXAPARIN SODIUM INJ 40 MG/0.4 ML DISP.SYRIN SUBCUT SCH (09:18)
[2018-04-15] MEDS: PREGABALIN 100 MG CAPSULE PO SCH ×2 (12:14→17:34)
[2018-04-15] MEDS: POTASSIUM CHLORIDE 20 MEQ/15 ML UDCUP PO SCH (12:15)
[2018-04-15] MEDS: SPIRONOLACTONE 25 MG TABLET PO SCH (13:17)
--- NOTE | 2018-04-15 17:54 | PDOC PROGRESS REPORT ---
Subjective Progress Note for:: 04/15/18 Subjective:: The patient is without new complaints. He is upset that his pain doctor is trying to take him off of his methadone. Reason For Visit: GENERAL BODY SWELLING WITH NEED FOR IV ANTIBIOTICS Physical Exam Vital Signs: Temp Pulse Resp BP Pulse Ox 98 F 72 16 137/56 H 96 04/15/18 12:00 04/15/18 14:00 04/15/18 12:00 04/15/18 12:00 04/15/18 12:00 Intake & Output 04/14/18 04/15/18 04/16/18 06:59 06:59 06:59 Intake Total 1138 1559 100 Balance 1138 1559 100 Weight 122.4 kg 121.3 kg General appearance: PRESENT: no acute distress, cooperative, morbidly obese Respiratory exam: PRESENT: other - No increased work of breathing. No wheezes, rales, or rhonchi. No tactile fremitus. Cardiovascular exam: PRESENT: RRR. ABSENT: gallop, rubs, systolic murmur Pulses: PRESENT: other - Diminished distal pulses. GI/Abdominal exam: PRESENT: normal bowel sounds, soft. ABSENT: hernia, mass, organolmegaly, tenderness Extremities exam: ABSENT: clubbing, joint swelling, pedal edema, tenderness Musculoskeletal exam: PRESENT: normal inspection. ABSENT: deformity, dislocation, tenderness Neurological exam: PRESENT: alert, awake, oriented to person, oriented to place , oriented to time, oriented to situation, CN II-XII grossly intact. ABSENT: motor sensory deficit Psychiatric exam: PRESENT: appropriate affect, normal mood Skin exam: PRESENT: dry, intact, warm Results Laboratory Results: 04/15/18 06:30 04/15/18 06:30 04/14/18 04/15/18 04/15/18 17:20 06:30 06:30 WBC 5.5 RBC 3.10 L Hgb 9.2 L Hct 27.0 L MCV 87 MCH 29.5 MCHC 33.9 RDW 17.7 H Plt Count 119 L Seg Neutrophils % 60.3 Lymphocytes % 25.9 Monocytes % 9.9 Eosinophils % 2.8 Basophils % 1.1 Absolute Neutrophils 3.3 Absolute Lymphocytes 1.4 Absolute Monocytes 0.5 Absolute Eosinophils 0.2 Absolute Basophils 0.1 Sodium 141.2 Potassium 4.3 Chloride 100 Carbon Dioxide 29 Anion Gap 12 BUN 28 H Creatinine 1.09 Est GFR ( Amer) > 60 Est GFR (Non-Af Amer) > 60 Glucose 189 H Calcium 8.6 Total Bilirubin 1.0 AST 36 ALT 33 Alkaline Phosphatase 147 H Total Protein 6.0 L Albumin 3.1 L Blood Type A POSITIVE Antibody Screen NEGATIVE 04/15/18 04/15/18 06:30 06:30 WBC 5.5 RBC 3.10 L Hgb 9.2 L Hct 27.0 L MCV 87 MCH 29.5 MCHC 33.9 RDW 17.7 H Plt Count 119 L Seg Neutrophils % 60.3 Lymphocytes % 25.9 Monocytes % 9.9 Eosinophils % 2.8 Basophils % 1.1 Absolute Neutrophils 3.3 Absolute Lymphocytes 1.4 Absolute Monocytes 0.5 Absolute Eosinophils 0.2 Absolute Basophils 0.1 Sodium 141.2 Potassium 4.3 Chloride 100 Carbon Dioxide 29 Anion Gap 12 BUN 28 H Creatinine 1.09 Est GFR ( Amer) > 60 Est GFR (Non-Af Amer) > 60 Glucose 189 H Calcium 8.6 Total Bilirubin 1.0 Direct Bilirubin 0.3 AST 36 ALT 33 Alkaline Phosphatase 147 H Total Protein 6.0 L Albumin 3.1 L Impressions: Scrotum Ultrasound 04/04/18 00:00 IMPRESSION: No testicular mass or torsion. Epididymitis. Bilateral hydroceles. Generalized scrotal wall thickening. Chest X-Ray 04/07/18 00:00 IMPRESSION: CENTRAL VENOUS ACCESS CATHETER IN APPROPRIATE LOCATION. NO PNEUMOTHORAX. NEW CENTRAL LINE. Abdomen Ultrasound 04/08/18 00:00 IMPRESSION: Trace nonspecific free fluid in the abdomen. Assessment & Plan - Diagnosis (1) Epididymitis Is this a current diagnosis for this admission?: Yes Plan: Continue IV antibiotics. (2) Generalized edema Is this a current diagnosis for this admission?: Yes Plan: Diuresis with lasix, but still a positive fluid balance. Increase laxis to 40 bid and start spironolactone. (3) Oral candidiasis Is this a current diagnosis for this admission?: Yes Plan: Nystatin swish and spit. (4) Scrotal swelling Is this a current diagnosis for this admission?: Yes Plan: Secondary to hepatic cirrhosis and CHF. Diuresis. (5) Anemia of chronic disease Is this a current diagnosis for this admission?: Yes Plan: Monitor and transfuse as necessary. (6) Chronic hepatitis C Qualifiers: Hepatic coma status: without hepatic coma Qualified Code(s): B18.2 - Chronic viral hepatitis C Is this a current diagnosis for this admission?: Yes Plan: Noted. (7) Cirrhosis Qualifiers: Hepatic cirrhosis type: other cirrhosis Qualified Code(s): K74.69 - Other cirrhosis of liver Is this a current diagnosis for this admission?: Yes Plan: Likely behind the patient's anasarca. Will attempt diuresis. (8) Coronary artery disease Qualifiers: Coronary Disease-Associated Artery/Lesion type: [place] artery [place] vs. transplanted heart: [place] heart Associated angina: without angina Qualified Code(s): I25.10 - Atherosclerotic heart disease of [place] coronary artery without angina pectoris Is this a current diagnosis for this admission?: Yes Plan: Continue home medications. (9) Methadone dependence Is this a current diagnosis for this admission?: Yes Plan: Continue home dose of methadone. (10) Diastolic CHF, acute on chronic Is this a current diagnosis for this admission?: Yes Plan: Diuresis and spironolactone. - Time Time Spent with patient: 25-34 minutes Medications reviewed and adjusted accordingly: Yes
[2018-04-15] MEDS ORDERED: METHADONE HCL 10 MG TABLET PO SCH (22:00)
[2018-04-15] MEDS: LEVOFLOXACIN 750 MG TABLET PO SCH (22:34)
[2018-04-15] MEDS: INSULIN GLARGINE,HUM.REC.ANLOG 1,000 UNIT/10 ML UNIT SUBCUT SCH (22:36)
[2018-04-15] MEDS: ATORVASTATIN CALCIUM 20 MG TABLET PO SCH (22:36)
[2018-04-16] MEDS: NYSTATIN 500000 UNIT/5 ML UDCUP PO SCH ×3 (05:18→19:03)
[2018-04-16] MEDS: PIPERACILLIN SODIUM/TAZOBACTAM 3.375 GM in NORMAL SALINE 100 ML IV SCH ×4 (05:22→22:01)
[2018-04-16] MEDS: LACTULOSE SYRUP 20 GM/30 ML UDCUP PO SCH ×4 (05:22→23:30)
[2018-04-16] MEDS: METHADONE HCL 10 MG TABLET PO SCH ×3 (05:23→22:01)
[2018-04-16] MEDS: HYDRALAZINE HCL 10 MG TABLET PO SCH ×3 (05:23→22:01)
[2018-04-16] MEDS: LANSOPRAZOLE 30 MG TAB.RAP.DR PO SCH (05:23)
[2018-04-16 07:35] LABS: ALANINE AMINOTRANSFERASE 30 U/L (21-72); ALBUMIN 2.9 g/dL (3.5-5.0); ALKALINE PHOSPHATASE 145 U/L (38-126); ANION GAP 9 (5-19); ASPARTATE AMINO TRANSFERASE 37 U/L (17-59); BILIRUBIN,DIRECT 0.4 mg/dL (0.0-0.4); BILIRUBIN,TOTAL 0.7 mg/dL (0.2-1.3); BLOOD UREA NITROGEN 25 mg/dL (7-20); CALCIUM 8.7 mg/dL (8.4-10.2); CARBON DIOXIDE 31 mmol/L (22-30); CHLORIDE 99 mmol/L (98-107); GLUCOSE 172 mg/dL (75-110); POTASSIUM 4.4 mmol/L (3.6-5.0); SODIUM 138.9 mmol/L (137-145)
[2018-04-16] MEDS: METFORMIN HCL 500 MG TABLET PO SCH ×2 (08:59→16:54)
[2018-04-16] MEDS: FERROUS SULFATE 325 MG TABLET PO SCH ×2 (08:59→19:02)
[2018-04-16] MEDS: FUROSEMIDE INJ/PF 20 MG/2 ML SDV IV SCH ×2 (09:13→19:01)
[2018-04-16] MEDS: OXYCODONE HCL IR 5 MG TABLET PO PRN ×2 (09:14→22:02)
[2018-04-16] MEDS: POTASSIUM CHLORIDE 20 MEQ/15 ML UDCUP PO SCH (09:14)
[2018-04-16] MEDS: DOCUSATE SODIUM 100 MG CAPSULE PO SCH ×2 (09:15→19:02)
[2018-04-16] MEDS: ASPIRIN 81 MG TABLET, ENT COATED PO SCH (09:15)
[2018-04-16] MEDS: METOLAZONE 5 MG TABLET PO SCH (09:15)
[2018-04-16] MEDS: PREGABALIN 100 MG CAPSULE PO SCH ×2 (09:15→19:02)
[2018-04-16] MEDS: ESCITALOPRAM OXALATE 10 MG TABLET PO SCH (09:15)
[2018-04-16] MEDS: ATENOLOL 50 MG TABLET PO SCH (09:15)
[2018-04-16] MEDS: INSULIN LISPRO 100 UNIT/ML 3 ML VIAL SUBCUT PRN ×2 (09:16→19:09)
[2018-04-16] MEDS: SPIRONOLACTONE 25 MG TABLET PO SCH (09:24)
[2018-04-16] MEDS: ENOXAPARIN SODIUM INJ 40 MG/0.4 ML DISP.SYRIN SUBCUT SCH (09:27)
--- NOTE | 2018-04-16 16:32 | PDOC PROGRESS REPORT ---
Subjective Progress Note for:: 04/16/18 Subjective:: The patient is without new complaints. No new complaints. Reason For Visit: GENERAL BODY SWELLING WITH NEED FOR IV ANTIBIOTICS Physical Exam Vital Signs: Temp Pulse Resp BP Pulse Ox 98.6 F 72 16 123/57 L 97 04/16/18 15:52 04/16/18 15:52 04/16/18 15:52 04/16/18 15:52 04/16/18 15:52 Intake & Output 04/15/18 04/16/18 04/17/18 06:59 06:59 06:59 Intake Total 1559 1803 100 Balance 1559 1803 100 Weight 121.3 kg 122.6 kg General appearance: PRESENT: no acute distress, cooperative, disheveled Respiratory exam: PRESENT: rhonchi, wheezes, other - Positive for increased work of breathing.. ABSENT: rales Cardiovascular exam: PRESENT: RRR. ABSENT: gallop, rubs, systolic murmur GI/Abdominal exam: PRESENT: normal bowel sounds, soft. ABSENT: distended, hernia, organolmegaly, tenderness Neurological exam: PRESENT: alert, awake, oriented to person, oriented to place , oriented to time, oriented to situation, CN II-XII grossly intact. ABSENT: motor sensory deficit Skin exam: PRESENT: dry, intact, warm Results Laboratory Results: 04/15/18 06:30 04/16/18 06:25 04/16/18 06:25 Sodium 138.9 Potassium 4.4 Chloride 99 Carbon Dioxide 31 H Anion Gap 9 BUN 25 H Creatinine 1.05 Est GFR ( Amer) > 60 Est GFR (Non-Af Amer) > 60 Glucose 172 H Calcium 8.7 Total Bilirubin 0.7 AST 37 ALT 30 Alkaline Phosphatase 145 H Total Protein 6.0 L Albumin 2.9 L Impressions: Scrotum Ultrasound 04/04/18 00:00 IMPRESSION: No testicular mass or torsion. Epididymitis. Bilateral hydroceles. Generalized scrotal wall thickening. Chest X-Ray 04/07/18 00:00 IMPRESSION: CENTRAL VENOUS ACCESS CATHETER IN APPROPRIATE LOCATION. NO PNEUMOTHORAX. NEW CENTRAL LINE. Abdomen Ultrasound 04/08/18 00:00 IMPRESSION: Trace nonspecific free fluid in the abdomen. Assessment & Plan - Diagnosis (1) Epididymitis Is this a current diagnosis for this admission?: Yes Plan: Continue IV antibiotics. (2) Generalized edema Is this a current diagnosis for this admission?: Yes Plan: Diuresis with lasix, but still a positive fluid balance. Increase laxis to 40 bid and start spironolactone. (3) Oral candidiasis Is this a current diagnosis for this admission?: Yes Plan: Nystatin swish and spit. (4) Scrotal swelling Is this a current diagnosis for this admission?: Yes Plan: Secondary to hepatic cirrhosis and CHF. Diuresis. (5) Anemia of chronic disease Is this a current diagnosis for this admission?: Yes Plan: Monitor and transfuse as necessary. (6) Chronic hepatitis C Qualifiers: Hepatic coma status: without hepatic coma Qualified Code(s): B18.2 - Chronic viral hepatitis C Is this a current diagnosis for this admission?: Yes Plan: Noted. (7) Cirrhosis Qualifiers: Hepatic cirrhosis type: other cirrhosis Qualified Code(s): K74.69 - Other cirrhosis of liver Is this a current diagnosis for this admission?: Yes Plan: Likely behind the patient's anasarca. Will attempt diuresis by increasing lasix and adding spironolactone. (8) Coronary artery disease Qualifiers: Coronary Disease-Associated Artery/Lesion type: [place] artery [place] vs. transplanted heart: [place] heart Associated angina: without angina Qualified Code(s): I25.10 - Atherosclerotic heart disease of [place] coronary artery without angina pectoris Is this a current diagnosis for this admission?: Yes Plan: Continue home medications. (9) Methadone dependence Is this a current diagnosis for this admission?: Yes Plan: Continue home dose of methadone. (10) Diastolic CHF, acute on chronic Is this a current diagnosis for this admission?: Yes Plan: Diuresis and spironolactone. - Time Time Spent with patient: 25-34 minutes Medications reviewed and adjusted accordingly: Yes
[2018-04-16] MEDS ORDERED: LACTULOSE SYRUP 20 GM/30 ML UDCUP ONE (16:50)
[2018-04-16] MEDS: LEVOFLOXACIN 750 MG TABLET PO SCH (22:01)
[2018-04-16] MEDS: ATORVASTATIN CALCIUM 20 MG TABLET PO SCH (22:01)
[2018-04-16] MEDS: INSULIN GLARGINE,HUM.REC.ANLOG 1,000 UNIT/10 ML UNIT SUBCUT SCH (22:02)
[2018-04-17] MEDS: NYSTATIN 500000 UNIT/5 ML UDCUP PO SCH ×3 (00:54→14:34)
[2018-04-17] MEDS: PIPERACILLIN SODIUM/TAZOBACTAM 3.375 GM in NORMAL SALINE 100 ML IV SCH ×4 (03:12→21:27)
[2018-04-17] MEDS: OXYCODONE HCL IR 5 MG TABLET PO PRN ×2 (03:47→17:36)
[2018-04-17] MEDS: HYDRALAZINE HCL 10 MG TABLET PO SCH ×3 (05:08→21:27)
[2018-04-17] MEDS: LACTULOSE SYRUP 20 GM/30 ML UDCUP PO SCH ×4 (05:08→23:16)
[2018-04-17] MEDS: LANSOPRAZOLE 30 MG TAB.RAP.DR PO SCH (05:08)
[2018-04-17] MEDS: METHADONE HCL 10 MG TABLET PO SCH ×3 (05:08→21:26)
[2018-04-17 06:05] LABS: ANION GAP 8 (5-19); BLOOD UREA NITROGEN 22 mg/dL (7-20); CALCIUM 8.4 mg/dL (8.4-10.2); CARBON DIOXIDE 29 mmol/L (22-30); CHLORIDE 102 mmol/L (98-107); GLUCOSE 103 mg/dL (75-110); POTASSIUM 4.1 mmol/L (3.6-5.0); SODIUM 139.1 mmol/L (137-145)
[2018-04-17] MEDS: METFORMIN HCL 500 MG TABLET PO SCH ×2 (08:57→21:05)
[2018-04-17] MEDS: FERROUS SULFATE 325 MG TABLET PO SCH ×2 (08:57→21:06)
[2018-04-17] MEDS: FUROSEMIDE INJ/PF 20 MG/2 ML SDV IV SCH ×2 (11:10→21:07)
[2018-04-17] MEDS: POTASSIUM CHLORIDE 20 MEQ/15 ML UDCUP PO SCH (14:30)
[2018-04-17] MEDS: METOLAZONE 5 MG TABLET PO SCH (14:31)
[2018-04-17] MEDS: DOCUSATE SODIUM 100 MG CAPSULE PO SCH ×2 (14:31→21:06)
[2018-04-17] MEDS: SPIRONOLACTONE 25 MG TABLET PO SCH (14:31)
[2018-04-17] MEDS: ASPIRIN 81 MG TABLET, ENT COATED PO SCH (14:32)
[2018-04-17] MEDS: PREGABALIN 100 MG CAPSULE PO SCH ×2 (14:32→21:08)
[2018-04-17] MEDS: ATENOLOL 50 MG TABLET PO SCH (14:32)
[2018-04-17] MEDS: ENOXAPARIN SODIUM INJ 40 MG/0.4 ML DISP.SYRIN SUBCUT SCH (14:33)
[2018-04-17] MEDS: ESCITALOPRAM OXALATE 10 MG TABLET PO SCH (14:33)
--- NOTE | 2018-04-17 16:02 | PDOC PROGRESS REPORT ---
Subjective Progress Note for:: 04/17/18 Subjective:: He had nausea and was given Promethazine with good effect. The swelling including scrotal is decreased. We anticipate possible discharge home on tuesday Reason For Visit: GENERAL BODY SWELLING WITH NEED FOR IV ANTIBIOTICS Physical Exam Vital Signs: Temp Pulse Resp BP Pulse Ox 97.8 F 69 16 122/55 L 98 04/17/18 07:13 04/17/18 14:00 04/17/18 07:13 04/17/18 07:13 04/17/18 07:13 Intake & Output 04/16/18 04/17/18 04/18/18 06:59 06:59 06:59 Intake Total 1803 1759 100 Output Total 638 Balance 1803 1121 100 Weight 122.6 kg 121.4 kg General appearance: PRESENT: no acute distress, cooperative, morbidly obese, well-nourished Head exam: PRESENT: atraumatic, normocephalic Eye exam: PRESENT: EOMI, PERRLA Mouth exam: PRESENT: neck supple, tongue midline Respiratory exam: PRESENT: clear to auscultation jhonatan, symmetrical Cardiovascular exam: PRESENT: +S1, +S2 Pulses: PRESENT: +1 pedal pulses bilateral GI/Abdominal exam: PRESENT: distended, normal bowel sounds, soft Rectal exam: PRESENT: deferred Extremities exam: PRESENT: full ROM Musculoskeletal exam: PRESENT: full ROM Neurological exam: PRESENT: alert, awake, oriented to person, oriented to place , oriented to time Psychiatric exam: PRESENT: normal mood Results Laboratory Results: 04/15/18 06:30 04/17/18 05:10 04/17/18 05:10 Sodium 139.1 Potassium 4.1 Chloride 102 Carbon Dioxide 29 Anion Gap 8 BUN 22 H Creatinine 0.86 Est GFR ( Amer) > 60 Est GFR (Non-Af Amer) > 60 Glucose 103 Calcium 8.4 Impressions: Scrotum Ultrasound 04/04/18 00:00 IMPRESSION: No testicular mass or torsion. Epididymitis. Bilateral hydroceles. Generalized scrotal wall thickening. Chest X-Ray 04/07/18 00:00 IMPRESSION: CENTRAL VENOUS ACCESS CATHETER IN APPROPRIATE LOCATION. NO PNEUMOTHORAX. NEW CENTRAL LINE. Abdomen Ultrasound 04/08/18 00:00 IMPRESSION: Trace nonspecific free fluid in the abdomen. Assessment & Plan - Diagnosis (1) Epididymitis Is this a current diagnosis for this admission?: Yes Plan: We will put him on Zosyn 3.375 mg q6h IV; Ct with Levaquin 750 mg daily po; elevate the scrotum. F/u urologist, Dr Puentes. (2) Scrotal swelling Is this a current diagnosis for this admission?: Yes Plan: Gen. body swelling/Scrotal swelling- we will switch him to Lasix 20 mg BID IV; Metolazone 5 mg daily po; strict input/output chart; daily weight; monitor chemistries daily. D/C Amlodipine. (3) Diabetes mellitus type 2 in obese Is this a current diagnosis for this admission?: Yes Plan: Ct with accucheck QAC, QHS with slidding scale humalog insulin [facility]; Lantus insulin 50 iu qhs subcut; Metformin 1000mg BID po; 1800 calorie ADA diet. (4) Hypertension Qualifiers: Hypertension type: essential hypertension Qualified Code(s): I10 - Essential (primary) hypertension Is this a current diagnosis for this admission?: Yes Plan: Ct with Atenolol 100 mg qd po; switch to Hydralazine 10 mg TID po; D/C Amlodipine due to worsening body swelling and leg swelling; 2 g sodium diet. (5) Hyperlipidemia Qualifiers: Hyperlipidemia type: unspecified Qualified Code(s): E78.5 - Hyperlipidemia , unspecified Is this a current diagnosis for this admission?: Yes Plan: Ct with Atorvastatin 20 mg qhs po; 200 mg cholesterol diet. (6) Diabetic neuropathy Is this a current diagnosis for this admission?: Yes Plan: Ct with Lyrica 100 mg BID po. (7) Cirrhosis Qualifiers: Hepatic cirrhosis type: other cirrhosis Qualified Code(s): K74.69 - Other cirrhosis of liver Is this a current diagnosis for this admission?: Yes Plan: Ct with Lactulose 30 mls q6h po; Metolazone 5 mg qd po; Lasix 40 mg BID IV; Spironolactone 25 mg qd po. (8) Asthma Qualifiers: Asthma severity: unspecified severity Asthma complication type: uncomplicated Qualified Code(s): J45.909 - Unspecified asthma, uncomplicated Is this a current diagnosis for this admission?: Yes Plan: Ct with Albuterol nebs 3mls q6h prn; Ventolin HFA- 2 puffs q6h prn. (9) Coronary artery disease Qualifiers: Coronary Disease-Associated Artery/Lesion type: [place] artery [place] vs. transplanted heart: [place] heart Associated angina: without angina Qualified Code(s): I25.10 - Atherosclerotic heart disease of [place] coronary artery without angina pectoris Is this a current diagnosis for this admission?: Yes Plan: Ct with Aspirin 81 mg qd po; NTG 0.4mg q 5minutes prn S/L x3. Cardiac diet. (10) Cervicalgia Is this a current diagnosis for this admission?: Yes Plan: Ct with oxycodone 5 mg q6h po prn; Methadone 10 mg TID prn po; Ibuprofen 600 mg q8h po prn. (11) Reflux esophagitis Is this a current diagnosis for this admission?: Yes Plan: Ct with Prevacid 30 mg qd po since Nexium is not in our formulary; Promethazine 25 mg BID prn PO. (12) Narcolepsy Is this a current diagnosis for this admission?: Yes Plan: Ct with Provigil 200 mg qd po. (13) Depression Is this a current diagnosis for this admission?: Yes Plan: Ct with Lexapro 20 mg qd po. (14) Anemia of chronic disease Is this a current diagnosis for this admission?: Yes Plan: Ct with Ferrous sulfate 325 mg BID; Pt got 2 units of PRBC on 2017.Monitor CBC daily. (15) DVT prophylaxis Is this a current diagnosis for this admission?: Yes Plan: Ct with Lovenox 40 mg daily subcut; SCD. (16) Hypokalemia Is this a current diagnosis for this admission?: Yes Plan: Ct with KCL 20 MEQ qd po; f/u chemistries daily (17) Oral candidiasis Is this a current diagnosis for this admission?: Yes Plan: Ct with Nystatin swish and swallow 5 ml q6h po.
[2018-04-17 19:12] LABS: HEMOGLOBIN 9.2 g/dL (13.5-17.0); MEAN CORPUSCULAR HEMOGLOBIN 28.8 pg (27.0-33.4); MEAN CORPUSCULAR HGB CONC 32.8 g/dL (32.0-36.0); MEAN CORPUSCULAR VOLUME 88 fl (80-97); PLATELET COUNT 133 10^3/uL (150-450); RED BLOOD COUNT 3.19 10^6/uL (4.35-5.55); RED CELL DISTRIBUTION WIDTH 18.3 % (11.5-14.0); WHITE BLOOD COUNT 5.8 10^3/uL (4.0-10.5)
[2018-04-17] MEDS: ATORVASTATIN CALCIUM 20 MG TABLET PO SCH (21:27)
[2018-04-17] MEDS: LEVOFLOXACIN 750 MG TABLET PO SCH (21:27)
[2018-04-17] MEDS: INSULIN GLARGINE,HUM.REC.ANLOG 1,000 UNIT/10 ML UNIT SUBCUT SCH (23:17)
[2018-04-18] MEDS: PIPERACILLIN SODIUM/TAZOBACTAM 3.375 GM in NORMAL SALINE 100 ML IV SCH ×4 (04:25→21:01)
[2018-04-18] MEDS: LANSOPRAZOLE 30 MG TAB.RAP.DR PO SCH (05:03)
[2018-04-18] MEDS: LACTULOSE SYRUP 20 GM/30 ML UDCUP PO SCH ×4 (05:03→23:14)
[2018-04-18] MEDS: METHADONE HCL 10 MG TABLET PO SCH ×3 (05:03→21:03)
[2018-04-18] MEDS: HYDRALAZINE HCL 10 MG TABLET PO SCH ×3 (05:03→21:02)
[2018-04-18 06:30] LABS: HEMATOCRIT 27.4 % (37.9-51.0); HEMOGLOBIN 9.2 g/dL (13.5-17.0); MEAN CORPUSCULAR HEMOGLOBIN 29.3 pg (27.0-33.4); MEAN CORPUSCULAR HGB CONC 33.6 g/dL (32.0-36.0); MEAN CORPUSCULAR VOLUME 87 fl (80-97); PLATELET COUNT 123 10^3/uL (150-450); RED BLOOD COUNT 3.14 10^6/uL (4.35-5.55); RED CELL DISTRIBUTION WIDTH 18.6 % (11.5-14.0); WHITE BLOOD COUNT 4.5 10^3/uL (4.0-10.5)
[2018-04-18 07:08] LABS: ALANINE AMINOTRANSFERASE 31 U/L (21-72); ALKALINE PHOSPHATASE 161 U/L (38-126); ANION GAP 11 (5-19); ASPARTATE AMINO TRANSFERASE 46 U/L (17-59); BILIRUBIN,DIRECT 0.4 mg/dL (0.0-0.4); BILIRUBIN,TOTAL 0.8 mg/dL (0.2-1.3); BLOOD UREA NITROGEN 22 mg/dL (7-20); CALCIUM 8.8 mg/dL (8.4-10.2); CARBON DIOXIDE 29 mmol/L (22-30); CHLORIDE 100 mmol/L (98-107); GLUCOSE 81 mg/dL (75-110); POTASSIUM 4.3 mmol/L (3.6-5.0); SODIUM 140.1 mmol/L (137-145); TOTAL PROTEIN 6.3 g/dL (6.3-8.2)
[2018-04-18] MEDS: FERROUS SULFATE 325 MG TABLET PO SCH ×2 (08:15→17:18)
[2018-04-18] MEDS: METFORMIN HCL 500 MG TABLET PO SCH ×2 (08:15→16:49)
[2018-04-18] MEDS: OXYCODONE HCL IR 5 MG TABLET PO PRN ×2 (08:17→14:59)
[2018-04-18] MEDS: FUROSEMIDE INJ/PF 20 MG/2 ML SDV IV SCH ×2 (10:32→17:19)
[2018-04-18] MEDS: POTASSIUM CHLORIDE 20 MEQ/15 ML UDCUP PO SCH (10:32)
[2018-04-18] MEDS: PREGABALIN 100 MG CAPSULE PO SCH ×2 (10:33→17:19)
[2018-04-18] MEDS: ENOXAPARIN SODIUM INJ 40 MG/0.4 ML DISP.SYRIN SUBCUT SCH (10:33)
[2018-04-18] MEDS: ATENOLOL 50 MG TABLET PO SCH (10:33)
[2018-04-18] MEDS: ASPIRIN 81 MG TABLET, ENT COATED PO SCH (10:33)
[2018-04-18] MEDS: METOLAZONE 5 MG TABLET PO SCH (10:34)
[2018-04-18] MEDS: DOCUSATE SODIUM 100 MG CAPSULE PO SCH ×2 (10:34→17:18)
[2018-04-18] MEDS: ESCITALOPRAM OXALATE 10 MG TABLET PO SCH (10:34)
[2018-04-18] MEDS: SPIRONOLACTONE 25 MG TABLET PO SCH (10:35)
--- NOTE | 2018-04-18 16:46 | PDOC PROGRESS REPORT ---
Subjective Progress Note for:: 04/18/18 Subjective:: He has no complaints and he will be discharged home tomorrow to follow up with opthalmologist on outpatient for cataract and follow up urologist for bilateral hydrocele. Reason For Visit: GENERAL BODY SWELLING WITH NEED FOR IV ANTIBIOTICS Physical Exam Vital Signs: Temp Pulse Resp BP Pulse Ox 97.4 F 70 16 136/53 H 98 04/18/18 10:55 04/18/18 10:55 04/18/18 10:55 04/18/18 10:55 04/18/18 10:55 Intake & Output 04/17/18 04/18/18 04/19/18 06:59 06:59 06:59 Intake Total 1759 1759 811 Output Total 638 Balance 1121 1759 811 Weight 121.4 kg 121 kg General appearance: PRESENT: no acute distress, cooperative, morbidly obese, well-nourished Head exam: PRESENT: atraumatic, normocephalic Eye exam: PRESENT: EOMI, PERRLA Ear exam: PRESENT: TM's normal bilaterally Mouth exam: PRESENT: neck supple, tongue midline Respiratory exam: PRESENT: clear to auscultation jhonatan, symmetrical Cardiovascular exam: PRESENT: +S1, +S2 Pulses: PRESENT: +1 pedal pulses bilateral GI/Abdominal exam: PRESENT: normal bowel sounds, soft Rectal exam: PRESENT: deferred Extremities exam: PRESENT: full ROM Musculoskeletal exam: PRESENT: full ROM Neurological exam: PRESENT: alert, awake, oriented to person, oriented to place , oriented to time Psychiatric exam: PRESENT: normal mood Results Laboratory Results: 04/18/18 05:15 04/18/18 05:15 04/17/18 04/18/18 04/18/18 18:55 05:15 05:15 WBC 5.8 4.5 RBC 3.19 L 3.14 L Hgb 9.2 L 9.2 L Hct 28.0 L 27.4 L MCV 88 87 MCH 28.8 29.3 MCHC 32.8 33.6 RDW 18.3 H 18.6 H Plt Count 133 L 123 L Sodium 140.1 Potassium 4.3 Chloride 100 Carbon Dioxide 29 Anion Gap 11 BUN 22 H Creatinine 0.90 Est GFR ( Amer) > 60 Est GFR (Non-Af Amer) > 60 Glucose 81 Calcium 8.8 Total Bilirubin 0.8 AST 46 ALT 31 Alkaline Phosphatase 161 H Total Protein 6.3 Albumin 3.0 L Impressions: Scrotum Ultrasound 04/04/18 00:00 IMPRESSION: No testicular mass or torsion. Epididymitis. Bilateral hydroceles. Generalized scrotal wall thickening. Chest X-Ray 04/07/18 00:00 IMPRESSION: CENTRAL VENOUS ACCESS CATHETER IN APPROPRIATE LOCATION. NO PNEUMOTHORAX. NEW CENTRAL LINE. Abdomen Ultrasound 04/08/18 00:00 IMPRESSION: Trace nonspecific free fluid in the abdomen. Assessment & Plan - Diagnosis (1) Epididymitis Is this a current diagnosis for this admission?: Yes Plan: We will put him on Zosyn 3.375 mg q6h IV; Ct with Levaquin 750 mg daily po; elevate the scrotum. F/u urologist, Dr Puentes. (2) Scrotal swelling Is this a current diagnosis for this admission?: Yes Plan: Gen. body swelling/Scrotal swelling- we will switch him to Lasix 20 mg BID IV; Metolazone 5 mg daily po; strict input/output chart; daily weight; monitor chemistries daily. D/C Amlodipine. (3) Diabetes mellitus type 2 in obese Is this a current diagnosis for this admission?: Yes Plan: Ct with accucheck QAC, QHS with slidding scale humalog insulin as per [facility] protocol; Lantus insulin 50 iu qhs subcut; Metformin 1000mg BID po; 1800 calorie ADA diet. (4) Hypertension Qualifiers: Hypertension type: essential hypertension Qualified Code(s): I10 - Essential (primary) hypertension Is this a current diagnosis for this admission?: Yes Plan: Ct with Atenolol 100 mg qd po; switch to Hydralazine 10 mg TID po; D/C Amlodipine due to worsening body swelling and leg swelling; 2 g sodium diet. (5) Hyperlipidemia Qualifiers: Hyperlipidemia type: unspecified Qualified Code(s): E78.5 - Hyperlipidemia , unspecified Is this a current diagnosis for this admission?: Yes Plan: Ct with Atorvastatin 20 mg qhs po; 200 mg cholesterol diet. (6) Diabetic neuropathy Is this a current diagnosis for this admission?: Yes Plan: Ct with Lyrica 100 mg BID po. (7) Cirrhosis Qualifiers: Hepatic cirrhosis type: other cirrhosis Qualified Code(s): K74.69 - Other cirrhosis of liver Is this a current diagnosis for this admission?: Yes Plan: Ct with Lactulose 30 mls q6h po; Metolazone 5 mg qd po; Lasix 40 mg BID IV; Spironolactone 25 mg qd po. (8) Asthma Qualifiers: Asthma severity: unspecified severity Asthma complication type: uncomplicated Qualified Code(s): J45.909 - Unspecified asthma, uncomplicated Is this a current diagnosis for this admission?: Yes Plan: Ct with Albuterol nebs 3mls q6h prn; Ventolin HFA- 2 puffs q6h prn. (9) Coronary artery disease Qualifiers: Coronary Disease-Associated Artery/Lesion type: [place] artery [place] vs. transplanted heart: [place] heart Associated angina: without angina Qualified Code(s): I25.10 - Atherosclerotic heart disease of [place] coronary artery without angina pectoris Is this a current diagnosis for this admission?: Yes Plan: Ct with Aspirin 81 mg qd po; NTG 0.4mg q 5minutes prn S/L x3. Cardiac diet. (10) Cervicalgia Is this a current diagnosis for this admission?: Yes Plan: Ct with oxycodone 5 mg q6h po prn; Methadone 10 mg TID prn po; Ibuprofen 600 mg q8h po prn. (11) Reflux esophagitis Is this a current diagnosis for this admission?: Yes Plan: Ct with Prevacid 30 mg qd po since Nexium is not in our formulary; Promethazine 25 mg BID prn PO. (12) Narcolepsy Is this a current diagnosis for this admission?: Yes Plan: Ct with Provigil 200 mg qd po. (13) Depression Is this a current diagnosis for this admission?: Yes Plan: Ct with Lexapro 20 mg qd po. (14) Anemia of chronic disease Is this a current diagnosis for this admission?: Yes Plan: Ct with Ferrous sulfate 325 mg BID; Pt got 2 units of PRBC on 2017.Monitor CBC daily. (15) DVT prophylaxis Is this a current diagnosis for this admission?: Yes Plan: Ct with Lovenox 40 mg daily subcut; SCD. (16) Hypokalemia Is this a current diagnosis for this admission?: Yes Plan: Ct with KCL 20 MEQ qd po; f/u chemistries daily (17) Oral candidiasis Is this a current diagnosis for this admission?: Yes Plan: Ct with Nystatin swish and swallow 5 ml q6h po.
[2018-04-18] MEDS: NYSTATIN 500000 UNIT/5 ML UDCUP PO SCH (18:53)
[2018-04-18] MEDS: ATORVASTATIN CALCIUM 20 MG TABLET PO SCH (21:03)
[2018-04-18] MEDS: INSULIN GLARGINE,HUM.REC.ANLOG 1,000 UNIT/10 ML UNIT SUBCUT SCH (21:03)
[2018-04-18] MEDS: LEVOFLOXACIN 750 MG TABLET PO SCH (21:03)
[2018-04-19] MEDS: OXYCODONE HCL IR 5 MG TABLET PO PRN ×2 (02:20→08:03)
[2018-04-19] MEDS: NYSTATIN 500000 UNIT/5 ML UDCUP PO SCH ×4 (02:20→17:48)
[2018-04-19] MEDS: PIPERACILLIN SODIUM/TAZOBACTAM 3.375 GM in NORMAL SALINE 100 ML IV SCH ×3 (02:20→14:33)
[2018-04-19] MEDS: METHADONE HCL 10 MG TABLET PO SCH ×2 (05:10→14:32)
[2018-04-19] MEDS: HYDRALAZINE HCL 10 MG TABLET PO SCH ×2 (05:10→14:32)
[2018-04-19] MEDS: LACTULOSE SYRUP 20 GM/30 ML UDCUP PO SCH ×3 (05:10→17:47)
[2018-04-19] MEDS: LANSOPRAZOLE 30 MG TAB.RAP.DR PO SCH (05:11)
[2018-04-19 05:39] LABS: ALANINE AMINOTRANSFERASE 38 U/L (21-72); ALBUMIN 2.9 g/dL (3.5-5.0); ALKALINE PHOSPHATASE 171 U/L (38-126); ANION GAP 8 (5-19); ASPARTATE AMINO TRANSFERASE 46 U/L (17-59); BILIRUBIN,DIRECT 0.3 mg/dL (0.0-0.4); BILIRUBIN,TOTAL 0.8 mg/dL (0.2-1.3); BLOOD UREA NITROGEN 21 mg/dL (7-20); CALCIUM 8.9 mg/dL (8.4-10.2); CARBON DIOXIDE 32 mmol/L (22-30); CHLORIDE 99 mmol/L (98-107); GLUCOSE 105 mg/dL (75-110); POTASSIUM 4.4 mmol/L (3.6-5.0); SODIUM 138.6 mmol/L (137-145); TOTAL PROTEIN 5.9 g/dL (6.3-8.2)
[2018-04-19] MEDS: METFORMIN HCL 500 MG TABLET PO SCH ×2 (08:00→17:47)
[2018-04-19] MEDS: FERROUS SULFATE 325 MG TABLET PO SCH ×2 (08:01→17:46)
[2018-04-19] MEDS: SPIRONOLACTONE 25 MG TABLET PO SCH (10:42)
[2018-04-19] MEDS: PREGABALIN 100 MG CAPSULE PO SCH ×2 (10:42→17:46)
[2018-04-19] MEDS: ASPIRIN 81 MG TABLET, ENT COATED PO SCH (10:42)
[2018-04-19] MEDS: DOCUSATE SODIUM 100 MG CAPSULE PO SCH ×2 (10:42→17:47)
[2018-04-19] MEDS: METOLAZONE 5 MG TABLET PO SCH (10:42)
[2018-04-19] MEDS: ESCITALOPRAM OXALATE 10 MG TABLET PO SCH (10:42)
[2018-04-19] MEDS: ATENOLOL 50 MG TABLET PO SCH (10:42)
[2018-04-19] MEDS: FUROSEMIDE INJ/PF 20 MG/2 ML SDV IV SCH ×2 (10:43→17:44)
[2018-04-19] MEDS: POTASSIUM CHLORIDE 20 MEQ/15 ML UDCUP PO SCH (10:43)
[2018-04-19] MEDS: ENOXAPARIN SODIUM INJ 40 MG/0.4 ML DISP.SYRIN SUBCUT SCH (10:45)
--- NOTE | 2018-04-19 12:18 | PDOC DISCHARGE SUMMARY ---
General - Admit/Disc Date/PCP Admission Date/Primary Care Provider: 04/06/18 16:01 BETHANIE PLUNKETT Discharge Date: 04/19/18 - Discharge Diagnosis (1) Epididymitis Is this a current diagnosis for this admission?: Yes (2) Scrotal swelling Is this a current diagnosis for this admission?: Yes (3) Diabetes mellitus type 2 in obese Is this a current diagnosis for this admission?: Yes (4) Hypertension Is this a current diagnosis for this admission?: Yes (5) Hyperlipidemia Is this a current diagnosis for this admission?: Yes (6) Diabetic neuropathy Is this a current diagnosis for this admission?: Yes (7) Cirrhosis Is this a current diagnosis for this admission?: Yes (8) Asthma Is this a current diagnosis for this admission?: Yes (9) Coronary artery disease Is this a current diagnosis for this admission?: Yes (10) Cervicalgia Is this a current diagnosis for this admission?: Yes (11) Reflux esophagitis Is this a current diagnosis for this admission?: Yes (12) Narcolepsy Is this a current diagnosis for this admission?: Yes (13) Depression Is this a current diagnosis for this admission?: Yes (14) Anemia of chronic disease Is this a current diagnosis for this admission?: Yes (15) DVT prophylaxis Is this a current diagnosis for this admission?: Yes (16) Hypokalemia Is this a current diagnosis for this admission?: Yes (17) Oral candidiasis Is this a current diagnosis for this admission?: Yes - Additional Information Resuscitation Status: Full Code Prescriptions: Hydralazine HCl [Apresoline 10 mg Tablet] 10 mg PO Q8 30 Days #90 tablet Levofloxacin [Levaquin 500 mg Tablet] 500 mg PO DAILY #7 tablet Spironolactone 50 mg PO DAILY 3 Days #30 tablet Home Medications: Atenolol [Tenormin 100 mg Tablet] 100 mg PO QAM 04/04/18 Atorvastatin Calcium [Lipitor 20 mg Tablet] 20 mg PO QPM 04/04/18 Ergocalciferol (Vitamin D2) [Drisdol 50,000 unit (1.25MG) Capsule] 50,000 unit PO MO@0800 04/04/18 Escitalopram Oxalate [Lexapro] 20 mg PO QHS 04/04/18 Insulin Aspart [Novolog Flexpen] 10 unit SQ .ASDIR 04/04/18 Insulin Aspart [Novolog Flexpen] 30 unit SQ AC 04/04/18 Lactulose [Constulose 10 gm/15 mL Oral Solution] 30 ml PO QID 04/04/18 Metformin HCl [Glucophage] 1,000 mg PO BID 04/04/18 Methadone HCl [Dolophine 10 mg Tablet] 5 mg PO QHS 04/04/18 Methadone HCl [Dolophine 10 mg Tablet] 10 mg PO BID 04/04/18 Metolazone [Zaroxolyn 5 mg Tablet] 5 mg PO DAILY 04/04/18 Modafinil [Provigil] 200 mg PO DAILY 04/04/18 Furosemide [Lasix 20 mg Tablet] 20 mg PO BID 30 Days #60 04/19/18 Hydralazine HCl [Apresoline 10 mg Tablet] 10 mg PO Q8 30 Days #90 tablet Insulin Glargine,Hum.rec.anlog [Lantus Solostar] 50 mg SQ BID #0 04/19/18 Levofloxacin [Levaquin 500 mg Tablet] 500 mg PO DAILY #7 tablet 04/19/18 Spironolactone 50 mg PO DAILY 3 Days #30 tablet 04/19/18 History of Present Illness History of Present Illness: WINDY BERMAN is a 63 year old male wiithhx of DM2/HTN/Hyperlipidemia/DM neuropathy/CAD s.p CABG/Cirrhosis secondary to NAFLD/Asthma/GERD/Narcolepsy/ Constipation/Rhinitis/Fe. def. anemia/Vitamin D def/Depression, who was discharged from this hospital on 02/23/2018 where he was treated for hepatic encephalopathy/hyperkalemia/AMS. He was seen for transition of care on 2017 since pt claimed he could not afford the office visit co-pay for office visit within 1 week of discharge. We had increased his Lasix to 20 mg BID and added Metolazone 5 mg daily, but patient did not his Lasix dose and still continued on 20 mg daily. He came to ER complaining of worsening gen. body swelling, scrotal swelling and leg swelling. He was admitted for 48 hour observation for IV diuretics. Hospital Course Hospital Course: 63 year old man who was admitted for massive scrotal swelling/Epididymitis and he had scrotal US that confirmed epididymitis and jhonatan. hydrocele. He was seen in consult by urologist, Dr Puentes. He was put on Zosyn and Levaquin. He had Abd/pelvic US that did not show any significant ascites. ECHO showed normal EF and no ischemic changes. He was also seen in consult by opthalmologist with [facility] and he confirmed he has cataract and recommended pt to follow up with him on outpatient for mgt. Pt was evaluated by certified financial planner and he wanted to go back home. He will discharged home today to follow up with his PCP, urologist and opthalmologist for continuity of care. Pt and his are in agreement with this plan of care. Physical Exam Vital Signs: Temp Pulse Resp BP Pulse Ox 98.9 F 74 16 138/57 H 97 04/19/18 11:05 04/19/18 11:05 04/19/18 11:05 04/19/18 11:05 04/19/18 11:05 Intake & Output 04/18/18 04/19/18 04/20/18 06:59 06:59 06:59 Intake Total 1759 1161 Balance 1759 1161 Weight 121 kg 117.5 kg General appearance: PRESENT: no acute distress, cooperative, morbidly obese, well-nourished Head exam: PRESENT: atraumatic, normocephalic Eye exam: PRESENT: EOMI, PERRLA Ear exam: PRESENT: TM's normal bilaterally Mouth exam: PRESENT: neck supple, tongue midline Neck exam: PRESENT: full ROM Respiratory exam: PRESENT: clear to auscultation jhonatan, symmetrical Cardiovascular exam: PRESENT: +S1, +S2 Pulses: PRESENT: +2 pedal pulses bilateral GI/Abdominal exam: PRESENT: normal bowel sounds, soft Rectal exam: PRESENT: deferred Gentrourinary exam: PRESENT: scrotal swelling Extremities exam: PRESENT: full ROM Musculoskeletal exam: PRESENT: full ROM Neurological exam: PRESENT: alert, awake, oriented to person, oriented to place , oriented to time Psychiatric exam: PRESENT: normal mood Results Laboratory Results: 04/18/18 05:15 04/19/18 05:10 04/19/18 05:10 Sodium 138.6 Potassium 4.4 Chloride 99 Carbon Dioxide 32 H Anion Gap 8 BUN 21 H Creatinine 1.09 Est GFR ( Amer) > 60 Est GFR (Non-Af Amer) > 60 Glucose 105 Calcium 8.9 Total Bilirubin 0.8 AST 46 ALT 38 Alkaline Phosphatase 171 H Total Protein 5.9 L Albumin 2.9 L Impressions: Scrotum Ultrasound 04/04/18 00:00 IMPRESSION: No testicular mass or torsion. Epididymitis. Bilateral hydroceles. Generalized scrotal wall thickening. Chest X-Ray 04/07/18 00:00 IMPRESSION: CENTRAL VENOUS ACCESS CATHETER IN APPROPRIATE LOCATION. NO PNEUMOTHORAX. NEW CENTRAL LINE. Abdomen Ultrasound 04/08/18 00:00 IMPRESSION: Trace nonspecific free fluid in the abdomen. Qualifiers - * PATIENT BEING DISCHARGED WITH ANY OF THE FOLLOWING DIAGNOSIS: No
[2018-04-19] MEDS: INSULIN LISPRO 100 UNIT/ML 3 ML VIAL SUBCUT PRN (12:50)
[2018-04-19 16:06] VITALS: BP 126/52
== END 2018-04-19 18:31 | disposition home or self-care (01) | DRG 728 ==
LOC: ER 21:11 → EH 04-04 05:46 → 4N 04-04 15:39 → OBSVTOIN 04-06 16:01
PROVIDERS: ADMIT Internal Medicine; ATTEND Internal Medicine
PROC: 02HV33Z Insertion of Infusion Device into Superior Vena Cava, Percutaneous Approach (ICD-10-PCS; principal; 2018-04-07)
DX: N45.1 Epididymitis (principal); B37.0 Candidal stomatitis; D50.9 Iron deficiency anemia, unspecified; E11.9 Type 2 diabetes mellitus without complications; I10 Essential (primary) hypertension; E78.5 Hyperlipidemia, unspecified; I50.9 Heart failure, unspecified; E11.40 Type 2 diabetes mellitus with diabetic neuropathy, unspecified; K74.60 Unspecified cirrhosis of liver; J45.909 Unspecified asthma, uncomplicated; N43.3 Hydrocele, unspecified; I25.10 Atherosclerotic heart disease of native coronary artery without angina pectoris; K21.0 Gastro-esophageal reflux disease with esophagitis; M54.2 Cervicalgia; E87.6 Hypokalemia; F32.9 Major depressive disorder, single episode, unspecified; G47.419 Narcolepsy without cataplexy; Z79.899 Other long term (current) drug therapy; Z79.4 Long term (current) use of insulin; Z79.84 Long term (current) use of oral hypoglycemic drugs; Z95.1 Presence of aortocoronary bypass graft; Z87.891 Personal history of nicotine dependence
CPT/HCPCS: 36415; 36430; 71045; 76700; 76870; 80048; 80053; 82962; 83880; 84484; 85025; 85027; 85610; 85730; 86850; 86900; 86901; 86920; 93005; 93010; 93306; 96374; 96375; 99285; C1751; G0378; J1650; J1815; J1940; J1956; J2270; J2543; J3490; P9016